=== PATIENT | female | born 1930 | race Caucasian/White ===

== ENCOUNTER 2017-06-06 18:01 | Inpatient (IN) | payer OTHER ==
--- NOTE | 2017-06-06 18:40 | PDOC ---
Attending Attestation - Resident Resident Name: NedStanOmega - ED Attending Attestation I have performed the following: I have examined & evaluated the patient, The case was reviewed & discussed with the resident, I agree w/resident's findings & plan, Exceptions are as noted - HPI HPI: 06/06/17 18:41 86yo female presents from her NH for eval of fever of 103, elevated wbc to 27, and 1 episode of n/v yesterday. Pt states feeling better today. Currently denies all complaints. No mayo. NO neck pain. No meningeal signs. No cp/sob/ cough. No abd pain. No n/v/d. No dysuria or urinary freq. Pt sent by PMD for further eval of possible sepsis. Pt is hot upon arrival. Pt with mild ecchymosis to UE. Pt awake, alert, oriented. Pt had a cxr performed outpt that was negative for acute pathology. - Physicial Exam PE: 06/06/17 18:49 Gen: awake, alert, oriented, hot to touch Head: nc/at HEENT: dry mm, cracked tongue, post pharynx clear, nares clear Neck: supple, no lymphadenopathy Heart: +s1s2 tachy Lungs: cta b/l, no rales, rhonchi, wheezing Abd: soft, diffusely ttp - specifically lower abd and suprapubic, no rebound or guarding, no cva ttp Ext: no c/c/e, scars to b/l anterior knees from prior sx, old deformity to R foot, mild weakness generally, no focal weakness Neuro: cn ii-xii grossly intact, no focal deficits skin: ecchymosis to arms, intact, hot to touch - Medical Decision Making 06/06/17 18:21 I, Dr. Gema Beth, DO, attest that this document has been prepared under my direction and personally reviewed by me in its entirety. I further attest, that it accurately reflects all work, treatment, procedures and medical decision -making performed by me. Heart Score/ECG Review - ECG Intrepretation Comment:: 06/06/17 18:52 sinus tach at 105, L axis, interventricular conduction delay, poor r wave progression
[2017-06-06] MEDS ORDERED: SODIUM CHLORIDE 0.9% 1000 ML INFUS.BAG IV STA (18:45)
[2017-06-06 19:21] LABS: VENOUS BLOOD GAS HCO3 25.5 meq/L (19-25); VENOUS PH 7.4 (7.32-7.42)
[2017-06-06 19:27] LABS: BASOPHIL 0.3 % (0-2.0); EOSINOPHIL 2.1 % (0-4.5); MCHC 33.6 g/dl (32.0-36.0); MEAN CELL VOLUME 92.4 fl (80-96); NEUTROPHILS 84.2 % (42.8-82.8); PLATELET COUNT 269 K/MM3 (134-434); RDW 13.2 % (11.6-15.6); WHITE BLOOD COUNT 16.9 K/mm3 (4.0-10.0)
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
[2017-06-06] MEDS ORDERED: PIPERACILLIN/TAZOB 3.375 GM 3.375 GM in DEXTROSE 5%-WATER - 50 ML IVPB ONE (19:41)
[2017-06-06] MEDS ORDERED: PIPERACILLIN/TAZOB 3.375 GM 50 ML IVPB ONE (20:12)
[2017-06-06 20:54] LABS: URINE APPEARANCE CLOUDY; URINE BILIRUBIN NEGATIVE (NEGATIVE); URINE BLOOD 1+ (NEGATIVE); URINE COLOR YELLOW; URINE GLUCOSE (UA) NEGATIVE (NEGATIVE); URINE KETONE NEGATIVE (NEGATIVE); URINE NITRITE POSITIVE (NEGATIVE); URINE PROTEIN NEGATIVE (NEGATIVE); URINE UROBILINOGEN NEGATIVE mg/dL (0.2-1.0)
[2017-06-06 20:55] LABS: URINE LEUK ESTERASE 3+ (NEGATIVE)
[2017-06-06 20:58] LABS: URINE BACTERIA MANY /hpf (NONE SEEN); URINE MUCUS RARE; URINE RBC 3 /hpf (0-3); URINE WBC 576 /hpf (3-5)
[2017-06-06 21:09] LABS: INR 3.25 (0.82-1.09); PROTHROMBIN TIME (PATIENT) 36.6 SEC (9.98-11.88)
[2017-06-06 21:11] LABS: ACTIVATED PTT 45.2 SECONDS (26.9-34.4)
[2017-06-06 21:21] LABS: ALBUMIN 2.7 g/dl (3.4-5.0); ALK PHOS 100 U/L (45-117); ANION GAP 10 (8-16); BILIRUBIN,TOTAL 0.6 mg/dL (0.2-1.0); CO2 23 mmol/L (21-32); CREATININE 1.4 mg/dL (0.55-1.02); GLUCOSE,RANDOM 105 mg/dL (74-106); SGOT/AST 46 U/L (15-37); SGPT/ALT 39 U/L (12-78); TOT PROT 5.8 g/dl (6.4-8.2)
[2017-06-06 21:46] LABS: CALCIUM 8.7 mg/dL (8.5-10.1)
--- NOTE | 2017-06-06 22:12 | PDOC ---
*Physical Exam - Vital Signs Last Vital Signs Temp Pulse Resp BP Pulse Ox 98 F 69 18 110/52 100 06/06/17 18:55 06/06/17 18:06 06/06/17 18:06 06/06/17 18:06 06/06/17 18:06 <AlejoraPierce - Last Filed: 06/06/17 22:12> - Vital Signs Last Vital Signs Temp Pulse Resp BP Pulse Ox 98 F 69 18 110/52 100 06/06/17 18:55 06/06/17 18:06 06/06/17 18:06 06/06/17 18:06 06/06/17 18:06 <Dilcia Aguilarew - Last Filed: 06/06/17 22:19> ED Treatment Course - LABORATORY CBC & Chemistry Diagram: 06/06/17 18:50 06/06/17 20:40 - ADDITIONAL ORDERS Additional order review: Laboratory Results 06/06/17 06/06/17 06/06/17 20:40 20:40 20:40 INR 3.25 H PTT (Actin FS) 45.2 H VBG pH POC VBG pCO2 POC VBG pO2 Mixed VBG HCO3 Sodium 135 L Potassium 4.1 Chloride 102 Carbon Dioxide 23 Anion Gap 10 BUN 35 H Creatinine 1.4 H Creat Clearance w eGFR 35.82 Random Glucose 105 Lactic Acid Calcium 8.7 Total Bilirubin 0.6 AST 46 H ALT 39 Alkaline Phosphatase 100 Creatine Kinase Troponin I Total Protein 5.8 L Albumin 2.7 L Urine Color Yellow Urine Appearance Cloudy Urine pH 7.0 Ur Specific [place] 1.010 Urine Protein Negative Urine Glucose (UA) Negative Urine Ketones Negative Urine Blood 1+ H Urine Nitrite Positive Urine Bilirubin Negative Urine Urobilinogen Negative Ur Leukocyte Esterase 3+ H Urine RBC 3 Urine WBC 576 Ur Epithelial Cells Rare Urine Bacteria Many Urine Mucus Rare 06/06/17 06/06/17 06/06/17 19:15 18:50 18:50 INR PTT (Actin FS) VBG pH 7.40 POC VBG pCO2 41.7 POC VBG pO2 38.5 Mixed VBG HCO3 25.5 H Sodium Cancelled Potassium Cancelled Chloride Cancelled Carbon Dioxide Cancelled Anion Gap Cancelled BUN Cancelled Creatinine Cancelled Creat Clearance w eGFR Cancelled Random Glucose Cancelled Lactic Acid 1.0 Calcium Cancelled Total Bilirubin Cancelled AST Cancelled ALT Cancelled Alkaline Phosphatase Cancelled Creatine Kinase Cancelled Troponin I Cancelled Total Protein Cancelled Albumin Cancelled Urine Color Urine Appearance Urine pH Ur Specific [place] Urine Protein Urine Glucose (UA) Urine Ketones Urine Blood Urine Nitrite Urine Bilirubin Urine Urobilinogen Ur Leukocyte Esterase Urine RBC Urine WBC Ur Epithelial Cells Urine Bacteria Urine Mucus 06/06/17 18:50 RBC 3.97 MCV 92.4 MCHC 33.6 RDW 13.2 MPV 7.0 L Neutrophils % 84.2 H Lymphocytes % 8.5 Monocytes % 4.9 Eosinophils % 2.1 Basophils % 0.3 - RADIOLOGY Radiology Studies Ordered: Category Date Time Status ABDOMEN & PELVIS CT W/O CONTR [CT] Stat CT Scan 06/06/17 21:41 Taken - Medications Given in the ED: ED Medications Discontinued Medications Generic Name Dose Route Start Last Admin Trade Name Freq PRN Reason Stop Dose Admin Piperacillin Sod/Tazobactam 50 mls @ 100 mls/hr 06/06/17 19:41 06/06/17 21:00 Sod 3.375 gm/ Dextrose IVPB 06/06/17 20:10 100 mls/hr ONCE ONE Administration Protocol Sodium Chloride 1,089 ml 06/06/17 18:45 06/06/17 19:41 Normal Saline - IV 06/06/17 18:46 1,089 ml ONCE STA Administration <Pierce Chand - Last Filed: 06/06/17 22:12> - LABORATORY CBC & Chemistry Diagram: 06/06/17 18:50 06/06/17 20:40 - ADDITIONAL ORDERS Additional order review: Laboratory Results 06/06/17 06/06/17 06/06/17 20:40 20:40 20:40 INR 3.25 H PTT (Actin FS) 45.2 H VBG pH POC VBG pCO2 POC VBG pO2 Mixed VBG HCO3 Sodium 135 L Potassium 4.1 Chloride 102 Carbon Dioxide 23 Anion Gap 10 BUN 35 H Creatinine 1.4 H Creat Clearance w eGFR 35.82 Random Glucose 105 Lactic Acid Calcium 8.7 Total Bilirubin 0.6 AST 46 H ALT 39 Alkaline Phosphatase 100 Creatine Kinase Troponin I Total Protein 5.8 L Albumin 2.7 L Urine Color Yellow Urine Appearance Cloudy Urine pH 7.0 Ur Specific [place] 1.010 Urine Protein Negative Urine Glucose (UA) Negative Urine Ketones Negative Urine Blood 1+ H Urine Nitrite Positive Urine Bilirubin Negative Urine Urobilinogen Negative Ur Leukocyte Esterase 3+ H Urine RBC 3 Urine WBC 576 Ur Epithelial Cells Rare Urine Bacteria Many Urine Mucus Rare 06/06/17 06/06/17 06/06/17 19:15 18:50 18:50 INR PTT (Actin FS) VBG pH 7.40 POC VBG pCO2 41.7 POC VBG pO2 38.5 Mixed VBG HCO3 25.5 H Sodium Cancelled Potassium Cancelled Chloride Cancelled Carbon Dioxide Cancelled Anion Gap Cancelled BUN Cancelled Creatinine Cancelled Creat Clearance w eGFR Cancelled Random Glucose Cancelled Lactic Acid 1.0 Calcium Cancelled Total Bilirubin Cancelled AST Cancelled ALT Cancelled Alkaline Phosphatase Cancelled Creatine Kinase Cancelled Troponin I Cancelled Total Protein Cancelled Albumin Cancelled Urine Color Urine Appearance Urine pH Ur Specific [place] Urine Protein Urine Glucose (UA) Urine Ketones Urine Blood Urine Nitrite Urine Bilirubin Urine Urobilinogen Ur Leukocyte Esterase Urine RBC Urine WBC Ur Epithelial Cells Urine Bacteria Urine Mucus 06/06/17 18:50 RBC 3.97 MCV 92.4 MCHC 33.6 RDW 13.2 MPV 7.0 L Neutrophils % 84.2 H Lymphocytes % 8.5 Monocytes % 4.9 Eosinophils % 2.1 Basophils % 0.3 - Medications Given in the ED: ED Medications Discontinued Medications Generic Name Dose Route Start Last Admin Trade Name Freq PRN Reason Stop Dose Admin Piperacillin Sod/Tazobactam 50 mls @ 100 mls/hr 06/06/17 19:41 06/06/17 21:00 Sod 3.375 gm/ Dextrose IVPB 06/06/17 20:10 100 mls/hr ONCE ONE Administration Protocol Sodium Chloride 1,089 ml 06/06/17 18:45 06/06/17 19:41 Normal Saline - IV 06/06/17 18:46 1,089 ml ONCE STA Administration <Jesu Aguilar - Last Filed: 06/06/17 22:19> Medical Decision Making - Medical Decision Making 06/06/17 22:[address] Armando Yi @21:59pm. Case discussed. <Jesu Aguilar - Last Filed: 06/06/17 22:19> *DC/Admit/Observation/Transfer - Discharge Dispostion Admit: Yes <Pierce Chand - Last Filed: 09/06/17 22:12> <Jesu Aguilar - Last Filed: 06/06/17 22:19> Diagnosis at time of Disposition: UTI (urinary tract infection) Qualifiers: Indwelling urinary catheter type: unspecified - Referrals Referrals: Armando Pierce MD [Primary Care Provider] - - Patient Instructions - Post Discharge Activity
[2017-06-06 22:15] LABS: CPK 218 IU/L (26-192)
[2017-06-06 22:16] LABS: TROPONIN I < 0.02 ng/ml (0.00-0.05)
[2017-06-06] MEDS ORDERED: ACETAMINOPHEN 325 MG TABLET (FP) PO PRN (22:31)
[2017-06-07 00:27] VITALS: BMI 26.9
[2017-06-07 07:48] LABS: MCH 30.1 pg (25.7-33.7); MCHC 32.9 g/dl (32.0-36.0); MEAN CELL VOLUME 91.5 fl (80-96); MEAN PLT VOLUME 6.9 fl (7.5-11.1); PLATELET COUNT 322 K/MM3 (134-434); RDW 13.4 % (11.6-15.6); WHITE BLOOD COUNT 13.8 K/mm3 (4.0-10.0)
[2017-06-07 08:03] LABS: INR 3.02 (0.82-1.09)
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
--- NOTE | 2017-06-07 08:26 | PN ---
Teaching Attending Note Name of Resident: Bernardo Gavin ATTENDING PHYSICIAN STATEMENT I saw and evaluated the patient. I reviewed the resident's note and discussed the case with the resident. I agree with the resident's findings and plan as documented. SUBJECTIVE:Brought for evaluation of fever 103 Alert NAD "NOt sure why she is here" OBJECTIVE: ASSESSMENT AND PLAN: Selected Entries 06/07/17 06:00 Temperature 99.4 F Pulse Rate 73 Respiratory 20 Rate Blood Pressure 97/47 Lung Clear Cor S1 S2 RR Abd Suprapubic tenderness Microbiology Laboratory Tests 06/06/17 06/06/17 06/06/17 18:50 18:50 20:40 WBC 16.9 H Hgb 12.3 Plt Count 269 BUN Creatinine Creat Clearance w eGFR Lactic Acid 1.0 Ur Leukocyte Esterase 3+ H Urine RBC 3 Urine WBC 576 06/06/17 20:40 WBC Hgb Plt Count BUN 35 H Creatinine 1.4 H Creat Clearance w eGFR 35.82 Lactic Acid Ur Leukocyte Esterase Urine RBC Urine WBC ASSESSMENT FEVER AND UTI PLAN CEFTRIAXONE 1 GRAM DAILY PENDING C/S CT ABD REVIEWED DOUBT INTRABD INFECTION Problem List - Problems (1) Fever Code(s): R50.9 - FEVER, UNSPECIFIED
[2017-06-07 08:39] LABS: ALBUMIN 2.8 g/dl (3.4-5.0); ALK PHOS 99 U/L (45-117); ANION GAP 11 (8-16); BILIRUBIN,TOTAL 0.8 mg/dL (0.2-1.0); CALCIUM 9.1 mg/dL (8.5-10.1); CO2 23 mmol/L (21-32); CREATININE 1.4 mg/dL (0.55-1.02); GLUCOSE,RANDOM 86 mg/dL (74-106); SGOT/AST 39 U/L (15-37); SGPT/ALT 39 U/L (12-78); TOT PROT 5.7 g/dl (6.4-8.2)
[2017-06-07] MEDS ORDERED: PT OWN MED DRAWER 7, Y5N ONE ×2 (09:23→11:45)
[2017-06-07] MEDS ORDERED: cefTRIAXone SODIUM 1 GM VIAL ONE (09:24)
[2017-06-07] MEDS ORDERED: DEXTROSE 5%-WATER - 50 ML IVPB ONE (09:24)
[2017-06-07] MEDS: SPIRONOLACTONE 25 MG TABLET (FP) PO SCH (09:30)
[2017-06-07] MEDS: ASPIRIN 81 MG CHEWABLE TABLETS PO SCH (09:31)
[2017-06-07] MEDS: CARVEDILOL 6.25 MG TABLET (FP) PO SCH (09:31)
[2017-06-07] MEDS: OXYBUTYNIN CHLORIDE 5 MG TABLET PO SCH (09:31)
[2017-06-07] MEDS: LACTOBACILLUS ACIDOPHILUS 1 EACH TAB (FP) PO SCH ×2 (09:31→21:24)
[2017-06-07] MEDS: PANTOPRAZOLE 40 MG TABLET (FP) PO SCH (09:32)
[2017-06-07] MEDS: SIMETHICONE 80 MG TAB.CHEW (FP) PO SCH (09:32)
[2017-06-07] MEDS: CHOLECALCIFEROL (VITAMIN D3) 1,000 UNIT TABLET (FP) PO SCH (09:32)
[2017-06-07] MEDS: SENNOSIDES 8.6MG TABLET (FP) PO SCH (09:32)
[2017-06-07] MEDS: MULTIVITAMINS (DAILY MVI) TABLET (FP) PO SCH (09:32)
[2017-06-07] MEDS: ASCORBIC ACID 500 MG TABLET (FP) PO SCH (09:32)
[2017-06-07] MEDS: CEFTRIAXONE 1 GM in DEXTROSE 5%-WATER - 50 ML IVPB SCH (09:33)
[2017-06-07] MEDS ORDERED: cefTRIAXone 1 GM/50 ML BAG (PRE-DOCKED) IVPB SCH (10:00)
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
[2017-06-07] MEDS: DOCUSATE NA 100 MG/10 ML UNIT-DOSE CUPS PO SCH (11:48)
--- NOTE | 2017-06-07 12:26 | EKG ---
Test Reason : Blood Pressure : / mmHG Vent. Rate : 105 BPM Atrial Rate : 105 BPM P-R Int : 320 ms QRS Dur : 140 ms QT Int : 392 ms P-R-T Axes : 073 -49 084 degrees QTc Int : 518 ms SINUS TACHYCARDIA WITH 1ST DEGREE A-V BLOCK LEFT AXIS DEVIATION NON-SPECIFIC INTRA-VENTRICULAR CONDUCTION BLOCK CANNOT RULE OUT ANTERIOR INFARCT , AGE UNDETERMINED ABNORMAL ECG NO PREVIOUS ECGS AVAILABLE Confirmed by MONALISA ALEJO, SANDOR ([id number]) on 06/07/2017 12:26:13 PM Referred By: Confirmed By:SANDOR SHELDON MD
[2017-06-07] MEDS: WARFARIN NA 2 MG TABLET (UD) PO SCH (17:59)
[2017-06-07] MEDS: ROSUVASTATIN CA 5 MG TABLET (FP) PO SCH (21:24)
[2017-06-08 08:00] LABS: MCH 30.4 pg (25.7-33.7); MCHC 33.1 g/dl (32.0-36.0); MEAN PLT VOLUME 6.8 fl (7.5-11.1); PLATELET COUNT 340 K/MM3 (134-434); RDW 13.1 % (11.6-15.6); WHITE BLOOD COUNT 11.1 K/mm3 (4.0-10.0)
[2017-06-08 08:19] LABS: INR 1.91 (0.82-1.09); PROTHROMBIN TIME (PATIENT) 21.3 SEC (9.98-11.88)
[2017-06-08 08:30] LABS: ALBUMIN 2.6 g/dl (3.4-5.0); ALK PHOS 99 U/L (45-117); ANION GAP 12 (8-16); BILIRUBIN,TOTAL 0.7 mg/dL (0.2-1.0); CALCIUM 9.4 mg/dL (8.5-10.1); CO2 22 mmol/L (21-32); CREATININE 1.4 mg/dL (0.55-1.02); GLUCOSE,RANDOM 86 mg/dL (74-106); SGOT/AST 32 U/L (15-37); SGPT/ALT 32 U/L (12-78); TOT PROT 5.8 g/dl (6.4-8.2)
--- NOTE | 2017-06-08 09:29 | PN ---
Progress Note, Physician History of Present Illness: Pt w/o fever, chills, SOB, CP, palp, abd pain, diarrhea, dysuria. - Current Medication List Current Medications: Active Medications Acetaminophen (Tylenol -) 650 mg PO Q6H PRN PRN Reason: FEVER OR PAIN Ascorbic Acid (Vitamin C -) 500 mg PO DAILY [facility] Last Admin: 06/07/17 09:32 Dose: 500 mg Aspirin (Asa -) 81 mg PO DAILY [facility] Last Admin: 06/07/17 09:31 Dose: 81 mg Carvedilol (Coreg -) 6.25 mg PO DAILY [facility] Last Admin: 06/07/17 09:31 Dose: 6.25 mg Cholecalciferol (Vitamin D3 -) 1,000 unit PO DAILY [facility] Last Admin: 06/07/17 09:32 Dose: 1,000 unit Docusate Sodium (Colace Liquid -) 150 mg PO DAILY [facility] Last Admin: 06/07/17 11:48 Dose: 150 mg Ceftriaxone Sodium 1 gm/ (Dextrose) 50 mls @ 100 mls/hr IVPB DAILY [facility] Last Admin: 06/07/17 09:33 Dose: 100 mls/hr Lactobacillus Acidophilus (Bacid -) 1 tab PO BID [facility] Last Admin: 06/07/17 21:24 Dose: 1 tab Multivitamins/Minerals/Vitamin C (Tab-A-Vit -) 1 tab PO DAILY [facility] Last Admin: 06/07/17 09:32 Dose: 1 tab Oxybutynin Chloride (Ditropan -) 5 mg PO DAILY [facility] Last Admin: 06/07/17 09:31 Dose: 5 mg Pantoprazole Sodium (Protonix -) 40 mg PO DAILY [facility] Last Admin: 06/07/17 09:32 Dose: 40 mg Rosuvastatin Calcium (Crestor -) 5 mg PO HS [facility] Last Admin: 06/07/17 21:24 Dose: 5 mg Senna (Senna -) 1 tab PO DAILY [facility] Last Admin: 06/07/17 09:32 Dose: 1 tab Simethicone (Mylicon -) 80 mg PO DAILY [facility] Last Admin: 06/07/17 09:32 Dose: 80 mg Spironolactone (Aldactone -) 25 mg PO DAILY [facility] Last Admin: 06/07/17 09:30 Dose: 25 mg Warfarin Sodium (Coumadin -) 4 mg PO TuThSa@1800 [facility] Last Admin: 06/07/17 17:59 Dose: Not Given Warfarin Sodium (Coumadin -) 6 mg PO SuMoWeFr@1800 [facility] - Objective Vital Signs: Vital Signs Temperature 97.7 F 06/08/17 06:00 Pulse Rate 67 06/08/17 06:00 Respiratory Rate 20 06/08/17 06:00 Blood Pressure 121/57 06/08/17 06:00 O2 Sat by Pulse Oximetry (%) 100 06/07/17 21:00 Constitutional: Yes: No Distress, Calm Cardiovascular: Yes: Regular Rate and Rhythm, S1, S2 Respiratory: Yes: Regular, CTA Bilaterally. No: Rales Gastrointestinal: Yes: Normal Bowel Sounds, Soft. No: Tenderness Edema: No Neurological: Yes: Alert, Oriented Labs: CBC, BMP 06/08/17 06:00 06/08/17 06:00 INR, PTT INR 1.91 (0.82-1.09) H D 06/08/17 06:00 Problem List - Problems (1) UTI (urinary tract infection) Code(s): N39.0 - URINARY TRACT INFECTION, SITE NOT SPECIFIED (2) Sepsis Code(s): A41.9 - SEPSIS, UNSPECIFIED ORGANISM (3) Atrial fibrillation Code(s): I48.91 - UNSPECIFIED ATRIAL FIBRILLATION (4) Hypertension Code(s): I10 - ESSENTIAL (PRIMARY) HYPERTENSION Assessment/Plan IV abtx ID consult; case was d/w Dr. Morales. AM labs F/u INR Encourage PO fluids AM labs PT
--- NOTE | 2017-06-08 09:44 | PN ---
Progress Note, Physician History of Present Illness: History 86 year old female from nursing facility with pmh HTN, HLD, Afib, CABG, presented to the ED for 1 episode of n/v and fevers of 103. Patient is a poor historian and is unable to recall certain aspects of her medical history. As per ED, patient came with PCP eval for sepsis. In the ED, patient was found to have a positive UA for UTI. ID consulted for management of UTI. Patient currently denies any current complaints. Denies recent travel, sick contacts, pet contacts. Progress (06/08/17) Patient seen and examined at bedside. No overnight events, denies any current complaints. Denies chest pain, SOB, nausea, vomiting, abdominal pain, suprapubic pain, back pain, dysuria. - Current Medication List Current Medications: Active Medications Acetaminophen (Tylenol -) 650 mg PO Q6H PRN PRN Reason: FEVER OR PAIN Ascorbic Acid (Vitamin C -) 500 mg PO DAILY [facility] Last Admin: 06/07/17 09:32 Dose: 500 mg Aspirin (Asa -) 81 mg PO DAILY [facility] Last Admin: 06/07/17 09:31 Dose: 81 mg Carvedilol (Coreg -) 6.25 mg PO DAILY [facility] Last Admin: 06/07/17 09:31 Dose: 6.25 mg Cholecalciferol (Vitamin D3 -) 1,000 unit PO DAILY [facility] Last Admin: 06/07/17 09:32 Dose: 1,000 unit Docusate Sodium (Colace Liquid -) 150 mg PO DAILY [facility] Last Admin: 06/07/17 11:48 Dose: 150 mg Ceftriaxone Sodium 1 gm/ (Dextrose) 50 mls @ 100 mls/hr IVPB DAILY [facility] Last Admin: 06/07/17 09:33 Dose: 100 mls/hr Lactobacillus Acidophilus (Bacid -) 1 tab PO BID [facility] Last Admin: 06/07/17 21:24 Dose: 1 tab Multivitamins/Minerals/Vitamin C (Tab-A-Vit -) 1 tab PO DAILY [facility] Last Admin: 06/07/17 09:32 Dose: 1 tab Oxybutynin Chloride (Ditropan -) 5 mg PO DAILY [facility] Last Admin: 06/07/17 09:31 Dose: 5 mg Pantoprazole Sodium (Protonix -) 40 mg PO DAILY [facility] Last Admin: 06/07/17 09:32 Dose: 40 mg Rosuvastatin Calcium (Crestor -) 5 mg PO [facility] Last Admin: 06/07/17 21:24 Dose: 5 mg Senna (Senna -) 1 tab PO DAILY [facility] Last Admin: 06/07/17 09:32 Dose: 1 tab Simethicone (Mylicon -) 80 mg PO DAILY [facility] Last Admin: 06/07/17 09:32 Dose: 80 mg Spironolactone (Aldactone -) 25 mg PO DAILY [facility] Last Admin: 06/07/17 09:30 Dose: 25 mg Warfarin Sodium (Coumadin -) 4 mg PO TuThSa@1800 [facility] Last Admin: 06/07/17 17:59 Dose: Not Given Warfarin Sodium (Coumadin -) 6 mg PO SuMoWeFr@1800 [facility] - Objective Vital Signs: Vital Signs Temperature 97.7 F 06/08/17 06:00 Pulse Rate 67 06/08/17 06:00 Respiratory Rate 20 06/08/17 06:00 Blood Pressure 121/57 06/08/17 06:00 O2 Sat by Pulse Oximetry (%) 100 06/07/17 21:00 Constitutional: Yes: No Distress, Calm Eyes: Yes: Conjunctiva Clear, EOM Intact HENT: Yes: Atraumatic, Normocephalic Neck: Yes: Supple, Trachea Midline Cardiovascular: Yes: Regular Rate and Rhythm, Murmur (systolic murmur appreciated), S1, S2. No: Gallop, Rub Respiratory: Yes: Regular, CTA Bilaterally. No: Rales, SOB, SOB on Exertion, Stridor, Tachypnea, Wheezes Gastrointestinal: Yes: Normal Bowel Sounds, Soft Musculoskeletal: Yes: WNL Extremities: Yes: WNL Edema: No Peripheral Pulses WNL: Yes Integumentary: Yes: WNL Neurological: Yes: Alert, Oriented, Cran Nerves II-XII Intact Labs: CBC, BMP 06/08/17 06:00 06/08/17 06:00 INR, PTT INR 1.91 (0.82-1.09) H D 06/08/17 06:00 - ....Imaging Cat Scan: Report Reviewed Problem List - Problems (1) UTI (urinary tract infection) Code(s): N39.0 - URINARY TRACT INFECTION, SITE NOT SPECIFIED Qualifiers: Indwelling urinary catheter type: unspecified Assessment/Plan Microbiology 06/06/17 20:40 Urine - Urine - Catheterized Urine Culture - Preliminary Lactose Fermenting Neg Bacilli 06/06/17 20:40 Blood - Peripheral Venous Blood Culture - Preliminary NO GROWTH OBTAINED AFTER 24 HOURS, INCUBATION TO CONTINUE FOR 4 DAYS. 06/06/17 18:50 Blood - Peripheral Venous Blood Culture - Preliminary NO GROWTH OBTAINED AFTER 24 HOURS, INCUBATION TO CONTINUE FOR 4 DAYS. Laboratory Tests 06/07/17 06/07/17 06/08/17 06:00 06:00 06:00 WBC 11.1 H ESR 86 H BUN Creatinine C-Reactive Protein 14.6 H 06/08/17 06:00 WBC ESR BUN 34 H Creatinine 1.4 H C-Reactive Protein 86 year old female from nursing facility pmh HTN, HLD, Afib, CABG, admitted for UTI/possible sepsis -clinically improved -rocephin 1 gram torday, likely switch to PO pending cultures -WBC trending down (11.1 today)
--- NOTE | 2017-06-08 10:14 | PN ---
Progress Note, Physician Chief Complaint: ID Ceftriaxone She feels better now and eating well - Current Medication List Current Medications: Active Medications Acetaminophen (Tylenol -) 650 mg PO Q6H PRN PRN Reason: FEVER OR PAIN Ascorbic Acid (Vitamin C -) 500 mg PO DAILY [facility] Last Admin: 06/07/17 09:32 Dose: 500 mg Aspirin (Asa -) 81 mg PO DAILY [facility] Last Admin: 06/07/17 09:31 Dose: 81 mg Carvedilol (Coreg -) 6.25 mg PO DAILY [facility] Last Admin: 06/07/17 09:31 Dose: 6.25 mg Cholecalciferol (Vitamin D3 -) 1,000 unit PO DAILY [facility] Last Admin: 06/07/17 09:32 Dose: 1,000 unit Docusate Sodium (Colace Liquid -) 150 mg PO DAILY [facility] Last Admin: 06/07/17 11:48 Dose: 150 mg Ceftriaxone Sodium 1 gm/ (Dextrose) 50 mls @ 100 mls/hr IVPB DAILY [facility] Last Admin: 06/07/17 09:33 Dose: 100 mls/hr Lactobacillus Acidophilus (Bacid -) 1 tab PO BID [facility] Last Admin: 06/07/17 21:24 Dose: 1 tab Multivitamins/Minerals/Vitamin C (Tab-A-Vit -) 1 tab PO DAILY [facility] Last Admin: 06/07/17 09:32 Dose: 1 tab Oxybutynin Chloride (Ditropan -) 5 mg PO DAILY [facility] Last Admin: 06/07/17 09:31 Dose: 5 mg Pantoprazole Sodium (Protonix -) 40 mg PO DAILY [facility] Last Admin: 06/07/17 09:32 Dose: 40 mg Rosuvastatin Calcium (Crestor -) 5 mg PO [facility] Last Admin: 06/07/17 21:24 Dose: 5 mg Senna (Senna -) 1 tab PO DAILY [facility] Last Admin: 06/07/17 09:32 Dose: 1 tab Simethicone (Mylicon -) 80 mg PO DAILY [facility] Last Admin: 06/07/17 09:32 Dose: 80 mg Spironolactone (Aldactone -) 25 mg PO DAILY [facility] Last Admin: 06/07/17 09:30 Dose: 25 mg Warfarin Sodium (Coumadin -) 4 mg PO TuThSa@1800 [facility] Last Admin: 06/07/17 17:59 Dose: Not Given Warfarin Sodium (Coumadin -) 6 mg PO SuMoWeFr@1800 [facility] Warfarin Sodium (Coumadin -) 2 mg PO ONCE@1800 [facility] Stop: 06/08/17 18:01 - Objective Vital Signs: Vital Signs Temperature 97.7 F 06/08/17 06:00 Pulse Rate 67 06/08/17 06:00 Respiratory Rate 20 06/08/17 06:00 Blood Pressure 121/57 06/08/17 06:00 O2 Sat by Pulse Oximetry (%) 100 06/07/17 21:00 Constitutional: Yes: Well Nourished, No Distress HENT: Yes: WNL, Atraumatic Neck: Yes: WNL, Supple Cardiovascular: Yes: Regular Rate and Rhythm, S1, S2 Respiratory: Yes: WNL, Regular, CTA Bilaterally Gastrointestinal: Yes: WNL, Normal Bowel Sounds, Soft. No: Tenderness, Tenderness, Epigastrium Edema: No Labs: CBC, BMP 06/08/17 06:00 06/08/17 06:00 INR, PTT INR 1.91 (0.82-1.09) H D 06/08/17 06:00 Problem List - Problems (1) Fever Code(s): R50.9 - FEVER, UNSPECIFIED Assessment/Plan Microbiology 06/06/17 20:40 Urine - Urine - Catheterized Urine Culture - Preliminary Lactose Fermenting Neg Bacilli 06/06/17 20:40 Blood - Peripheral Venous Blood Culture - Preliminary NO GROWTH OBTAINED AFTER 24 HOURS, INCUBATION TO CONTINUE FOR 4 DAYS. 06/06/17 18:50 Blood - Peripheral Venous Blood Culture - Preliminary NO GROWTH OBTAINED AFTER 24 HOURS, INCUBATION TO CONTINUE FOR 4 DAYS. Laboratory Tests 06/06/17 06/07/17 06/07/17 18:50 06:00 06:00 WBC 16.9 H 13.8 H Hgb Plt Count ESR 86 H BUN Creatinine 06/08/17 06/08/17 06:00 06:00 WBC 11.1 H Hgb 12.0 Plt Count 340 ESR BUN 34 H Creatinine 1.4 H Assessment Fever and urinary infection GNB improving Plan Continue Ceftriaxone with switch to po therapy perhaps tomorrow pending c/s Carmen ALEJO
[2017-06-08] MEDS ORDERED: cefTRIAXone SODIUM 1 GM VIAL ONE (10:17)
[2017-06-08] MEDS ORDERED: DEXTROSE 5%-WATER - 50 ML IVPB ONE (10:17)
[2017-06-08] MEDS: ASCORBIC ACID 500 MG TABLET (FP) PO SCH (10:24)
[2017-06-08] MEDS: ASPIRIN 81 MG CHEWABLE TABLETS PO SCH (10:24)
[2017-06-08] MEDS: CARVEDILOL 6.25 MG TABLET (FP) PO SCH (10:24)
[2017-06-08] MEDS: LACTOBACILLUS ACIDOPHILUS 1 EACH TAB (FP) PO SCH ×2 (10:24→21:44)
[2017-06-08] MEDS: PANTOPRAZOLE 40 MG TABLET (FP) PO SCH (10:24)
[2017-06-08] MEDS: SPIRONOLACTONE 25 MG TABLET (FP) PO SCH (10:24)
[2017-06-08] MEDS: OXYBUTYNIN CHLORIDE 5 MG TABLET PO SCH (10:24)
[2017-06-08] MEDS: CHOLECALCIFEROL (VITAMIN D3) 1,000 UNIT TABLET (FP) PO SCH (10:24)
[2017-06-08] MEDS: SENNOSIDES 8.6MG TABLET (FP) PO SCH (10:24)
[2017-06-08] MEDS: MULTIVITAMINS (DAILY MVI) TABLET (FP) PO SCH (10:24)
[2017-06-08] MEDS: SIMETHICONE 80 MG TAB.CHEW (FP) PO SCH (10:25)
[2017-06-08] MEDS: CEFTRIAXONE 1 GM in DEXTROSE 5%-WATER - 50 ML IVPB SCH (10:25)
[2017-06-08] MEDS: DOCUSATE NA 100 MG/10 ML UNIT-DOSE CUPS PO SCH (10:49)
[2017-06-08] MEDS ORDERED: WARFARIN NA 2 MG TABLET (UD) PO ONE (18:00)
[2017-06-08] MEDS: WARFARIN NA 3 MG TABLET PO SCH (18:25)
[2017-06-08] MEDS ORDERED: PT OWN MED DRAWER 7, Y5N ONE (21:43)
[2017-06-08] MEDS: ROSUVASTATIN CA 5 MG TABLET (FP) PO SCH (21:44)
[2017-06-09 07:42] LABS: MCH 30.5 pg (25.7-33.7); MCHC 33.5 g/dl (32.0-36.0); MEAN CELL VOLUME 91.1 fl (80-96); MEAN PLT VOLUME 6.8 fl (7.5-11.1); PLATELET COUNT 352 K/MM3 (134-434); RDW 13.1 % (11.6-15.6); WHITE BLOOD COUNT 11.4 K/mm3 (4.0-10.0)
[2017-06-09 07:55] LABS: INR 1.66 (0.82-1.09); PROTHROMBIN TIME (PATIENT) 18.4 SEC (9.98-11.88)
[2017-06-09 08:33] LABS: ALBUMIN 2.5 g/dl (3.4-5.0); ALK PHOS 98 U/L (45-117); ANION GAP 12 (8-16); BILIRUBIN,TOTAL 0.5 mg/dL (0.2-1.0); CALCIUM 9.1 mg/dL (8.5-10.1); CO2 22 mmol/L (21-32); CREATININE 1.4 mg/dL (0.55-1.02); GLUCOSE,RANDOM 84 mg/dL (74-106); SGOT/AST 29 U/L (15-37); SGPT/ALT 31 U/L (12-78); TOT PROT 5.6 g/dl (6.4-8.2)
[2017-06-09] MEDS ORDERED: DEXTROSE 5%-WATER - 50 ML IVPB ONE (10:00)
[2017-06-09] MEDS ORDERED: cefTRIAXone SODIUM 1 GM VIAL ONE (10:00)
[2017-06-09] MEDS: SPIRONOLACTONE 25 MG TABLET (FP) PO SCH (10:02)
[2017-06-09] MEDS: SIMETHICONE 80 MG TAB.CHEW (FP) PO SCH (10:03)
[2017-06-09] MEDS: OXYBUTYNIN CHLORIDE 5 MG TABLET PO SCH (10:03)
[2017-06-09] MEDS: CARVEDILOL 6.25 MG TABLET (FP) PO SCH (10:03)
[2017-06-09] MEDS: CHOLECALCIFEROL (VITAMIN D3) 1,000 UNIT TABLET (FP) PO SCH (10:03)
[2017-06-09] MEDS: CEFTRIAXONE 1 GM in DEXTROSE 5%-WATER - 50 ML IVPB SCH (10:03)
[2017-06-09] MEDS: PANTOPRAZOLE 40 MG TABLET (FP) PO SCH (10:03)
[2017-06-09] MEDS: SENNOSIDES 8.6MG TABLET (FP) PO SCH (10:03)
[2017-06-09] MEDS: ASCORBIC ACID 500 MG TABLET (FP) PO SCH (10:03)
[2017-06-09] MEDS: MULTIVITAMINS (DAILY MVI) TABLET (FP) PO SCH (10:03)
[2017-06-09] MEDS: LACTOBACILLUS ACIDOPHILUS 1 EACH TAB (FP) PO SCH ×2 (10:03→23:49)
[2017-06-09] MEDS: DOCUSATE NA 100 MG/10 ML UNIT-DOSE CUPS PO SCH (10:04)
[2017-06-09] MEDS: ASPIRIN 81 MG CHEWABLE TABLETS PO SCH (10:06)
--- NOTE | 2017-06-09 11:54 | PN ---
Progress Note, Physician History of Present Illness: Awake, alert No complaints Denies dysuria No fever/ chills Afebrile WBC improved 11.4 BC (-) Urine c/s LF - Current Medication List Current Medications: Active Medications Acetaminophen (Tylenol -) 650 mg PO Q6H PRN PRN Reason: FEVER OR PAIN Ascorbic Acid (Vitamin C -) 500 mg PO DAILY [facility] Last Admin: 06/09/17 10:03 Dose: 500 mg Aspirin (Asa -) 81 mg PO DAILY [facility] Last Admin: 06/09/17 10:06 Dose: 81 mg Carvedilol (Coreg -) 6.25 mg PO DAILY [facility] Last Admin: 06/09/17 10:03 Dose: 6.25 mg Cholecalciferol (Vitamin D3 -) 1,000 unit PO DAILY [facility] Last Admin: 06/09/17 10:03 Dose: 1,000 unit Docusate Sodium (Colace Liquid -) 150 mg PO DAILY [facility] Last Admin: 06/09/17 10:04 Dose: Not Given Ceftriaxone Sodium 1 gm/ (Dextrose) 50 mls @ 100 mls/hr IVPB DAILY [facility] Last Admin: 06/09/17 10:03 Dose: 100 mls/hr Lactobacillus Acidophilus (Bacid -) 1 tab PO BID [facility] Last Admin: 06/09/17 10:03 Dose: 1 tab Multivitamins/Minerals/Vitamin C (Tab-A-Vit -) 1 tab PO DAILY [facility] Last Admin: 06/09/17 10:03 Dose: 1 tab Oxybutynin Chloride (Ditropan -) 5 mg PO DAILY [facility] Last Admin: 06/09/17 10:03 Dose: 5 mg Pantoprazole Sodium (Protonix -) 40 mg PO DAILY [facility] Last Admin: 06/09/17 10:03 Dose: 40 mg Rosuvastatin Calcium (Crestor -) 5 mg PO HS [facility] Last Admin: 06/08/17 21:44 Dose: 5 mg Senna (Senna -) 1 tab PO DAILY [facility] Last Admin: 06/09/17 10:03 Dose: 1 tab Simethicone (Mylicon -) 80 mg PO DAILY [facility] Last Admin: 06/09/17 10:03 Dose: 80 mg Spironolactone (Aldactone -) 25 mg PO DAILY [facility] Last Admin: 06/09/17 10:02 Dose: 25 mg Warfarin Sodium (Coumadin -) 4 mg PO TuThSa@1800 [facility] Last Admin: 06/07/17 17:59 Dose: Not Given Warfarin Sodium (Coumadin -) 6 mg PO SuMoWeFr@1800 [facility] Last Admin: 06/08/17 18:25 Dose: 6 mg - Objective Vital Signs: Vital Signs Temperature 98.8 F 06/09/17 10:00 Pulse Rate 78 06/09/17 10:00 Respiratory Rate 18 06/09/17 10:00 Blood Pressure 126/69 06/09/17 10:00 O2 Sat by Pulse Oximetry (%) 98 06/09/17 09:00 Constitutional: Yes: No Distress Eyes: Yes: Conjunctiva Clear Cardiovascular: Yes: Regular Rate and Rhythm, S1, S2 Respiratory: Yes: CTA Bilaterally Gastrointestinal: Yes: Normal Bowel Sounds, Soft, Abdomen, Obese. No: Tenderness Edema: Yes Edema: LLE: 1+, RLE: 1+ Labs: CBC, BMP 06/09/17 06:00 06/09/17 06:00 INR, PTT INR 1.66 (0.82-1.09) H 06/09/17 06:00 Assessment/Plan UTI Leukocytosis- improved Continue empiric ceftriaxone Await final urine c/s result
--- NOTE | 2017-06-09 16:10 | PN ---
Progress Note, Physician History of Present Illness: Pt w/o fever, chills, SOB, CP, palp, abd pain, diarrhea, dysuria. - Current Medication List Current Medications: Active Medications Acetaminophen (Tylenol -) 650 mg PO Q6H PRN PRN Reason: FEVER OR PAIN Ascorbic Acid (Vitamin C -) 500 mg PO DAILY [facility] Last Admin: 06/09/17 10:03 Dose: 500 mg Aspirin (Asa -) 81 mg PO DAILY [facility] Last Admin: 06/09/17 10:06 Dose: 81 mg Carvedilol (Coreg -) 6.25 mg PO DAILY [facility] Last Admin: 06/09/17 10:03 Dose: 6.25 mg Cholecalciferol (Vitamin D3 -) 1,000 unit PO DAILY [facility] Last Admin: 06/09/17 10:03 Dose: 1,000 unit Docusate Sodium (Colace Liquid -) 150 mg PO DAILY [facility] Last Admin: 06/09/17 10:04 Dose: Not Given Ceftriaxone Sodium 1 gm/ (Dextrose) 50 mls @ 100 mls/hr IVPB DAILY [facility] Last Admin: 06/09/17 10:03 Dose: 100 mls/hr Lactobacillus Acidophilus (Bacid -) 1 tab PO BID [facility] Last Admin: 06/09/17 10:03 Dose: 1 tab Multivitamins/Minerals/Vitamin C (Tab-A-Vit -) 1 tab PO DAILY [facility] Last Admin: 06/09/17 10:03 Dose: 1 tab Oxybutynin Chloride (Ditropan -) 5 mg PO DAILY [facility] Last Admin: 06/09/17 10:03 Dose: 5 mg Pantoprazole Sodium (Protonix -) 40 mg PO DAILY [facility] Last Admin: 06/09/17 10:03 Dose: 40 mg Rosuvastatin Calcium (Crestor -) 5 mg PO HS [facility] Last Admin: 06/08/17 21:44 Dose: 5 mg Senna (Senna -) 1 tab PO DAILY [facility] Last Admin: 06/09/17 10:03 Dose: 1 tab Simethicone (Mylicon -) 80 mg PO DAILY [facility] Last Admin: 06/09/17 10:03 Dose: 80 mg Spironolactone (Aldactone -) 25 mg PO DAILY [facility] Last Admin: 06/09/17 10:02 Dose: 25 mg Warfarin Sodium (Coumadin -) 4 mg PO TuThSa@1800 [facility] Last Admin: 06/07/17 17:59 Dose: Not Given Warfarin Sodium (Coumadin -) 6 mg PO SuMoWeFr@1800 [facility] Last Admin: 06/08/17 18:25 Dose: 6 mg - Objective Vital Signs: Vital Signs Temperature 97.9 F 06/09/17 14:30 Pulse Rate 70 06/09/17 14:30 Respiratory Rate 20 06/09/17 14:30 Blood Pressure 103/52 06/09/17 14:30 O2 Sat by Pulse Oximetry (%) 98 06/09/17 09:00 Constitutional: Yes: No Distress, Calm Cardiovascular: Yes: Regular Rate and Rhythm, S1, S2 Respiratory: Yes: Regular, CTA Bilaterally Gastrointestinal: Yes: Normal Bowel Sounds, Soft. No: Tenderness Edema: No Neurological: Yes: Alert, Oriented Labs: CBC, BMP 06/09/17 06:00 06/09/17 06:00 INR, PTT INR 1.66 (0.82-1.09) H 06/09/17 06:00 Problem List - Problems (1) UTI (urinary tract infection) Code(s): N39.0 - URINARY TRACT INFECTION, SITE NOT SPECIFIED Qualifiers: Indwelling urinary catheter type: unspecified (2) Sepsis Code(s): A41.9 - SEPSIS, UNSPECIFIED ORGANISM (3) Atrial fibrillation Code(s): I48.91 - UNSPECIFIED ATRIAL FIBRILLATION (4) Hypertension Code(s): I10 - ESSENTIAL (PRIMARY) HYPERTENSION (5) Subtherapeutic anticoagulation Code(s): Z51.81 - ENCOUNTER FOR THERAPEUTIC DRUG LEVEL MONITORING 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 Extra Coumadin tonight (also). F/u INR Encourage PO fluids AM labs PT
[2017-06-09] MEDS: WARFARIN NA 2 MG TABLET (UD) PO SCH (17:40)
[2017-06-09] MEDS ORDERED: WARFARIN NA 2 MG TABLET (UD) PO ONE (18:00)
[2017-06-09] MEDS ORDERED: PT OWN MED DRAWER 7, Y5N ONE (23:17)
[2017-06-09] MEDS: ROSUVASTATIN CA 5 MG TABLET (FP) PO SCH (23:49)
[2017-06-10 08:17] LABS: MCH 30.8 pg (25.7-33.7); MCHC 33.5 g/dl (32.0-36.0); MEAN CELL VOLUME 91.7 fl (80-96); MEAN PLT VOLUME 6.8 fl (7.5-11.1); PLATELET COUNT 344 K/MM3 (134-434); RDW 12.9 % (11.6-15.6); WHITE BLOOD COUNT 10.8 K/mm3 (4.0-10.0)
[2017-06-10 08:26] LABS: INR 2.09 (0.82-1.09); PROTHROMBIN TIME (PATIENT) 23.3 SEC (9.98-11.88)
[2017-06-10 08:43] LABS: ANION GAP 11 (8-16); CALCIUM 9.1 mg/dL (8.5-10.1); CO2 24 mmol/L (21-32); CREATININE 1.4 mg/dL (0.55-1.02); GLUCOSE,RANDOM 80 mg/dL (74-106)
[2017-06-10] MEDS ORDERED: PT OWN MED DRAWER 7, Y5N ONE ×4 (11:32→21:38)
[2017-06-10] MEDS: DOCUSATE NA 100 MG/10 ML UNIT-DOSE CUPS PO SCH (11:46)
[2017-06-10] MEDS: SIMETHICONE 80 MG TAB.CHEW (FP) PO SCH (11:46)
[2017-06-10] MEDS: PANTOPRAZOLE 40 MG TABLET (FP) PO SCH (11:46)
[2017-06-10] MEDS: OXYBUTYNIN CHLORIDE 5 MG TABLET PO SCH (11:46)
[2017-06-10] MEDS: ASPIRIN 81 MG CHEWABLE TABLETS PO SCH (11:46)
[2017-06-10] MEDS: SPIRONOLACTONE 25 MG TABLET (FP) PO SCH (11:47)
[2017-06-10] MEDS: CARVEDILOL 6.25 MG TABLET (FP) PO SCH (11:47)
[2017-06-10] MEDS: MULTIVITAMINS (DAILY MVI) TABLET (FP) PO SCH (11:47)
[2017-06-10] MEDS: ASCORBIC ACID 500 MG TABLET (FP) PO SCH (11:47)
[2017-06-10] MEDS: LACTOBACILLUS ACIDOPHILUS 1 EACH TAB (FP) PO SCH ×2 (11:47→22:08)
[2017-06-10] MEDS: CHOLECALCIFEROL (VITAMIN D3) 1,000 UNIT TABLET (FP) PO SCH (11:47)
[2017-06-10] MEDS: SENNOSIDES 8.6MG TABLET (FP) PO SCH (11:47)
[2017-06-10] MEDS: CEFTRIAXONE 1 GM in DEXTROSE 5%-WATER - 50 ML IVPB SCH ×2 (11:47→15:51)
--- NOTE | 2017-06-10 15:13 | PN ---
Progress Note, Physician History of Present Illness: Pt w/o fever, chills, SOB, CP, palp, abd pain, diarrhea. - Current Medication List Current Medications: Active Medications Acetaminophen (Tylenol -) 650 mg PO Q6H PRN PRN Reason: FEVER OR PAIN Ascorbic Acid (Vitamin C -) 500 mg PO DAILY [facility] Last Admin: 06/10/17 11:47 Dose: 500 mg Aspirin (Asa -) 81 mg PO DAILY [facility] Last Admin: 06/10/17 11:46 Dose: 81 mg Carvedilol (Coreg -) 6.25 mg PO DAILY [facility] Last Admin: 06/10/17 11:47 Dose: 6.25 mg Cholecalciferol (Vitamin D3 -) 1,000 unit PO DAILY [facility] Last Admin: 06/10/17 11:47 Dose: 1,000 unit Docusate Sodium (Colace Liquid -) 150 mg PO DAILY [facility] Last Admin: 06/10/17 11:46 Dose: 150 mg Ceftriaxone Sodium 1 gm/ (Dextrose) 50 mls @ 100 mls/hr IVPB DAILY [facility] Lactobacillus Acidophilus (Bacid -) 1 tab PO BID [facility] Last Admin: 06/10/17 11:47 Dose: 1 tab Multivitamins/Minerals/Vitamin C (Tab-A-Vit -) 1 tab PO DAILY [facility] Last Admin: 06/10/17 11:47 Dose: 1 tab Oxybutynin Chloride (Ditropan -) 5 mg PO DAILY [facility] Last Admin: 06/10/17 11:46 Dose: 5 mg Pantoprazole Sodium (Protonix -) 40 mg PO DAILY [facility] Last Admin: 06/10/17 11:46 Dose: 40 mg Rosuvastatin Calcium (Crestor -) 5 mg PO [facility] Last Admin: 06/09/17 23:49 Dose: 5 mg Senna (Senna -) 1 tab PO DAILY [facility] Last Admin: 06/10/17 11:47 Dose: 1 tab Simethicone (Mylicon -) 80 mg PO DAILY [facility] Last Admin: 06/10/17 11:46 Dose: 80 mg Spironolactone (Aldactone -) 25 mg PO DAILY [facility] Last Admin: 06/10/17 11:47 Dose: 25 mg Warfarin Sodium (Coumadin -) 4 mg PO TuThSa@1800 [facility] Last Admin: 06/09/17 17:40 Dose: 4 mg Warfarin Sodium (Coumadin -) 6 mg PO SuMoWeFr@1800 [facility] Last Admin: 06/08/17 18:25 Dose: 6 mg - Objective Vital Signs: Vital Signs Temperature 97.7 F 06/10/17 06:17 Pulse Rate 75 06/10/17 06:17 Respiratory Rate 20 06/10/17 06:17 Blood Pressure 119/67 06/10/17 06:17 O2 Sat by Pulse Oximetry (%) 98 06/09/17 21:00 Constitutional: Yes: No Distress, Calm Cardiovascular: Yes: Regular Rate and Rhythm, S1, S2 Respiratory: Yes: Regular, CTA Bilaterally. No: Rales Gastrointestinal: Yes: Normal Bowel Sounds, Soft. No: Tenderness Edema: No Labs: CBC, BMP 06/10/17 06:45 06/10/17 06:45 INR, PTT INR 2.09 (0.82-1.09) H 06/10/17 06:45 Problem List - Problems (1) UTI (urinary tract infection) Code(s): N39.0 - URINARY TRACT INFECTION, SITE NOT SPECIFIED Qualifiers: Indwelling urinary catheter type: unspecified (2) Sepsis Code(s): A41.9 - SEPSIS, UNSPECIFIED ORGANISM (3) Atrial fibrillation Code(s): I48.91 - UNSPECIFIED ATRIAL FIBRILLATION (4) Supratherapeutic INR Code(s): R79.1 - ABNORMAL COAGULATION PROFILE (5) Hypertension Code(s): I10 - ESSENTIAL (PRIMARY) HYPERTENSION (6) Subtherapeutic anticoagulation Code(s): Z51.81 - ENCOUNTER FOR THERAPEUTIC DRUG LEVEL MONITORING Z79.01 - 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 F/u INR; today within 2-3 range Encourage PO fluids AM labs PT
[2017-06-10] MEDS ORDERED: cefTRIAXone SODIUM 1 GM VIAL ONE (15:48)
[2017-06-10] MEDS ORDERED: DEXTROSE 5%-WATER - 50 ML IVPB ONE (15:49)
--- NOTE | 2017-06-10 16:20 | PN ---
Progress Note, Physician History of Present Illness: More awake and alert No complaints No dysuria Afebrile WBC improved - Current Medication List Current Medications: Active Medications Acetaminophen (Tylenol -) 650 mg PO Q6H PRN PRN Reason: FEVER OR PAIN Ascorbic Acid (Vitamin C -) 500 mg PO DAILY [facility] Last Admin: 06/10/17 11:47 Dose: 500 mg Aspirin (Asa -) 81 mg PO DAILY [facility] Last Admin: 06/10/17 11:46 Dose: 81 mg Carvedilol (Coreg -) 6.25 mg PO DAILY [facility] Last Admin: 06/10/17 11:47 Dose: 6.25 mg Cholecalciferol (Vitamin D3 -) 1,000 unit PO DAILY [facility] Last Admin: 06/10/17 11:47 Dose: 1,000 unit Docusate Sodium (Colace Liquid -) 150 mg PO DAILY [facility] Last Admin: 06/10/17 11:46 Dose: 150 mg Ceftriaxone Sodium 1 gm/ (Dextrose) 50 mls @ 100 mls/hr IVPB DAILY [facility] Last Admin: 06/10/17 15:51 Dose: 100 mls/hr Lactobacillus Acidophilus (Bacid -) 1 tab PO BID [facility] Last Admin: 06/10/17 11:47 Dose: 1 tab Multivitamins/Minerals/Vitamin C (Tab-A-Vit -) 1 tab PO DAILY [facility] Last Admin: 06/10/17 11:47 Dose: 1 tab Oxybutynin Chloride (Ditropan -) 5 mg PO DAILY [facility] Last Admin: 06/10/17 11:46 Dose: 5 mg Pantoprazole Sodium (Protonix -) 40 mg PO DAILY [facility] Last Admin: 06/10/17 11:46 Dose: 40 mg Rosuvastatin Calcium (Crestor -) 5 mg PO HS [facility] Last Admin: 06/09/17 23:49 Dose: 5 mg Senna (Senna -) 1 tab PO DAILY [facility] Last Admin: 06/10/17 11:47 Dose: 1 tab Simethicone (Mylicon -) 80 mg PO DAILY [facility] Last Admin: 06/10/17 11:46 Dose: 80 mg Spironolactone (Aldactone -) 25 mg PO DAILY [facility] Last Admin: 06/10/17 11:47 Dose: 25 mg Warfarin Sodium (Coumadin -) 4 mg PO [email or web address] [facility] Last Admin: 06/09/17 17:40 Dose: 4 mg Warfarin Sodium (Coumadin -) 6 mg PO [email or web address] [email or web address] Last Admin: 06/08/17 18:25 Dose: 6 mg - Objective Vital Signs: Vital Signs Temperature 96.8 F L 06/10/17 13:51 Pulse Rate 71 06/10/17 13:51 Respiratory Rate 20 06/10/17 13:51 Blood Pressure 111/66 06/10/17 13:51 O2 Sat by Pulse Oximetry (%) 98 06/09/17 21:00 Constitutional: Yes: No Distress Eyes: Yes: Conjunctiva Clear Cardiovascular: Yes: Regular Rate and Rhythm, S1, S2 Respiratory: Yes: Diminished Gastrointestinal: Yes: Normal Bowel Sounds, Soft. No: Tenderness Edema: Yes Labs: CBC, BMP 06/10/17 06:45 06/10/17 06:45 INR, PTT INR 2.09 (0.82-1.09) H 06/10/17 06:45 Assessment/Plan UTI Leukocytosis- improved Continue ceftriaxone Switch to po am
[2017-06-10] MEDS: WARFARIN NA 3 MG TABLET PO SCH (18:22)
[2017-06-10] MEDS: ROSUVASTATIN CA 5 MG TABLET (FP) PO SCH (22:08)
[2017-06-11 08:02] LABS: MCH 30.6 pg (25.7-33.7); MCHC 33.4 g/dl (32.0-36.0); MEAN CELL VOLUME 91.6 fl (80-96); MEAN PLT VOLUME 6.8 fl (7.5-11.1); PLATELET COUNT 342 K/MM3 (134-434); RDW 13.1 % (11.6-15.6); WHITE BLOOD COUNT 11.8 K/mm3 (4.0-10.0)
[2017-06-11 08:08] LABS: INR 2.52 (0.82-1.09); PROTHROMBIN TIME (PATIENT) 28.3 SEC (9.98-11.88)
--- NOTE | 2017-06-11 09:18 | PN ---
Progress Note, Physician Chief Complaint: ID Day 5 antibiotics Asymptomatic - Current Medication List Current Medications: Active Medications Acetaminophen (Tylenol -) 650 mg PO Q6H PRN PRN Reason: FEVER OR PAIN Ascorbic Acid (Vitamin C -) 500 mg PO DAILY [facility] Last Admin: 06/10/17 11:47 Dose: 500 mg Aspirin (Asa -) 81 mg PO DAILY [facility] Last Admin: 06/10/17 11:46 Dose: 81 mg Carvedilol (Coreg -) 6.25 mg PO DAILY [facility] Last Admin: 06/10/17 11:47 Dose: 6.25 mg Cholecalciferol (Vitamin D3 -) 1,000 unit PO DAILY [facility] Last Admin: 06/10/17 11:47 Dose: 1,000 unit Docusate Sodium (Colace Liquid -) 150 mg PO DAILY [facility] Last Admin: 06/10/17 11:46 Dose: 150 mg Ceftriaxone Sodium 1 gm/ (Dextrose) 50 mls @ 100 mls/hr IVPB DAILY [facility] Last Admin: 06/10/17 15:51 Dose: 100 mls/hr Lactobacillus Acidophilus (Bacid -) 1 tab PO BID [facility] Last Admin: 06/10/17 22:08 Dose: 1 tab Multivitamins/Minerals/Vitamin C (Tab-A-Vit -) 1 tab PO DAILY [facility] Last Admin: 06/10/17 11:47 Dose: 1 tab Oxybutynin Chloride (Ditropan -) 5 mg PO DAILY [facility] Last Admin: 06/10/17 11:46 Dose: 5 mg Pantoprazole Sodium (Protonix -) 40 mg PO DAILY [facility] Last Admin: 06/10/17 11:46 Dose: 40 mg Rosuvastatin Calcium (Crestor -) 5 mg PO [facility] Last Admin: 06/10/17 22:08 Dose: 5 mg Senna (Senna -) 1 tab PO DAILY [facility] Last Admin: 06/10/17 11:47 Dose: 1 tab Simethicone (Mylicon -) 80 mg PO DAILY [facility] Last Admin: 06/10/17 11:46 Dose: 80 mg Spironolactone (Aldactone -) 25 mg PO DAILY [facility] Last Admin: 06/10/17 11:47 Dose: 25 mg Warfarin Sodium (Coumadin -) 4 mg PO TuThSa@1800 [facility] Last Admin: 06/09/17 17:40 Dose: 4 mg Warfarin Sodium (Coumadin -) 6 mg PO SuMoWeFr@1800 [facility] Last Admin: 06/10/17 18:22 Dose: 6 mg - Objective Vital Signs: Vital Signs Temperature 98 F 06/11/17 07:51 Pulse Rate 67 06/11/17 07:51 Respiratory Rate 20 06/11/17 07:51 Blood Pressure 110/59 06/11/17 07:51 O2 Sat by Pulse Oximetry (%) 97 06/10/17 22:00 Constitutional: Yes: No Distress Neck: Yes: WNL, Supple Cardiovascular: Yes: Regular Rate and Rhythm, S1, S2 Respiratory: Yes: WNL, Regular, CTA Bilaterally Gastrointestinal: Yes: WNL, Normal Bowel Sounds, Soft Edema: No Labs: CBC, BMP 06/11/17 07:15 06/10/17 06:45 INR, PTT INR 2.52 (0.82-1.09) H 06/11/17 07:15 Problem List - Problems (1) Fever Code(s): R50.9 - FEVER, UNSPECIFIED Assessment/Plan Microbiology 06/06/17 20:40 Urine - Urine - Catheterized Urine Culture - Final Escherichia Coli 06/06/17 20:40 Blood - Peripheral Venous Blood Culture - Preliminary NO GROWTH OBTAINED AFTER 96 HOURS, INCUBATION TO CONTINUE FOR 1 DAYS. 06/06/17 18:50 Blood - Peripheral Venous Blood Culture - Preliminary NO GROWTH OBTAINED AFTER 96 HOURS, INCUBATION TO CONTINUE FOR 1 DAYS. Laboratory Tests 06/06/17 06/10/17 06/11/17 20:40 06:45 07:15 WBC 11.8 H Hgb 12.0 Hct 35.9 Plt Count 342 BUN 31 H Creatinine 1.4 H Urine WBC 576 Assessment UTI ? Pyleonephritis with sensitive GNB E Coli Plan Stop IV antibiotic Keflex 500mg bid for 5 days Carmen ALEJO
[2017-06-11] MEDS ORDERED: cefTRIAXone SODIUM 1 GM VIAL ONE (10:22)
[2017-06-11] MEDS ORDERED: DEXTROSE 5%-WATER - 50 ML IVPB ONE (10:22)
[2017-06-11] MEDS: ASCORBIC ACID 500 MG TABLET (FP) PO SCH (10:35)
[2017-06-11] MEDS: CHOLECALCIFEROL (VITAMIN D3) 1,000 UNIT TABLET (FP) PO SCH (10:36)
[2017-06-11] MEDS: MULTIVITAMINS (DAILY MVI) TABLET (FP) PO SCH (10:36)
[2017-06-11] MEDS: SPIRONOLACTONE 25 MG TABLET (FP) PO SCH (10:36)
[2017-06-11] MEDS: SENNOSIDES 8.6MG TABLET (FP) PO SCH (10:36)
[2017-06-11] MEDS: OXYBUTYNIN CHLORIDE 5 MG TABLET PO SCH (10:36)
[2017-06-11] MEDS: ASPIRIN 81 MG CHEWABLE TABLETS PO SCH (10:36)
[2017-06-11] MEDS: PANTOPRAZOLE 40 MG TABLET (FP) PO SCH (10:36)
[2017-06-11] MEDS: CARVEDILOL 6.25 MG TABLET (FP) PO SCH (10:36)
[2017-06-11] MEDS: LACTOBACILLUS ACIDOPHILUS 1 EACH TAB (FP) PO SCH (10:36)
[2017-06-11] MEDS: DOCUSATE NA 100 MG/10 ML UNIT-DOSE CUPS PO SCH (10:37)
[2017-06-11] MEDS: SIMETHICONE 80 MG TAB.CHEW (FP) PO SCH (10:37)
[2017-06-11] MEDS: CEFTRIAXONE 1 GM in DEXTROSE 5%-WATER - 50 ML IVPB SCH (10:37)
--- NOTE | 2017-06-11 15:16 | DS ---
Physical Examination Vital Signs: Vital Signs Temperature 98.4 F 06/11/17 09:00 Pulse Rate 68 06/11/17 09:00 Respiratory Rate 16 06/11/17 09:00 Blood Pressure 112/58 06/11/17 09:00 O2 Sat by Pulse Oximetry (%) 97 06/10/17 22:00 Findings/Remarks: Pt w/o fever, chills, SOB, CP, palp, abd pain. Constitutional: Yes: No Distress, Calm Cardiovascular: Yes: Regular Rate and Rhythm, S1, S2 Respiratory: Yes: Regular, CTA Bilaterally. No: Rales Gastrointestinal: Yes: Normal Bowel Sounds, Soft. No: Palpable Mass, Tenderness Edema: No Neurological: Yes: Alert, Oriented Labs: CBC, BMP 06/11/17 07:15 06/10/17 06:45 Discharge Summary Reason For Visit: URINARY TRACT INFECTION Current Active Problems Atrial fibrillation (Acute) Fever (Acute) Hypertension (Acute) Sepsis (Acute) Subtherapeutic anticoagulation (Acute) Supratherapeutic INR (Acute) UTI (urinary tract infection) (Acute) Procedures: Principal: Abd/ Pelvis CT scan Hospital Course: Pt was sent from [facility] with Sepsis (WBC of 27 K, fever 103.0), UTI; in [facility] it was noticed to haveelevated INR . Pt was admitted and started on IV abtx, seen by ID. Pt's UCX came back + for E Coli. Pt improved with atbx. Pt to be DC' ed back to [place] on PO abtx. Condition: Improved - Instructions Diet, Activity, Other Instructions: Resume DIET INR in AM Referrals: Armando Pierce MD [Primary Care Provider] - Disposition: LONG TERM FACILITY - Home Medications Comprehensive Discharge Medication List: Ambulatory Orders this list might NOT be accurate Acetaminophen [Tylenol] 975 mg PO QID PRN 06/06/17 Ascorbate Calcium [Vitamin C] 500 mg PO DAILY 06/06/17 Aspirin [ASA -] 81 mg PO DAILY 06/06/17 Carvedilol 6.25 mg PO DAILY 06/06/17 Cholecalciferol (Vitamin D3) [Vitamin D3] 1,000 unit PO DAILY 06/06/17 Docusate Liquid [Colace Liquid -] 150 mg PO DAILY 06/06/17 Lactobacillus Acidophilus [Bacid -] 1 each PO BID 06/06/17 Multivitamins [Tab-A-Vit -] 1 tab PO DAILY 06/06/17 Oxybutynin Chloride 5 mg PO DAILY 06/06/17 Pantoprazole Sodium 40 mg PO DAILY 06/06/17 Rosuvastatin [Crestor -] 5 mg PO HS 06/06/17 Sennosides [Senna] 8.6 mg PO DAILY 06/06/17 Simethicone 80 mg PO DAILY 06/06/17 Spironolactone 25 mg PO DAILY 06/06/17 Warfarin Sodium [Coumadin] 6 mg PO ASDIR 06/06/17 Coumadin 4 mg PO ASDIR 06/07/17
[2017-06-11 15:47] VITALS: BP 88/51; PULSE 77; TEMP 97.9
[2017-06-11] MEDS: WARFARIN NA 3 MG TABLET PO SCH (17:10)
[2017-06-12] MEDS ORDERED: CEPHALEXIN MONOHYDRATE 500 MG CAPSULE (UD) PO SCH (10:00)
== END 2017-06-11 17:52 | DRG 872 ==
LOC: JER 18:01 → JERBED 22:12 → J8W 06-07
PROVIDERS: ADMIT Specialist; ATTEND Specialist
DX: A41.9 Sepsis, unspecified organism (principal); I10 Essential (primary) hypertension; E78.5 Hyperlipidemia, unspecified; I48.91 Unspecified atrial fibrillation; R13.19 Other dysphagia; K20.8 Other esophagitis; R00.0 Tachycardia, unspecified; R79.1 Abnormal coagulation profile; I44.0 Atrioventricular block, first degree; I25.10 Atherosclerotic heart disease of native coronary artery without angina pectoris; D72.828 Other elevated white blood cell count; B96.29 Other Escherichia coli [E. coli] as the cause of diseases classified elsewhere; Z95.1 Presence of aortocoronary bypass graft; Z79.01 Long term (current) use of anticoagulants; Z51.81 Encounter for therapeutic drug level monitoring; Z95.2 Presence of prosthetic heart valve
CPT/HCPCS: 36415; 71010-TC; 74176-TC; 80048; 80053; 81003; 81015; 82553; 82803; 83605; 84484; 85025; 85027; 85610; 85651; 85730; 86140; 86850; 86900; 86901; 87040; 87086; 87186; 93005; 93010; 97116-GP; 97162-GP; 99284-25

== ENCOUNTER 2019-03-11 13:05 | Inpatient (IN) | payer OTHER ==
--- NOTE | 2019-03-11 14:21 | PDOC ---
History of Present Illness - General Chief Complaint: Coffee Ground Emesis Stated Complaint: GI BLEEDING Time Seen by Provider: 03/11/19 13:51 - History of Present Illness Initial Comments: 03/11/19 14:18 88F from [facility] with pmh of a-fib on coumadin (stopped yesterday), heart failure, HTN. HLD, dysphagiaaortic valve replacement, double bypass at [facility] [place] in 2004, presents to the ED for coffee-ground emesis this morning. Patient is currently asymptomatic. CODE: DNR/DNI PCP: MISAEL Past History - Past Medical History Allergies/Adverse Reactions: Allergies Allergy/AdvReac Type Severity Reaction Status Date / Time No Known Allergies Allergy Verified 03/11/19 13:10 Home Medications: Ambulatory Orders Acetaminophen [Tylenol] 650 mg PO QID PRN 03/11/19 Ascorbic Acid [Vitamin C] 500 mg PO DAILY 03/11/19 Aspirin 81 mg PO DAILY 03/11/19 Carvedilol [Coreg] 6.25 mg PO BID 03/11/19 Cholecalciferol (Vitamin D3) [Vitamin D3] 1,000 unit PO DAILY 03/11/19 Docusate Sodium [Colace] 100 mg PO HS 03/11/19 Multivitamins [Tab-A-Vit -] 1 tab PO DAILY 03/11/19 Oxybutynin Chloride [Ditropan Xl] 10 mg PO HS 03/11/19 Pantoprazole Sodium [Protonix] 40 mg PO DAILY 03/11/19 Rosuvastatin Calcium [Crestor] 5 mg PO HS 03/11/19 Sennosides [Senna] 8.6 mg PO HS 03/11/19 Simethicone Liquid [Mylicon] 40 mg PO QID PRN 03/11/19 Cardiac Disorders: Yes (a fib) COPD: No GI Disorders: Yes (dysphagia, esophagitis.) HTN: Yes Hypercholesterolemia: Yes - Surgical History Abdominal Surgery: Yes (gastronomy) Cardiac Surgery: Yes (Prostetic heart valve,aortic coronary bypasss graft) - Suicide/Smoking/Psychosocial Hx Smoking History: Never smoked Have you smoked in the past 12 months: No Hx Alcohol Use: No Drug/Substance Use Hx: No Substance Use Type: None Review of Systems - Review of Systems Able to Perform ROS?: Yes Constitutional: No: Symptoms Reported HEENTM: No: Symptoms Reported Respiratory: No: Symptoms reported Cardiac (ROS): No: Symptoms Reported ABD/GI: No: Symptoms Reported : No: Symptoms Reported Musculoskeletal: No: Symptoms Reported Integumentary: No: Symptoms Reported Neurological: No: Symptoms reported All Other Systems: Reviewed and Negative *Physical Exam - Vital Signs Last Vital Signs Temp Pulse Resp BP Pulse Ox 101.9 F H 110 H 18 120/57 L 96 03/11/19 14:12 03/11/19 13:53 03/11/19 13:06 03/11/19 13:06 03/11/19 13:06 - Physical Exam General Appearance: Yes: Appropriately Dressed, Obese. No: Apparent Distress HEENT: positive: EOMI, PAM, Normal ENT Inspection Respiratory/Chest: positive: Lungs Clear, Normal Breath Sounds. negative: Chest Tender, Respiratory Distress Cardiovascular: positive: Regular Rhythm, Regular Rate, S1, S2 Gastrointestinal/Abdominal: positive: Normal Bowel Sounds, Tender (suprapubic), Flat, Soft, Protuberent, Distended Musculoskeletal: positive: Normal Inspection. negative: CVA Tenderness Extremity: positive: Normal Capillary Refill, Normal Inspection, Normal Range of Motion Integumentary: positive: Ecchymosis, Bruising (over arms) Neurologic: positive: Other (pleasant but not aware why shes here, doesnt remember . ) ED Treatment Course - LABORATORY CBC & Chemistry Diagram: 03/11/19 14:15 03/11/19 14:15 Medical Decision Making - Medical Decision Making 03/11/19 16:54 No evidence of Gi bleed but will obtain guiaic and look for anemia in the cbc. Memory is good at baseline, patient is altered. Will look for evidence of infection with cxr and UA/UC and Ct abdomen non-contrast for the abdominal pain. creatinine of 2, higher than her normal, UTi presents in UA. Will treat with low dose Zosyn and vanco and admit to floor under Dr. Yi. Ct abdomen pending. *DC/Admit/Observation/Transfer Diagnosis at time of Disposition: Coffee ground emesis - Discharge Dispostion Decision to Admit order: Yes - Referrals - Patient Instructions - Post Discharge Activity
[2019-03-11] MEDS ORDERED: ACETAMINOPHEN 1000 MG/100 ML VIAL (NON FORMULARY) IVPB ONE (15:13)
[2019-03-11] MEDS ORDERED: ACETAMINOPHEN INJECTION 100 ML IVPB ONE (15:15)
[2019-03-11 15:18] LABS: BASO % 0.5 % (0-2.0); HEMATOCRIT 36.9 % (32.4-45.2); HEMOGLOBIN 12.1 GM/dL (10.7-15.3); LYMPH % 1.4 % (8-40); MCH 29.5 pg (25.7-33.7); MCHC 32.8 g/dl (32.0-36.0); MEAN CELL VOLUME 89.9 fl (80-96); MEAN PLT VOLUME 6.8 fl (7.5-11.1); MONO % 4.9 % (3.8-10.2); NEUT % 93.2 % (42.8-82.8); RDW 13.4 % (11.6-15.6); WHITE BLOOD COUNT 28.5 K/mm3 (4.0-10.0)
[2019-03-11 15:32] LABS: PLATELET COUNT 415 K/MM3 (134-434)
[2019-03-11 15:32] LABS: INR 1.84 (0.83-1.09); PROTHROMBIN TIME (PATIENT) 21.9 SEC (9.7-13.0)
[2019-03-11 15:34] LABS: ACTIVATED PTT 38.3 SECONDS (25.2-36.5)
[2019-03-11 15:39] LABS: ALBUMIN 3.1 g/dl (3.4-5.0); BILIRUBIN,TOTAL 0.9 mg/dL (0.2-1); BLOOD UREA NITROGEN 27.4 mg/dL (7-18); CALCIUM 9.2 mg/dL (8.5-10.1); POTASSIUM 4.5 mmol/L (3.5-5.1); TOT PROT 6.8 g/dl (6.4-8.2)
[2019-03-11 15:48] LABS: N-TERMINAL BNP 3214.7 pg/ml (5-450)
[2019-03-11] MEDS ORDERED: SODIUM CHLORIDE 1,000 ML IV STA (15:54)
[2019-03-11] MEDS ORDERED: PIPERACILLIN/TAZOB 2.25 GM 2.25 GM in DEXTROSE 5%-WATER - 50 ML IVPB ONE (15:59)
[2019-03-11] MEDS ORDERED: PANTOPRAZOLE SODIUM 40 MG VIAL IVPUSH ONE (16:02)
[2019-03-11] MEDS ORDERED: VANCOMYCIN 1 GM in D5W (PRE-DOCKED) 1,000 MG/250 ML IVPB ONE (16:02)
[2019-03-11] MEDS ORDERED: PIPERACILLIN/TAZOB 2.25 GM 2.25 GM/50 ML BAG IVPB ONE (16:03)
--- NOTE | 2019-03-11 16:03 | PDOC ---
Documentation entered by Jeri Burns SCRIBE, acting as scribe for Demario Castellanos MD. Demario Castellanos MD: This documentation has been prepared by the Grant myrick Brenda, SCRIBE, under my direction and personally reviewed by me in its entirety. I confirm that the documentation accurately reflects all work, treatment, procedures, and medical decision making performed by me. Attending Attestation - Resident Resident Name: Espinoza Bolton - ED Attending Attestation I have performed the following: I have examined & evaluated the patient, The case was reviewed & discussed with the resident, I agree w/resident's findings & plan, Exceptions are as noted - HPI HPI: 03/11/19 15:13 The patient is an 88 year old female with a significant past medical history of Dementia, Afib (on Coumadin discontinued yesterday s/p INR 5.5), heart failure, HTN, HLD, dysphagia, aortic valve replacement, double bypass ([facility] 2004) who presents to the emergency department from [facility] with coffee ground emesis this morning. Pt has no recollection but per [facility] report, pt had one episode of coffee grounds emesis. Pt denies any complaints currently. In ED, pt noted to be febrile to 101. Pt denies cough. Denies CP/SOB. Denies abdominal pain/N/V/D. Denies dysuria. Allergies: NKDA Social history: Denies prior history of tobacco, alcohol or recreational drugs. Surgical history: Gastronomy, prosthetic heart valve, aortic coronary bypass graft PCP: Dr. Demarcus Yi. - Physicial Exam PE: 03/11/19 14:04 GENERAL: Awake, alert, and fully oriented, in no acute distress. HEAD: No signs of trauma EYES: PERRLA, EOMI, sclera anicteric, conjunctiva clear ENT: Auricles normal inspection, hearing grossly normal, nares patent, oropharynx clear without exudates. Moist mucosa NECK: Nontender, no stepoffs, Normal ROM, supple, no lymphadenopathy, JVD, or masses LUNGS: Breath sounds equal, clear to auscultation bilaterally. No wheezes, and no crackles HEART: Regular rate and rhythm, normal S1 and S2, no murmurs, rubs or gallops ABDOMEN: + diffuse lower abdominal TTP, normoactive bowel sounds. No guarding, no rebound. No masses EXTREMITIES: Normal range of motion, no edema. No clubbing or cyanosis. No cords , erythema, or tenderness NEUROLOGICAL: Cranial nerves II through XII intact. 5/5 strength and sensation in all extremities, Normal speech, normal gait, normal cerebellar function SKIN: Warm, Dry, normal turgor, no rashes or lesions noted. - Medical Decision Making 03/11/19 16:00 88 F with possible coffee grounds emesis this morning, also found to be febrile in ED. Exam notable for lower abdominal tenderness. Possible UTI. Will also obtain CT abd/pelvis to r/o intraabdominal process. - Labs, UA, BCx - CXR - IVF, tylenol - PPI 03/11/19 16:11 Labs notable for WBC 28 as well as ROSE MARY with Cr 2.0 CTAP without contrast ordered Pt admitted to Dr. Yi 03/11/19 17:44 UA consistent with UTI Vanc/zosyn started
[2019-03-11] MEDS ORDERED: VANCOMYCIN 1 GRAM (PRE-DOCKED) 1,000 MG/250 ML BAG IVPB ONE (16:11)
[2019-03-11] MEDS ORDERED: PANTOPRAZOLE SODIUM 40 MG VIAL ONE (16:12)
[2019-03-11] MEDS ORDERED: ACETAMINOPHEN 325 MG TABLET (FP) PO PRN (16:34)
[2019-03-11] MEDS ORDERED: SIMETHICONE 40 MG/0.6 ML BOTTLE PO PRN (16:34)
--- NOTE | 2019-03-11 16:58 | EKG ---
Test Reason : Blood Pressure : / mmHG Vent. Rate : 080 BPM Atrial Rate : 080 BPM P-R Int : 194 ms QRS Dur : 116 ms QT Int : 402 ms P-R-T Axes : -28 005 043 degrees QTc Int : 463 ms POOR DATA QUALITY, INTERPRETATION MAY BE ADVERSELY AFFECTED NORMAL SINUS RHYTHM INCOMPLETE LEFT BUNDLE BRANCH BLOCK BORDERLINE ECG WHEN COMPARED WITH ECG OF 06-JUN-2017 18:41, NE INTERVAL HAS DECREASED INCOMPLETE LEFT BUNDLE BRANCH BLOCK HAS REPLACED NON-SPECIFIC INTRA-VENTRICULAR CONDUCTION BLOCK Confirmed by MD Gregorio, Yury ([id number]) on 03/11/2019 4:57:57 PM Referred By: Confirmed By:Yury Perkins MD
[2019-03-11 17:07] LABS: HYALINE CASTS 9 /lpf (0-8); URINE APPEARANCE TURBID; URINE BACTERIA 759.5 /hpf (NEGATIVE); URINE BILIRUBIN NEGATIVE (NEGATIVE); URINE COLOR YELLOW; URINE GLUCOSE (UA) NEGATIVE (NEGATIVE); URINE KETONE NEGATIVE (NEGATIVE); URINE LEUK ESTERASE 3+ (NEGATIVE); URINE NITRITE POSITIVE (NEGATIVE); URINE PROTEIN 1+ (NEGATIVE); URINE RBC 48 /hpf (0-4); URINE UROBILINOGEN 0.2 mg/dL (0.2-1.0); URINE WBC 735 /hpf (0-5)
--- NOTE | 2019-03-11 17:36 | CON.ID ---
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- she is unable to give any history- sent to ED for coffee ground emesis found to have fever 101.9 and leukocytosis of 28k she is waiting for ct scan abd/pelvis she denies cough, PURI, sore throat, chest pain, SOB, fever, or chills or nausea or vomiting reports a good appetite - History Source History Provided By: Patient, Medical Record Limitations to Obtaining History: Dementia - Past Medical History 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 Cardio/Vascular: Yes: AFIB (on AC), CAD, CHF, HTN, Hyperlipdemia Additional Medical History: bilateral leg fractures - Past Surgical History Past Surgical History: Yes: CABG, Valve Replacement - Alcohol/Substance Use Hx Alcohol Use: No - Smoking History Smoking history: Never smoked Have you smoked in the past 12 months: No - Social History Usual Living Arrangement: [facility]it[facility] ADL: Support Services 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 History of Recent Travel: No Home Medications - Allergies Allergies/Adverse Reactions: Allergies Allergy/AdvReac Type Severity Reaction Status Date / Time No Known Allergies Allergy Verified 03/11/19 13:10 - Home Medications Home Medications: Ambulatory Orders Acetaminophen [Tylenol] 650 mg PO QID PRN 03/11/19 Ascorbic Acid [Vitamin C] 500 mg PO DAILY 03/11/19 Aspirin 81 mg PO DAILY 03/11/19 Carvedilol [Coreg] 6.25 mg PO BID 03/11/19 Cholecalciferol (Vitamin D3) [Vitamin D3] 1,000 unit PO DAILY 03/11/19 Docusate Sodium [Colace] 100 mg PO HS 03/11/19 Multivitamins [Tab-A-Vit -] 1 tab PO DAILY 03/11/19 Oxybutynin Chloride [Ditropan Xl] 10 mg PO HS 03/11/19 Pantoprazole Sodium [Protonix] 40 mg PO DAILY 03/11/19 Rosuvastatin Calcium [Crestor] 5 mg PO HS 03/11/19 Sennosides [Senna] 8.6 mg PO HS 03/11/19 Simethicone Liquid [Mylicon] 40 mg PO QID PRN 03/11/19 Family Disease History - Family Disease History Family History: Unable to Obtain Review of Systems - Review of Systems Constitutional: reports: No Symptoms Eyes: reports: No Symptoms HENT: reports: No Symptoms Neck: reports: No Symptoms Cardiovascular: reports: No Symptoms Respiratory: reports: No Symptoms Gastrointestinal: reports: No Symptoms Genitourinary: reports: No Symptoms Breasts: reports: No Symptoms Reported Musculoskeletal: reports: No Symptoms Integumentary: reports: No Symptoms Physical Exam Vital Signs: Vital Signs Temperature 101.9 F H 03/11/19 14:12 Pulse Rate 107 H 03/11/19 17:29 Respiratory Rate 18 03/11/19 17:29 Blood Pressure 94/60 03/11/19 17:29 O2 Sat by Pulse Oximetry (%) 97 03/11/19 17:29 Constitutional: Yes: Well Nourished, No Distress, Calm Eyes: Yes: Conjunctiva Clear, EOM Intact HENT: No: Pharyngeal Erythema, Thrush, Tonsillar Exudate Neck: Yes: Supple, Trachea Midline Cardiovascular: Yes: Regular Rate and Rhythm Respiratory: Yes: Regular, CTA Bilaterally Gastrointestinal: Yes: Soft, Abdomen, Obese, Tenderness, Other (diffuse tenderness to palpation) ...Rectal Exam: Yes: Deferred Extremities: Yes: WNL, Other (multiple well healed scars on both legs, left ankle, right thigh, both knees- ?bilateral TKR) Edema: LLE: Trace, RLE: Trace Integumentary: Yes: Other (bruise right chest wall) Neurological: Yes: Alert Labs: CBC, BMP 03/11/19 14:15 03/11/19 14:15 Imaging - Results Chest X-ray: Report Reviewed, Image Reviewed Problem List - Problems (1) Sepsis Code(s): A41.9 - SEPSIS, UNSPECIFIED ORGANISM (2) Coffee ground emesis Code(s): K92.0 - HEMATEMESIS (3) ROSE MARY (acute kidney injury) Code(s): N17.9 - ACUTE KIDNEY FAILURE, UNSPECIFIED (4) UTI (urinary tract infection) Code(s): N39.0 - URINARY TRACT INFECTION, SITE NOT SPECIFIED Qualifiers: Indwelling urinary catheter type: unspecified (5) H/O aortic valve replacement Code(s): Z95.2 - PRESENCE OF PROSTHETIC HEART VALVE Assessment/Plan would agree with CT scan (pending) continue IV hydration continue vancomycin/zosyn -dosing adjusted for ROSE MARY overall prognosis is guarded
[2019-03-11 20:04] LABS: PLATELET ESTIMATE NORMAL
--- NOTE | 2019-03-11 20:29 | CON.GI ---
Consult Consult Specialty:: Gastroenterology Referred by:: Dr Yi Reason for Consultation:: Coffee ground emesis - History of Present Illness Chief Complaint: "Can't remember why I'm here" History of Present Illness: 88F severino was transferred from [facility] after a single episode of coffee ground emesis. Sister Ruby nor her Surgical Consultant Heike Marshall can elaborate. Sister Ruby denies abdominal pain. She has nausea after the CT contrast but no further vomiting. No melena reported. Sister denies any h/o GI bleeding. She tells me that she did have a colonoscopy remotely and that it was normal. She tells me that she has been moving her bowels well. She is on Coumadin for atrial fibrillation. No abdominal surgery. Sister Rolando tells me that Sr. Beltran had vaginal bleeding yesterday. 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: Dementia Cardio/Vascular: Yes: AFIB (on AC), Aortic Stenosis (s/p AVR [address] [place] [address]), CAD (s/p 2 vessel BABG [address] [place] [address]), CHF, HTN, Hyperlipdemia Hepatobiliary: Yes: Cholelithiasis Endocrine: Yes: Other (bilateral adrenal adenomas on CT) Additional Medical History: bilateral leg fractures - Past Surgical History Past Surgical History: Yes: CABG, Colonoscopy, Valve Replacement - Alcohol/Substance Use Hx Alcohol Use: No History of Substance Use: reports: None - Smoking History Smoking history: Never smoked Have you smoked in the past 12 months: No - Social History Usual Living Arrangement: Snf ADL: Support Services 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 Place of : [facility] History of Recent Travel: No Home Medications - Allergies Allergies/Adverse Reactions: Allergies Allergy/AdvReac Type Severity Reaction Status Date / Time No Known Allergies Allergy Verified 03/11/19 13:10 - Home Medications Home Medications: Ambulatory Orders Acetaminophen [Tylenol] 650 mg PO QID PRN 03/11/19 Ascorbic Acid [Vitamin C] 500 mg PO DAILY 03/11/19 Aspirin 81 mg PO DAILY 03/11/19 Carvedilol [Coreg] 6.25 mg PO BID 03/11/19 Cholecalciferol (Vitamin D3) [Vitamin D3] 1,000 unit PO DAILY 03/11/19 Docusate Sodium [Colace] 100 mg PO HS 03/11/19 Multivitamins [Tab-A-Vit -] 1 tab PO DAILY 03/11/19 Oxybutynin Chloride [Ditropan Xl] 10 mg PO HS 03/11/19 Pantoprazole Sodium [Protonix] 40 mg PO DAILY 03/11/19 Rosuvastatin Calcium [Crestor] 5 mg PO HS 03/11/19 Sennosides [Senna] 8.6 mg PO HS 03/11/19 Simethicone Liquid [Mylicon] 40 mg PO QID PRN 03/11/19 Family Disease History - Family Disease History Family Disease History: Other: Father ( 70 pneumonia), Mother ( 80 natural causes) Review of Systems - Review of Systems Constitutional: reports: Weakness Eyes: reports: No Symptoms HENT: reports: No Symptoms Neck: reports: No Symptoms Cardiovascular: reports: Shortness of Breath Respiratory: reports: Exercise Intolerance Gastrointestinal: reports: Nausea, Vomiting Genitourinary: reports: No Symptoms Musculoskeletal: reports: Joint Pain Physical Exam-GI Vital Signs: Vital Signs Temperature 97.7 F 03/11/19 18:02 Pulse Rate 72 03/11/19 19:28 Respiratory Rate 18 03/11/19 19:28 Blood Pressure 115/50 L 03/11/19 19:28 O2 Sat by Pulse Oximetry (%) 98 03/11/19 19:28 CBC,CMP WBC 28.5 K/mm3 (4.0-10.0) H 03/11/19 14:15 RBC 4.10 M/mm3 (3.60-5.2) 03/11/19 14:15 Hgb 12.1 GM/dL (10.7-15.3) 03/11/19 14:15 Hct 36.9 % (32.4-45.2) 03/11/19 14:15 MCV 89.9 fl (80-96) 03/11/19 14:15 MCH 29.5 pg (25.7-33.7) 03/11/19 14:15 MCHC 32.8 g/dl (32.0-36.0) 03/11/19 14:15 RDW 13.4 % (11.6-15.6) 03/11/19 14:15 Plt Count 415 K/MM3 (134-434) D 03/11/19 14:15 MPV 6.8 fl (7.5-11.1) L 03/11/19 14:15 Absolute Neuts (auto) 26.6 K/mm3 (1.5-8.0) H 03/11/19 14:15 Neutrophils % 93.2 % (42.8-82.8) H 03/11/19 14:15 Neutrophils % (Manual) 88.0 % (42.8-82.8) H 03/11/19 14:15 Band Neutrophils % 5.0 % 03/11/19 14:15 Lymphocytes % 1.4 % (8-40) L D 03/11/19 14:15 Lymphocytes % (Manual) 2.0 % (8-40) L 03/11/19 14:15 Monocytes % 4.9 % (3.8-10.2) 03/11/19 14:15 Monocytes % (Manual) 5 % (3.8-10.2) 03/11/19 14:15 Eosinophils % 0.0 % (0-4.5) D 03/11/19 14:15 Basophils % 0.5 % (0-2.0) 03/11/19 14:15 Nucleated RBC % 0 % (0-0) 03/11/19 14:15 Platelet Estimate Normal 03/11/19 14:15 Sodium 129 mmol/L (136-145) L 03/11/19 14:15 Potassium 4.5 mmol/L (3.5-5.1) 03/11/19 14:15 Chloride 94 mmol/L (98-107) L 03/11/19 14:15 Carbon Dioxide 27 mmol/L (21-32) 03/11/19 14:15 Anion Gap 7 MMOL/L (8-16) L 03/11/19 14:15 BUN 27.4 mg/dL (7-18) H 03/11/19 14:15 Creatinine 2.0 mg/dL (0.55-1.3) H 03/11/19 14:15 Est GFR (CKD-EPI)AfAm 25.55 03/11/19 14:15 Est GFR (CKD-EPI)NonAf 22.05 03/11/19 14:15 Random Glucose 100 mg/dL (74-106) 03/11/19 14:15 Calcium 9.2 mg/dL (8.5-10.1) 03/11/19 14:15 Total Bilirubin 0.9 mg/dL (0.2-1) 03/11/19 14:15 AST 18 U/L (15-37) 03/11/19 14:15 ALT 14 U/L (13-61) 03/11/19 14:15 Alkaline Phosphatase 115 U/L (45-117) 03/11/19 14:15 Troponin I < 0.02 ng/ml (0.00-0.05) 03/11/19 14:15 B-Natriuretic Peptide 3214.7 pg/ml (5-450) H 03/11/19 14:15 Total Protein 6.8 g/dl (6.4-8.2) 03/11/19 14:15 Albumin 3.1 g/dl (3.4-5.0) L 03/11/19 14:15 Constitutional: Yes: Anxious Eyes: Yes: Conjunctiva Clear HENT: Yes: Atraumatic Neck: Yes: Trachea Midline Cardiovascular: Yes: Pulse Irregular, Murmur (2/6 nonmetallic murmur) Respiratory: Yes: CTA Bilaterally Gastrointestinal Inspection: Yes: Distention ...Auscultate: Yes: Hypoactive Bowel Sounds ...Palpate: Yes: Soft, Other (nontender) ...Rectal Exam: Yes: Guaiac Negative (brown guaiac negative stool) Neurological: Yes: Alert, Other (forgetful) Labs: CBC, BMP 03/11/19 14:15 03/11/19 14:15 INR, PTT INR 1.84 (0.83-1.09) H 03/11/19 14:12 Imaging - Results Cat Scan: Report Reviewed ( Final Report CT ABDOMEN & PELVIS CT W/O CONTR Show Printer-Friendly Version Patient Name: Ruby Tejada : Oct-1930 ID: [id number] Study Date: 11-Mar-2019 18:11 Krishnanacho Laws Name: SR. RUBY TEJADA DEPARTMENT OF RADIOLOGY Phys: Espinoza Bolton RESIDENT : 1930 Age: 88 Sex: F [facility] Acct: [id number] Loc: [address] Exam Date: 03/11/19 Status: ADM IN [place] [id number] Unit Number: [id number] EXAM#: TYPE/EXAM: RESULT: CT/ ABDOMEN PELVIS CT W/O CONTR CT/CHEST CT WITHOUT CONTRAST CHEST CT without contrast Clinical information given: bleed, hypotension Multiplanar imaging was performed. As requested intravenous contrast was not administered. No prior chest CT studies are available at this facility for direct comparison. There is no evidence of infiltrate, pneumothorax or pleural fluid. Minimal to mild bibasilar linear scarring is seen without definite interval change in comparison to an abdomen/pelvic CT study of 2016 which also partially imaged the lower chest. No definite cardiac enlargement is seen. Atherosclerotic coronary artery calcifications are visualized. There is no pericardial effusion. There No obvious thoracic lymphadenopathy is noted on noncontrast imaging. There is no aortic aneurysm. An approximately 6 x 4 cm fluid collection is seen within the right breast. Multiple healed right rib fractures are noted laterally. IMPRESSION: No definite CT findings of acute intrathoracic pathology are noted. Right breast fluid collection as discussed above. Status post median sternotomy. ABDOMEN AND PELVIS CT without contrast Clinical information given: abdominal pain Multiplanar imaging was performed. As requested no intravenous or enteric contrast was administered. No evidence of pneumoperitoneum, free intraperitoneal fluid or bowel obstruction. In comparison to a prior CT study of 06/06/2017 appears to be interval development of a nonspecific approximately 6.4 x 3.7 cm right adnexal isodense structure abutting the lateral border of the uterine body. A small calcified uterine leiomyoma is again noted posteriorly Cholelithiasis is noted without CT evidence of acute cholecystitis. There is no definite biliary tract dilatation. Small stable bilateral adrenal adenomas. Stable minimal to mild dilatation of the left renal collecting system and left ureter is noted to the level of the lower pelvis. The lower pelvis is partially obscured due to artifact arising from a left hip prosthesis. The appendix cannot be definitely visualized. No obvious indirect CT signs of acute appendicitis are noted. Sigmoid diverticulosis is seen without evidence of acute diverticulitis. No gross noncontrast small bowel pathology is identified. The liver, spleen , pancreas, adrenal glands and right kidney demonstrate no obvious noncontrast pathology. There is no aortic aneurysm. No obvious lymphadenopathy is identified. The visualized osseous structures demonstrate no gross CT evidence of acute pathology. IMPRESSION: In comparison to a 2017 CT exam there appears to be interval development of a 6.7 x 3.4 cm nonspecific right adnexal soft tissue structure. Confirmation and further evaluation utilizing follow-up CT utilizing intravenous and oral contrast is suggested. Alternatively MRI evaluation may be performed. The remainder of the exam appears unchanged. Cholelithiasis. Small stable bilateral adrenal adenomas. Stable minimal to mild dilatation of the left renal collecting system and left ureter. Reported By: Gagandeep Reilly MD 03/11/191936 Technologist: Fan Miller Transcribed Date/Time: 03/11/191936 Tilesetter: Gagandeep Reilly Printed Date/Time: By: Signed by: Gagandeep Reilly Signed on: 11-Mar-2019 19:38) Problem List - Problems (1) Hx of CABG Code(s): Z95.1 - PRESENCE OF AORTOCORONARY BYPASS GRAFT (2) Cholelithiasis Code(s): K80.20 - CALCULUS OF GALLBLADDER W/O CHOLECYSTITIS W/O OBSTRUCTION (3) Adrenal adenoma Code(s): D35.00 - BENIGN NEOPLASM OF UNSPECIFIED ADRENAL GLAND (4) Pelvic mass Code(s): R19.00 - INTRA-ABD AND PELVIC SWELLING, MASS AND LUMP, UNSP SITE (5) Leiomyoma of body of uterus Code(s): D25.9 - LEIOMYOMA OF UTERUS, UNSPECIFIED (6) Vaginal bleeding Code(s): N93.9 - ABNORMAL UTERINE AND VAGINAL BLEEDING, UNSPECIFIED (7) Hyponatremia Code(s): E87.1 - HYPO-OSMOLALITY AND HYPONATREMIA (8) ROSE MARY (acute kidney injury) Code(s): N17.9 - ACUTE KIDNEY FAILURE, UNSPECIFIED (9) Coffee ground emesis Assessment/Plan: Suspect that the coffee ground emesis was stagnant small bowel content rather than hemorrhage given the relatively normal Hb and lack of repeated hematemesis or melena. Will nevetheless empirically start PPI drip. Suspect that the vomiting is a sympathetic response to a UTI or urosepsis given her positive urinalysis, fever and leukocytosis. I discussed the possible need for an EGD is true bleeding ensues with Sr Trotter and Sister Rolando. I informed then of the potential for such adverse reactions as perforation and hemorrhage. Sister Rolando had me also informed the order's nurse. They are inclined to stick with conservative management for the present. Code(s): K92.0 - HEMATEMESIS (10) H/O aortic valve replacement Assessment/Plan: Given her fever and increased WBC will order echocardiogram to exclude endocarditis Code(s): Z95.2 - PRESENCE OF PROSTHETIC HEART VALVE (11) Atrial fibrillation Code(s): I48.91 - UNSPECIFIED ATRIAL FIBRILLATION (12) UTI (urinary tract infection) Code(s): N39.0 - URINARY TRACT INFECTION, SITE NOT SPECIFIED Qualifiers: Indwelling urinary catheter type: unspecified Assessment/Plan Impression: - Suspect that the coffee ground emesis was stagnant small bowel contents rather than hemorrhage given the relatively normal Hb and lack of repeated hematemesis or melena. Suspect that the vomiting is a sympathetic response to a UTI or urosepsis given her positive urinalysis, fever and leukocytosis. - The LFTs and CT imaging suggest that the gallstones are clinically silent and not the source of fever at this point Plan: -- Will empirically start PPI drip. -- IV fluids for suspected prerenal azotemia. CT does not reveal hydronephrosis -- I discussed the possible need for an EGD if true bleeding ensues with Sr Trotter and Rolando. I informed then of the potential for such adverse reactions as perforation and hemorrhage. Sister Rolando had me also informed the order's nurse. They are inclined to stick with conservative management for the present. --Echocardiogram -- Can advance diet as tolerated -- Consider GARNETT ROOM WORKER Consultation for the vaginal bleeding and pelvic mass
[2019-03-11] MEDS ORDERED: PIPERACILLIN/TAZOBACTAM 2.25 GM VIAL IVPB ONE (21:06)
[2019-03-11] MEDS ORDERED: DEXTROSE 5%-WATER - 50 ML IVPB ONE (21:06)
[2019-03-11] MEDS: DEXTROSE 5%-NORMAL SALINE 1,000 ML IV SCH (21:08)
[2019-03-11] MEDS: SENNOSIDES 8.6MG TABLET (FP) PO SCH (22:19)
[2019-03-11] MEDS: DOCUSATE SODIUM 100 MG CAPSULE (FP) PO SCH (22:19)
[2019-03-11] MEDS: SOLIFENACIN SUCCINATE 5 MG TAB PO SCH (22:19)
[2019-03-11] MEDS: ROSUVASTATIN CA 5 MG TABLET (FP) PO SCH (22:19)
[2019-03-11] MEDS: CARVEDILOL 6.25 MG TABLET (FP) PO SCH (22:19)
[2019-03-11] MEDS: PIPERACILLIN/TAZOB 2.25 GM 2.25 GM in DEXTROSE 5%-WATER - 50 ML IVPB SCH (22:19)
[2019-03-11] MEDS: PANTOPRAZOLE SODIUM 80 MG in SODIUM CHLORIDE 100 ML IVPB SCH (22:20)
[2019-03-11 23:04] VITALS: BMI 35.1
--- NOTE | 2019-03-11 23:57 | HP ---
Admitting History and Physical - Primary Care Physician PCP: Armando Yi - Admission Chief Complaint: Coffee ground emesis History of Present Illness: Pt is a resident of [facility] that was noticed this AM ,by jail staff, to have coffee ground emesis. Pt was seen while in ER and had no complains; pt's health care coordinators are at the bedside. 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 Cardiovascular: Yes: AFIB (on AC), Aortic Stenosis (s/p AVR [address] [place] [address]), CAD (s/p 2 vessel BABG [address] [place] [address]), CHF, HTN, Hyperlipdemia Hepatobiliary: Yes: Cholelithiasis Reproductive: Yes: Other (Vaginal bleed, refused evaluation until this weekend) Endocrine: Yes: Other (bilateral adrenal adenomas on CT) - Past Surgical History Past Surgical History: Yes: CABG, Colonoscopy, Valve Replacement - Advance Directives Advance Directives: Yes: DNR - Smoking History Smoking history: Never smoked Have you smoked in the past 12 months: No - Alcohol/Substance Use Hx Alcohol Use: No History of Substance Use: reports: None - Social History ADL: Support Services 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 History of Recent Travel: No Home Medications - Allergies Allergies/Adverse Reactions: Allergies Allergy/AdvReac Type Severity Reaction Status Date / Time No Known Allergies Allergy Verified 03/11/19 13:10 - Home Medications Home Medications: Ambulatory Orders Acetaminophen [Tylenol] 650 mg PO QID PRN 03/11/19 Ascorbic Acid [Vitamin C] 500 mg PO DAILY 03/11/19 Aspirin 81 mg PO DAILY 03/11/19 Carvedilol [Coreg] 6.25 mg PO BID 03/11/19 Cholecalciferol (Vitamin D3) [Vitamin D3] 1,000 unit PO DAILY 03/11/19 Docusate Sodium [Colace] 100 mg PO HS 03/11/19 Multivitamins [Tab-A-Vit -] 1 tab PO DAILY 03/11/19 Oxybutynin Chloride [Ditropan Xl] 10 mg PO HS 03/11/19 Pantoprazole Sodium [Protonix] 40 mg PO DAILY 03/11/19 Rosuvastatin Calcium [Crestor] 5 mg PO HS 03/11/19 Sennosides [Senna] 8.6 mg PO HS 03/11/19 Simethicone Liquid [Mylicon] 40 mg PO QID PRN 03/11/19 Family Disease History - Family Disease History Family Disease History: Other: Father ( 70 pneumonia), Mother ( 80 natural causes) Review of Systems - Review of Systems Constitutional: denies: Chills, Fever Eyes: denies: Blurred Vision, Double Vision HENT: denies: Difficult Swallowing, Ear Discharge, Ear Pain, Nasal Congestion, Throat Pain Neck: denies: Pain on Movement, Stiffness Cardiovascular: denies: Chest Pain, Edema, Palpitations Respiratory: denies: Cough, SOB, Wheezing Gastrointestinal: denies: Abdominal Pain, Diarrhea, Nausea, Vomiting Genitourinary: denies: Burning, Discharge, Dysuria, Flank Pain, Frequency Musculoskeletal: denies: Back Pain, Extremity Pain, Joint Swelling Integumentary: denies: Bruising, Rash Neurological: denies: Change in Speech, Confusion, Numbness, Weakness Endocrine: denies: Excessive Sweating, Intolerance to Cold Hematology/Lymphatic: denies: Easily Bruised, Excessive Bleeding Psychiatric: denies: Anxiety, Depression Physical Examination Vital Signs: Vital Signs Temperature 98 F 03/11/19 21:00 Pulse Rate 100 H 03/11/19 21:00 Respiratory Rate 18 03/11/19 21:00 Blood Pressure 125/79 03/11/19 21:00 O2 Sat by Pulse Oximetry (%) 98 03/11/19 19:28 Constitutional: Yes: No Distress, Calm Eyes: Yes: Conjunctiva Clear, EOM Intact HENT: No: Epistaxis, Pharyngeal Erythema, Rhinnorhea Neck: Yes: Trachea Midline. No: Lymphadenopathy Cardiovascular: Yes: Regular Rate and Rhythm, S1, S2 Respiratory: Yes: Regular, CTA Bilaterally. No: Rales Gastrointestinal: Yes: Normal Bowel Sounds, Soft. No: Tenderness ...Rectal Exam: Yes: Deferred, Guaiac Negative (per ER) Renal/: Yes: Vaginal Bleeding (per ER). No: Bladder Distention Breast(s): Yes: Other (deferred) Musculoskeletal: No: Joint Stiffness, Joint Swelling Extremities: No: Cold, Cool, Cyanosis Edema: No Integumentary: No: Bruising, Rash Neurological: Yes: Alert, Oriented (baselinemotor and sensory examination is symmetric and at baseline) Psychiatric: Yes: Alert, Oriented Labs: CBC, BMP 03/11/19 14:15 03/11/19 14:15 Imaging - Results Chest X-ray: Report Reviewed Problem List - Problems (1) Coffee ground emesis Code(s): K92.0 - HEMATEMESIS (2) Fever Code(s): R50.9 - FEVER, UNSPECIFIED (3) ROSE MARY (acute kidney injury) Code(s): N17.9 - ACUTE KIDNEY FAILURE, UNSPECIFIED (4) UTI (urinary tract infection) Code(s): N39.0 - URINARY TRACT INFECTION, SITE NOT SPECIFIED Qualifiers: Indwelling urinary catheter type: unspecified (5) Vaginal bleeding Code(s): N93.9 - ABNORMAL UTERINE AND VAGINAL BLEEDING, UNSPECIFIED (6) Atrial fibrillation Code(s): I48.91 - UNSPECIFIED ATRIAL FIBRILLATION (7) Supratherapeutic INR Code(s): R79.1 - ABNORMAL COAGULATION PROFILE (8) Hypertension Code(s): I10 - ESSENTIAL (PRIMARY) HYPERTENSION Assessment/Plan IVF IV abtx NPO except meds GI consult ID consult AM labs Coumadin AM labs Pt condition was d/w pt and pt's health coordinators, all questions were answered. Pt's condition was d/w pt's ER nurse (Andrew)
[2019-03-12] MEDS ORDERED: PIPERACILLIN/TAZOBACTAM 2.25 GM VIAL IVPB ONE ×4 (01:27→21:11)
[2019-03-12] MEDS ORDERED: DEXTROSE 5%-WATER - 50 ML IVPB ONE ×4 (01:28→21:11)
[2019-03-12] MEDS: PIPERACILLIN/TAZOB 2.25 GM 2.25 GM in DEXTROSE 5%-WATER - 50 ML IVPB SCH ×4 (02:53→21:22)
[2019-03-12 07:51] LABS: INR 1.88 (0.83-1.09); PROTHROMBIN TIME (PATIENT) 22.3 SEC (9.7-13.0)
[2019-03-12 08:22] LABS: BASO % 0.2 % (0-2.0); HEMATOCRIT 32.6 % (32.4-45.2); HEMOGLOBIN 10.7 GM/dL (10.7-15.3); MCH 29.6 pg (25.7-33.7); MCHC 32.7 g/dl (32.0-36.0); MEAN CELL VOLUME 90.4 fl (80-96); MEAN PLT VOLUME 7.1 fl (7.5-11.1); MONO % 1.7 % (3.8-10.2); NEUT % 97.1 % (42.8-82.8); RBC 3.61 M/mm3 (3.60-5.2); RDW 13.5 % (11.6-15.6)
[2019-03-12 08:43] LABS: ALBUMIN 2.5 g/dl (3.4-5.0); CALCIUM 8.6 mg/dL (8.5-10.1); POTASSIUM 3.7 mmol/L (3.5-5.1); TOT PROT 5.5 g/dl (6.4-8.2)
[2019-03-12] MEDS ORDERED: PT OWN MED DRAWER 7, Y5N ONE (08:56)
[2019-03-12] MEDS: PANTOPRAZOLE SODIUM 80 MG in SODIUM CHLORIDE 100 ML IVPB SCH (09:01)
[2019-03-12 09:41] LABS: ERYTHROCYTE SEDIMENTATION RATE 63 mm/hr (0-30)
[2019-03-12 09:54] LABS: ANISOCYTOSIS 1+; MACROCYTOSIS 0; PLATELET ESTIMATE INCREASED; WHITE BLOOD COUNT 30.4 K/mm3 (4.0-10.0)
[2019-03-12] MEDS: ASPIRIN 81 MG CHEWABLE TABLETS PO SCH (10:25)
[2019-03-12] MEDS: CARVEDILOL 6.25 MG TABLET (FP) PO SCH ×2 (10:25→21:22)
[2019-03-12] MEDS: ASCORBIC ACID 500 MG TABLET (FP) PO SCH (10:25)
[2019-03-12] MEDS: MULTIVITAMINS (DAILY MVI) TABLET (FP) PO SCH (10:25)
[2019-03-12 10:54] LABS: PLATELET COUNT 532 K/MM3 (134-434)
--- NOTE | 2019-03-12 11:48 | PN ---
Progress Note, Physician History of Present Illness: Pt w/o fever, chills, cg, SOB, N, V, abd pain, diarrhea, dysuria. Pt w/o CP, palpitations. - Current Medication List Current Medications: Active Medications Acetaminophen (Tylenol -) 650 mg PO Q6H PRN PRN Reason: PAIN Ascorbic Acid (Vitamin C -) 500 mg PO DAILY [facility] Last Admin: 03/12/19 10:25 Dose: 500 mg Aspirin (Asa -) 81 mg PO DAILY [facility] Last Admin: 03/12/19 10:25 Dose: 81 mg Carvedilol (Coreg -) 6.25 mg PO BID [facility] Last Admin: 03/12/19 10:25 Dose: 6.25 mg Docusate Sodium (Colace -) 100 mg PO HS [facility] Last Admin: 03/11/19 22:19 Dose: 100 mg Piperacillin Sod/Tazobactam (Sod 2.25 gm/ Dextrose) 50 mls @ 100 mls/hr IVPB Q6H-IV [facility]; Protocol Last Admin: 03/12/19 09:02 Dose: 100 mls/hr Dextrose/Sodium Chloride (D5-Ns -) 1,000 mls @ 83 mls/hr IV ASDIR [facility] Last Admin: 03/11/19 21:08 Dose: 83 mls/hr Pantoprazole Sodium 80 mg/ (Sodium Chloride) 100 mls @ 10 mls/hr IVPB Q10H [facility] Last Admin: 03/12/19 09:01 Dose: 10 mls/hr Multivitamins/Minerals/Vitamin C (Tab-A-Vit -) 1 tab PO DAILY [facility] Last Admin: 03/12/19 10:25 Dose: 1 tab Rosuvastatin Calcium (Crestor -) 5 mg PO [facility] Last Admin: 03/11/19 22:19 Dose: 5 mg Senna (Senna -) 2 tab PO HS [facility] Last Admin: 03/11/19 22:19 Dose: 2 tab Simethicone (Mylicon Liquid -) 40 mg PO QID PRN PRN Reason: CONSTIPATION Solifenacin (Vesicare -) 5 mg PO HS [facility] Last Admin: 03/11/19 22:19 Dose: 5 mg - Objective Vital Signs: Vital Signs Temperature 98.4 F 03/12/19 06:00 Pulse Rate 80 03/12/19 06:00 Respiratory Rate 18 03/12/19 06:00 Blood Pressure 99/58 L 03/12/19 06:00 O2 Sat by Pulse Oximetry (%) 98 03/11/19 21:00 Constitutional: Yes: No Distress, Calm Cardiovascular: Yes: Regular Rate and Rhythm, S1, S2 Respiratory: Yes: Regular, CTA Bilaterally, Rales Gastrointestinal: Yes: Normal Bowel Sounds, Soft. No: Tenderness Neurological: Yes: Alert, Oriented Labs: CBC, BMP 03/12/19 06:17 03/12/19 06:17 INR, PTT INR 1.88 (0.83-1.09) H 03/12/19 06:17 Problem List - Problems (1) Coffee ground emesis Code(s): K92.0 - HEMATEMESIS (2) Fever Code(s): R50.9 - FEVER, UNSPECIFIED (3) ROSE MARY (acute kidney injury) Code(s): N17.9 - ACUTE KIDNEY FAILURE, UNSPECIFIED (4) UTI (urinary tract infection) Code(s): N39.0 - URINARY TRACT INFECTION, SITE NOT SPECIFIED Qualifiers: Indwelling urinary catheter type: unspecified (5) Vaginal bleeding Code(s): N93.9 - ABNORMAL UTERINE AND VAGINAL BLEEDING, UNSPECIFIED (6) Atrial fibrillation Code(s): I48.91 - UNSPECIFIED ATRIAL FIBRILLATION (7) Supratherapeutic INR Code(s): R79.1 - ABNORMAL COAGULATION PROFILE (8) Hypertension Code(s): I10 - ESSENTIAL (PRIMARY) HYPERTENSION Assessment/Plan IVF IV abtx Clear liquid diet GI and ID consults are appreciated Coumadin to be restarted AM labs Pt's condition was d/w pt's nurse.
--- NOTE | 2019-03-12 14:06 | ECHO ---
Name: ZEB BLUE SR. Exam:Adult Echocardiogram Study Date: 03/12/2019 07:47 AM Age: 88 yrs Reason For Study: fever, AVR Height: 65 in Weight: 170 lb BSA: 1.8 m2 MMode/2D Measurements & Calculations IVSd: 1.3 cm Ao root diam: 3.2 cm LVIDd: 4.1 cm LA dimension: 2.7 cm LVIDs: 2.9 cm LVPWd: 1.2 cm EDV(Teich): 72.7 ml LVOT diam: 2.0 cm ESV(Teich): 31.0 ml Doppler Measurements & Calculations MV E max ramses: 178.0 cm/sec Ao V2 max: 219.2 cm/sec MV dec time: 0.18 sec Ao max P.2 mmHg Ao V2 mean: 152.1 cm/sec Ao mean P.7 mmHg Ao V2 VTI: 41.8 cm NAOMI(I,D): 1.0 cm2 NAOMI(V,D): 1.2 cm2 LV V1 max P.8 mmHg SV(LVOT): 43.1 ml LV V1 mean P.6 mmHg LV V1 max: 82.9 cm/sec LV V1 mean: 59.6 cm/sec LV V1 VTI: 14.2 cm PA V2 max: 93.7 cm/sec Med Peak E' Ramses: 8.1 cm/sec PA max P.5 mmHg Med E/e': 22.1 Lat Peak E' Ramses: 7.1 cm/sec Lat E/e': 25.2 Procedure The study was technically difficult with many images being suboptimal in quality. Left Ventricle The left ventricular size, thickness and function are normal. The left ventricular ejection fraction is normal. Regional wall motion abnormalities cannot be excluded due to limited visualization. Right Ventricle The right ventricle is not well visualized. Atria Normal left and right atrial size and function. Mitral Valve The mitral valve is not well visualized. Tricuspid Valve The tricuspid valve is not well visualized. There was insufficient TR detected to calculate RV systol ic pressure. Aortic Valve The prosthetic aortic valve is not well visualized. There is a bioprosthetic aortic valve. The prosth etic aortic valve is well-seated. No hemodynamically significant valvular aortic stenosis. No aortic regur gitation is present. Pulmonic Valve The pulmonic valve is not well visualized. Great Vessels The aortic root is normal size. Pericardium/Pleura There is no pericardial effusion. Interpretation Summary Clinical correlation is recommended. Would consider a transesophageal echocardiogram if clinically in dicated. The study was technically difficult with many images being suboptimal in quality. The left ventricular size, thickness and function are normal The prosthetic aortic valve is not well visualized. There is a bioprosthetic aortic valve. The prosthetic aortic valve is well-seated. The left ventricular ejection fraction is normal. Regional wall motion abnormalities cannot be excluded due to limited visualization. The mitral valve is not well visualized. The tricuspid valve is not well visualized. There was insufficient TR detected to calculate RV systolic pressure. No hemodynamically significant valvular aortic stenosis. No aortic regurgitation is present. Clinical correlation is recommended. Would consider a transesophageal echocardiogram if clinically indicated. MD Zac Llily 03/12/2019 02:06 PM
--- NOTE | 2019-03-12 15:52 | PN ---
Progress Note (short form) - Note Progress Note: awake and alert but confused- unchanged from yesterday no BM Vital Signs Period Temp Pulse Resp BP Sys/Zafar Pulse Ox Last 24 Hr 97.7 F-98.8 F 72-107 18-18 94-126/42-79 97-98 cor-rrr lungs decreased bs at bases abd protuberant, discomfort on palpation lower abdomen- ext unchanged CBC, BMP 03/12/19 06:17 03/12/19 06:17 Microbiology 03/11/19 15:00 Blood - Peripheral Venous Blood Culture - Preliminary NO GROWTH OBTAINED AFTER 24 HOURS, INCUBATION TO CONTINUE FOR 4 DAYS. 03/11/19 15:00 Blood - Peripheral Venous Blood Culture - Preliminary NO GROWTH OBTAINED AFTER 24 HOURS, INCUBATION TO CONTINUE FOR [address] scan collection right breast multiple broken ribs right- healing abd/pelvis- adnexal mass left mild hydronephrosis left hip prosthesis urine culture pending a/p persistent leukocytosis and ROSE MARY left mild hydronephrosis bladder scan now to see if romero is needed ultrasound kidneys and bladder continue IVF continue zosyn may need urology to see history of AVR dementia Problem List - Problems (1) Sepsis Code(s): A41.9 - SEPSIS, UNSPECIFIED ORGANISM (2) Coffee ground emesis Code(s): K92.0 - HEMATEMESIS (3) ROSE MARY (acute kidney injury) Code(s): N17.9 - ACUTE KIDNEY FAILURE, UNSPECIFIED (4) UTI (urinary tract infection) Code(s): N39.0 - URINARY TRACT INFECTION, SITE NOT SPECIFIED Qualifiers: Indwelling urinary catheter type: unspecified (5) H/O aortic valve replacement Code(s): Z95.2 - PRESENCE OF PROSTHETIC HEART VALVE
[2019-03-12] MEDS: SENNOSIDES 8.6MG TABLET (FP) PO SCH (21:21)
--- NOTE | 2019-03-12 21:21 | PN.GI ---
GI Progress Note Subjective: Gi NOte: No futher vomiting. No melena. Hb drop consistent with hydration. WBC rising. No obvious SBE on echo but images are suboptimal.i - Objective Vital Signs: Vital Signs Temperature 98.2 F 03/12/19 18:00 Pulse Rate 95 H 03/12/19 18:00 Respiratory Rate 18 03/12/19 18:00 Blood Pressure 100/41 L 03/12/19 18:00 O2 Sat by Pulse Oximetry (%) 98 03/12/19 09:00 Laboratory Tests 03/11/19 03/11/19 03/12/19 14:15 14:15 06:17 WBC 28.5 H 30.4 H* Hgb 12.1 10.7 BUN 27.4 H Creatinine 2.0 H Total Bilirubin AST ALT Alkaline Phosphatase 115 Albumin 03/12/19 06:17 WBC Hgb BUN 31.0 H Creatinine 2.0 H Total Bilirubin 1.0 AST 17 ALT 14 Alkaline Phosphatase 92 Albumin 2.5 L Constitutional: No Distress ...Auscultate: Yes: Normoactive Bowel Sounds ...Palpate: Yes: Soft, Other (nontender) Labs: CBC, BMP 03/12/19 06:17 03/12/19 06:17 INR, PTT INR 1.88 (0.83-1.09) H 03/12/19 06:17 Assessment/Plan Impresion: - Continue to suspect vomiting was secondary to urosepsis. No GI hemorrhage has manifested so far Plan: -- Await urine culture -- Given the leucocytosis will send stool for C diff -- Will advance diet Discussed case with Dr Guerra earlier in the day Problem List - Problems (1) Coffee ground emesis Code(s): K92.0 - HEMATEMESIS (2) Hx of CABG Code(s): Z95.1 - PRESENCE OF AORTOCORONARY BYPASS GRAFT (3) Cholelithiasis Code(s): K80.20 - CALCULUS OF GALLBLADDER W/O CHOLECYSTITIS W/O OBSTRUCTION (4) Adrenal adenoma Code(s): D35.00 - BENIGN NEOPLASM OF UNSPECIFIED ADRENAL GLAND (5) Pelvic mass Code(s): R19.00 - INTRA-ABD AND PELVIC SWELLING, MASS AND LUMP, UNSP SITE (6) Leiomyoma of body of uterus Code(s): D25.9 - LEIOMYOMA OF UTERUS, UNSPECIFIED (7) Vaginal bleeding Code(s): N93.9 - ABNORMAL UTERINE AND VAGINAL BLEEDING, UNSPECIFIED (8) Hyponatremia Code(s): E87.1 - HYPO-OSMOLALITY AND HYPONATREMIA (9) ROSE MARY (acute kidney injury) Code(s): N17.9 - ACUTE KIDNEY FAILURE, UNSPECIFIED (10) H/O aortic valve replacement Code(s): Z95.2 - PRESENCE OF PROSTHETIC HEART VALVE (11) Atrial fibrillation Code(s): I48.91 - UNSPECIFIED ATRIAL FIBRILLATION (12) UTI (urinary tract infection) Code(s): N39.0 - URINARY TRACT INFECTION, SITE NOT SPECIFIED Qualifiers: Indwelling urinary catheter type: unspecified
[2019-03-12] MEDS: WARFARIN NA 5 MG TABLET (UD) PO SCH (21:22)
[2019-03-12] MEDS: SOLIFENACIN SUCCINATE 5 MG TAB PO SCH (21:22)
[2019-03-12] MEDS: DOCUSATE SODIUM 100 MG CAPSULE (FP) PO SCH (21:22)
[2019-03-12] MEDS: ROSUVASTATIN CA 5 MG TABLET (FP) PO SCH (21:22)
[2019-03-13] MEDS ORDERED: DEXTROSE 5%-WATER - 50 ML IVPB ONE ×4 (02:23→20:45)
[2019-03-13] MEDS ORDERED: PIPERACILLIN/TAZOBACTAM 2.25 GM VIAL IVPB ONE ×4 (02:23→20:45)
[2019-03-13] MEDS: PIPERACILLIN/TAZOB 2.25 GM 2.25 GM in DEXTROSE 5%-WATER - 50 ML IVPB SCH ×5 (02:25→21:35)
[2019-03-13 08:33] LABS: INR 2.04 (0.83-1.09); PROTHROMBIN TIME (PATIENT) 24.3 SEC (9.7-13.0)
[2019-03-13 08:40] LABS: HEMATOCRIT 29.7 % (32.4-45.2); HEMOGLOBIN 9.7 GM/dL (10.7-15.3); MCH 29.3 pg (25.7-33.7); MCHC 32.5 g/dl (32.0-36.0); MEAN CELL VOLUME 90.2 fl (80-96); RDW 13.5 % (11.6-15.6); WHITE BLOOD COUNT 27.4 K/mm3 (4.0-10.0)
[2019-03-13 08:57] LABS: PLATELET COUNT 358 K/MM3 (134-434)
[2019-03-13 09:00] LABS: ALBUMIN 2.2 g/dl (3.4-5.0); BILIRUBIN,TOTAL 0.8 mg/dL (0.2-1); BLOOD UREA NITROGEN 30.7 mg/dL (7-18); CREATININE 2.2 mg/dL (0.55-1.3); POTASSIUM 3.6 mmol/L (3.5-5.1); TOT PROT 5.1 g/dl (6.4-8.2)
[2019-03-13] MEDS: CARVEDILOL 6.25 MG TABLET (FP) PO SCH ×2 (10:44→21:35)
[2019-03-13] MEDS: PANTOPRAZOLE 40 MG TABLET (FP) PO SCH ×2 (10:44→21:35)
[2019-03-13] MEDS: ASPIRIN 81 MG CHEWABLE TABLETS PO SCH (10:44)
[2019-03-13] MEDS: ASCORBIC ACID 500 MG TABLET (FP) PO SCH (10:44)
[2019-03-13] MEDS: MULTIVITAMINS (DAILY MVI) TABLET (FP) PO SCH (10:44)
--- NOTE | 2019-03-13 16:39 | PN ---
Progress Note, Physician History of Present Illness: Pt w/o fever, chills, cg, SOB, N, V, abd pain, diarrhea, dysuria. Pt w/o CP, palpitations. Pt w/o BM - Current Medication List Current Medications: Active Medications Acetaminophen (Tylenol -) 650 mg PO Q6H PRN PRN Reason: PAIN Ascorbic Acid (Vitamin C -) 500 mg PO DAILY [facility] Last Admin: 03/13/19 10:44 Dose: 500 mg Aspirin (Asa -) 81 mg PO DAILY [facility] Last Admin: 03/13/19 10:44 Dose: 81 mg Carvedilol (Coreg -) 6.25 mg PO BID [facility] Last Admin: 03/13/19 10:44 Dose: 6.25 mg Docusate Sodium (Colace -) 100 mg PO [facility] Last Admin: 03/12/19 21:22 Dose: 100 mg Piperacillin Sod/Tazobactam (Sod 2.25 gm/ Dextrose) 50 mls @ 100 mls/hr IVPB Q6H-IV [facility]; Protocol Last Admin: 03/13/19 15:00 Dose: Not Given Dextrose/Sodium Chloride (D5-Ns -) 1,000 mls @ 83 mls/hr IV ASDIR [facility] Last Admin: 03/11/19 21:08 Dose: 83 mls/hr Multivitamins/Minerals/Vitamin C (Tab-A-Vit -) 1 tab PO DAILY [facility] Last Admin: 03/13/19 10:44 Dose: 1 tab Pantoprazole Sodium (Protonix -) 40 mg PO BID [facility] Last Admin: 03/13/19 10:44 Dose: 40 mg Rosuvastatin Calcium (Crestor -) 5 mg PO [facility] Last Admin: 03/12/19 21:22 Dose: 5 mg Senna (Senna -) 2 tab PO HS [facility] Last Admin: 03/12/19 21:21 Dose: 2 tab Simethicone (Mylicon Liquid -) 40 mg PO QID PRN PRN Reason: CONSTIPATION Solifenacin (Vesicare -) 5 mg PO HS [facility] Last Admin: 03/12/19 21:22 Dose: 5 mg Warfarin Sodium (Coumadin -) 5 mg PO DAILY@1800 [facility] Last Admin: 03/12/19 21:22 Dose: 5 mg - Objective Vital Signs: Vital Signs Temperature 98.3 F 03/13/19 15:11 Pulse Rate 73 03/13/19 15:11 Respiratory Rate 18 03/13/19 15:11 Blood Pressure 122/93 03/13/19 15:11 O2 Sat by Pulse Oximetry (%) 98 03/13/19 09:40 Constitutional: Yes: No Distress, Calm Cardiovascular: Yes: Regular Rate and Rhythm, S1, S2 Respiratory: Yes: Regular, CTA Bilaterally. No: Rales Gastrointestinal: Yes: Normal Bowel Sounds, Soft. No: Tenderness Edema: No Neurological: Yes: Alert, Oriented Labs: CBC, BMP 03/13/19 07:00 03/13/19 07:00 INR, PTT INR 2.04 (0.83-1.09) H 03/13/19 07:00 Problem List - Problems (1) Coffee ground emesis Code(s): K92.0 - HEMATEMESIS (2) Fever Code(s): R50.9 - FEVER, UNSPECIFIED (3) ROSE MARY (acute kidney injury) Code(s): N17.9 - ACUTE KIDNEY FAILURE, UNSPECIFIED (4) UTI (urinary tract infection) Code(s): N39.0 - URINARY TRACT INFECTION, SITE NOT SPECIFIED Qualifiers: Indwelling urinary catheter type: unspecified (5) Vaginal bleeding Code(s): N93.9 - ABNORMAL UTERINE AND VAGINAL BLEEDING, UNSPECIFIED (6) Atrial fibrillation Code(s): I48.91 - UNSPECIFIED ATRIAL FIBRILLATION (7) Supratherapeutic INR Code(s): R79.1 - ABNORMAL COAGULATION PROFILE (8) Hypertension Code(s): I10 - ESSENTIAL (PRIMARY) HYPERTENSION (9) Constipation Assessment/Plan: Pt is refusing medication, agrees with [employer] Code(s): K59.00 - CONSTIPATION, UNSPECIFIED Assessment/Plan IVF; were on hold secondary to poor IV access; creatinine slightly up IV abtx Clear liquid diet GI and ID consults are appreciated Coumadin was restarted AM labs Pt's condition was d/w pt's nurse.
--- NOTE | 2019-03-13 16:47 | PN ---
Progress Note (short form) - Note Progress Note: alert remais confused with short term memory deficit romero placed for urinary retention no BM Vital Signs Period Temp Pulse Resp BP Sys/Zafar Pulse Ox Last 24 Hr 98.2 F-98.7 F 71-95 18-18 97-122/41-93 98-98 cor-rrr ecchymoses right breast lungs decreased bs at bases abd soft,nt ext no edema CBC, BMP 03/13/19 07:00 03/13/19 07:00 Microbiology 03/11/19 15:00 Blood - Peripheral Venous Blood Culture - Preliminary NO GROWTH OBTAINED AFTER 48 HOURS, INCUBATION TO CONTINUE FOR 3 DAYS. 03/11/19 15:00 Blood - Peripheral Venous Blood Culture - Preliminary NO GROWTH OBTAINED AFTER 48 HOURS, INCUBATION TO CONTINUE FOR 3 DAYS. 03/11/19 15:45 Urine - Urine Clean Catch Urine Culture - Final Contaminated: Please Repeat ct scan collection right breast multiple broken ribs right- healing abd/pelvis- adnexal mass left mild hydronephrosis left hip prosthesis urine culture pending a/p persistent leukocytosis and ROSE MARY left mild hydronephrosis urinary retention continue zosyn history of AVR dementia d/w dr don Problem List - Problems (1) Sepsis Code(s): A41.9 - SEPSIS, UNSPECIFIED ORGANISM (2) Coffee ground emesis Code(s): K92.0 - HEMATEMESIS (3) ROSE MARY (acute kidney injury) Code(s): N17.9 - ACUTE KIDNEY FAILURE, UNSPECIFIED (4) UTI (urinary tract infection) Code(s): N39.0 - URINARY TRACT INFECTION, SITE NOT SPECIFIED Qualifiers: Indwelling urinary catheter type: unspecified (5) H/O aortic valve replacement Code(s): Z95.2 - PRESENCE OF PROSTHETIC HEART VALVE
[2019-03-13] MEDS: WARFARIN NA 5 MG TABLET (UD) PO SCH (17:08)
[2019-03-13] MEDS: DEXTROSE 5%-NORMAL SALINE 1,000 ML IV SCH ×2 (17:09→21:35)
--- NOTE | 2019-03-13 21:09 | PN.GI ---
GI Progress Note Subjective: GI NOte: No further hematemesis, NO melena but Hb dwindling, 2nd stool for occult blood is negative - Objective Vital Signs: Vital Signs Temperature 98.9 F 03/13/19 18:00 Pulse Rate 69 03/13/19 18:00 Respiratory Rate 20 03/13/19 18:00 Blood Pressure 155/55 L 03/13/19 18:00 O2 Sat by Pulse Oximetry (%) 98 03/13/19 09:40 Laboratory Tests 03/11/19 03/12/19 03/13/19 14:15 06: 07:00 WBC 28.5 H 30.4 H* 27.4 H Hgb 12.1 10.7 9.7 L MCV 90.2 BUN Creatinine 03/13/19 07:00 WBC Hgb MCV BUN 30.7 H Creatinine 2.2 H Constitutional: No Distress ...Auscultate: Yes: Normoactive Bowel Sounds ...Palpate: Yes: Soft, Other (nontender) Labs: CBC, BMP 03/13/19 07:00 03/13/19 07:00 INR, PTT INR 2.04 (0.83-1.09) H 03/13/19 07:00 Assessment/Plan Impresion: - Continue to suspect vomiting was secondary to urosepsis. Urine C/S contaminated. Await repeat. No GI hemorrhage has manifested so far Plan: -- Await urine culture -- Given the leucocytosis ordered stool for C diff -- Will advance diet to soft Problem List - Problems (1) Coffee ground emesis Code(s): K92.0 - HEMATEMESIS (2) Hx of CABG Code(s): Z95.1 - PRESENCE OF AORTOCORONARY BYPASS GRAFT (3) Cholelithiasis Code(s): K80.20 - CALCULUS OF GALLBLADDER W/O CHOLECYSTITIS W/O OBSTRUCTION (4) Adrenal adenoma Code(s): D35.00 - BENIGN NEOPLASM OF UNSPECIFIED ADRENAL GLAND (5) Pelvic mass Code(s): R19.00 - INTRA-ABD AND PELVIC SWELLING, MASS AND LUMP, UNSP SITE (6) Leiomyoma of body of uterus Code(s): D25.9 - LEIOMYOMA OF UTERUS, UNSPECIFIED (7) Vaginal bleeding Code(s): N93.9 - ABNORMAL UTERINE AND VAGINAL BLEEDING, UNSPECIFIED (8) Hyponatremia Code(s): E87.1 - HYPO-OSMOLALITY AND HYPONATREMIA (9) ROSE MARY (acute kidney injury) Code(s): N17.9 - ACUTE KIDNEY FAILURE, UNSPECIFIED (10) H/O aortic valve replacement Code(s): Z95.2 - PRESENCE OF PROSTHETIC HEART VALVE (11) Atrial fibrillation Code(s): I48.91 - UNSPECIFIED ATRIAL FIBRILLATION (12) UTI (urinary tract infection) Code(s): N39.0 - URINARY TRACT INFECTION, SITE NOT SPECIFIED Qualifiers: Indwelling urinary catheter type: unspecified
[2019-03-13] MEDS: SOLIFENACIN SUCCINATE 5 MG TAB PO SCH (21:35)
[2019-03-13] MEDS: ROSUVASTATIN CA 5 MG TABLET (FP) PO SCH (21:35)
[2019-03-13] MEDS: SENNOSIDES 8.6MG TABLET (FP) PO SCH (21:37)
[2019-03-13] MEDS: DOCUSATE SODIUM 100 MG CAPSULE (FP) PO SCH (21:41)
[2019-03-14] MEDS ORDERED: PIPERACILLIN/TAZOBACTAM 2.25 GM VIAL IVPB ONE ×4 (01:53→22:36)
[2019-03-14] MEDS: PIPERACILLIN/TAZOB 2.25 GM 2.25 GM in DEXTROSE 5%-WATER - 50 ML IVPB SCH ×4 (02:21→22:52)
--- NOTE | 2019-03-14 07:01 | PROC ---
Procedure Note Procedure: Called by patient's RN as they are unable to obtain peripheral IV access after multiple attempts. Placed 22ga angiocath into dorsum of right hand last night at 16:30. Aspirates easily. Flushes. Line secured w/ occlusive dressing. Patient tolerated well. Line ok to use
[2019-03-14 07:51] LABS: INR 2.83 (0.83-1.09); PROTHROMBIN TIME (PATIENT) 33.7 SEC (9.7-13.0)
[2019-03-14 07:57] LABS: BILIRUBIN,TOTAL 0.6 mg/dL (0.2-1); BLOOD UREA NITROGEN 26.6 mg/dL (7-18); CALCIUM 7.7 mg/dL (8.5-10.1); POTASSIUM 3.3 mmol/L (3.5-5.1); TOT PROT 4.7 g/dl (6.4-8.2)
[2019-03-14] MEDS: DEXTROSE 5%-NORMAL SALINE 1,000 ML IV SCH ×2 (08:10→22:53)
[2019-03-14 08:28] LABS: HEMATOCRIT 27.6 % (32.4-45.2); HEMOGLOBIN 9.1 GM/dL (10.7-15.3); MCH 29.2 pg (25.7-33.7); MCHC 33.1 g/dl (32.0-36.0); MEAN CELL VOLUME 88.2 fl (80-96); MEAN PLT VOLUME 6.9 fl (7.5-11.1); PLATELET COUNT 370 K/MM3 (134-434); RBC 3.13 M/mm3 (3.60-5.2); RDW 13.5 % (11.6-15.6); WHITE BLOOD COUNT 22.6 K/mm3 (4.0-10.0)
[2019-03-14] MEDS ORDERED: DEXTROSE 5%-WATER - 50 ML IVPB ONE ×3 (09:26→22:36)
[2019-03-14] MEDS: PANTOPRAZOLE 40 MG TABLET (FP) PO SCH ×3 (09:57→22:52)
[2019-03-14] MEDS: MULTIVITAMINS (DAILY MVI) TABLET (FP) PO SCH (09:57)
[2019-03-14] MEDS: CARVEDILOL 6.25 MG TABLET (FP) PO SCH ×2 (09:58→22:51)
[2019-03-14] MEDS: ASPIRIN 81 MG CHEWABLE TABLETS PO SCH (09:58)
[2019-03-14] MEDS: ASCORBIC ACID 500 MG TABLET (FP) PO SCH (09:58)
--- NOTE | 2019-03-14 10:50 | PN ---
Progress Note, Physician History of Present Illness: Pt w/o CP, palpitations, cg, SOB, N, V, abd pain, diarrhea, dysuria. - Current Medication List Current Medications: Active Medications Acetaminophen (Tylenol -) 650 mg PO Q6H PRN PRN Reason: PAIN Ascorbic Acid (Vitamin C -) 500 mg PO DAILY [facility] Last Admin: 03/14/19 09:58 Dose: 500 mg Aspirin (Asa -) 81 mg PO DAILY [facility] Last Admin: 03/14/19 09:58 Dose: 81 mg Carvedilol (Coreg -) 6.25 mg PO BID [facility] Last Admin: 03/14/19 09:58 Dose: 6.25 mg Docusate Sodium (Colace -) 100 mg PO HS [facility] Last Admin: 03/13/19 21:41 Dose: Not Given Piperacillin Sod/Tazobactam (Sod 2.25 gm/ Dextrose) 50 mls @ 100 mls/hr IVPB Q6H-IV [facility]; Protocol Last Admin: 03/14/19 09:59 Dose: 100 mls/hr Dextrose/Sodium Chloride (D5-Ns -) 1,000 mls @ 83 mls/hr IV ASDIR [facility] Last Admin: 03/14/19 08:10 Dose: 83 mls/hr Multivitamins/Minerals/Vitamin C (Tab-A-Vit -) 1 tab PO DAILY [facility] Last Admin: 03/14/19 09:57 Dose: 1 tab Pantoprazole Sodium (Protonix -) 40 mg PO BID [facility] Last Admin: 03/14/19 09:57 Dose: 40 mg Rosuvastatin Calcium (Crestor -) 5 mg PO [facility] Last Admin: 03/13/19 21:35 Dose: 5 mg Senna (Senna -) 2 tab PO HS [facility] Last Admin: 03/13/19 21:37 Dose: 2 tab Simethicone (Mylicon Liquid -) 40 mg PO QID PRN PRN Reason: CONSTIPATION Solifenacin (Vesicare -) 5 mg PO [facility] Last Admin: 03/13/19 21:35 Dose: 5 mg Warfarin Sodium (Coumadin -) 5 mg PO DAILY@1800 [facility] Last Admin: 03/13/19 17:08 Dose: 5 mg - Objective Vital Signs: Vital Signs Temperature 98.9 F 03/13/19 18:00 Pulse Rate 69 03/13/19 18:00 Respiratory Rate 20 06/13/19 18:00 Blood Pressure 155/55 L 03/13/19 18:00 O2 Sat by Pulse Oximetry (%) 98 03/13/19 21:00 Constitutional: Yes: No Distress, Calm Cardiovascular: Yes: Regular Rate and Rhythm, S1, S2 Respiratory: Yes: Regular, CTA Bilaterally Gastrointestinal: Yes: Normal Bowel Sounds, Soft. No: Tenderness Neurological: Yes: Alert, Oriented Labs: CBC, BMP 03/14/19 06:40 03/14/19 06:40 INR, PTT INR 2.83 (0.83-1.09) H 03/14/19 06:40 Problem List - Problems (1) Coffee ground emesis Code(s): K92.0 - HEMATEMESIS (2) Fever Code(s): R50.9 - FEVER, UNSPECIFIED (3) ROSE MARY (acute kidney injury) Code(s): N17.9 - ACUTE KIDNEY FAILURE, UNSPECIFIED (4) UTI (urinary tract infection) Code(s): N39.0 - URINARY TRACT INFECTION, SITE NOT SPECIFIED Qualifiers: Indwelling urinary catheter type: unspecified (5) Vaginal bleeding Code(s): N93.9 - ABNORMAL UTERINE AND VAGINAL BLEEDING, UNSPECIFIED (6) Atrial fibrillation Code(s): I48.91 - UNSPECIFIED ATRIAL FIBRILLATION (7) Supratherapeutic INR Code(s): R79.1 - ABNORMAL COAGULATION PROFILE (8) Hypertension Code(s): I10 - ESSENTIAL (PRIMARY) HYPERTENSION (9) Constipation Code(s): K59.00 - CONSTIPATION, UNSPECIFIED Assessment/Plan IVF; to decrease the rate IV abtx Diet was advanced GI and ID consults are appreciated Coumadin was restarted AM labs Pt's condition was d/w pt's nurse.
[2019-03-14] MEDS ORDERED: WARFARIN NA 2 MG TABLET (UD) PO ONE (18:00)
[2019-03-14] MEDS: DOCUSATE SODIUM 100 MG CAPSULE (FP) PO SCH (22:50)
[2019-03-14] MEDS: ROSUVASTATIN CA 5 MG TABLET (FP) PO SCH (22:51)
[2019-03-14] MEDS: POTASSIUM CHLORIDE TABS 10 MEQ TABLET.ER (FP) PO ONE ×2 (22:51→23:24)
[2019-03-14] MEDS: SENNOSIDES 8.6MG TABLET (FP) PO SCH (22:51)
[2019-03-14] MEDS: SOLIFENACIN SUCCINATE 5 MG TAB PO SCH (22:51)
[2019-03-14] MEDS ORDERED: POTASSIUM CHLORIDE ORAL LIQUID 20 MEQ/15 ML PO ONE (23:30)
[2019-03-15] MEDS ORDERED: PIPERACILLIN/TAZOBACTAM 2.25 GM VIAL IVPB ONE ×4 (02:09→21:33)
[2019-03-15] MEDS ORDERED: DEXTROSE 5%-WATER - 50 ML IVPB ONE ×4 (02:09→21:33)
[2019-03-15] MEDS: PIPERACILLIN/TAZOB 2.25 GM 2.25 GM in DEXTROSE 5%-WATER - 50 ML IVPB SCH ×4 (02:18→21:51)
[2019-03-15 07:56] LABS: BLOOD UREA NITROGEN 24.8 mg/dL (7-18); CREATININE 1.9 mg/dL (0.55-1.3); POTASSIUM 3.8 mmol/L (3.5-5.1)
[2019-03-15 08:00] LABS: INR 3.57 (0.83-1.09); PROTHROMBIN TIME (PATIENT) 42.7 SEC (9.7-13.0)
[2019-03-15 08:06] LABS: HEMOGLOBIN 9.6 GM/dL (10.7-15.3); MCH 29.8 pg (25.7-33.7); MCHC 33.3 g/dl (32.0-36.0); MEAN CELL VOLUME 89.7 fl (80-96); MEAN PLT VOLUME 6.9 fl (7.5-11.1); PLATELET COUNT 394 K/MM3 (134-434); RBC 3.23 M/mm3 (3.60-5.2); RDW 13.4 % (11.6-15.6); WHITE BLOOD COUNT 19.7 K/mm3 (4.0-10.0)
[2019-03-15] MEDS: PANTOPRAZOLE 40 MG TABLET (FP) PO SCH ×2 (09:26→21:52)
[2019-03-15] MEDS: ASCORBIC ACID 500 MG TABLET (FP) PO SCH (09:26)
[2019-03-15] MEDS: MULTIVITAMINS (DAILY MVI) TABLET (FP) PO SCH (09:26)
[2019-03-15] MEDS: ASPIRIN 81 MG CHEWABLE TABLETS PO SCH (09:26)
[2019-03-15] MEDS: CARVEDILOL 6.25 MG TABLET (FP) PO SCH ×2 (09:27→21:55)
--- NOTE | 2019-03-15 10:12 | CONS ---
DATE OF CONSULTATION: 03/13/2019 REASON FOR CONSULTATION: Right adnexal cyst. Patient is an 88-year-old female with history of coronary artery disease, heart failure, hypertension, and previous history of coronary artery bypass and aortic valve replacement. She was admitted basically for coffee-ground emesis in the [facility] and brought to the ER, admitted for possible sepsis, rule out UTI. On the CAT scan of the abdomen and pelvis, was found to have a 6-cm soft tissue density in the right adnexal area. There was no evidence of diverticulitis or ascites. I was asked to see the patient. Patient has dementia, and history is not obtainable. History was obtained from the chart. PHYSICAL EXAMINATION: General: At bedside exam, she is morbidly obese. Abdomen: Soft, nontender. No rebound. Pelvic: unable to do the pelvic exam because of the patient's habitus and condition. IMPRESSION: Right adnexal mass, rule out ovarian cyst versus hydrosalpinx versus neoplasm. We will do CA-125, but because of surgical risks, do not recommend any procedure at this time. Further evaluation with CA-125. SVETLANA EVANS M.D. [id number]
[2019-03-15] MEDS: PANTOPRAZOLE SODIUM 80 MG in SODIUM CHLORIDE 100 ML IVPB SCH (10:18)
--- NOTE | 2019-03-15 12:43 | PN ---
Progress Note (short form) - Note Progress Note: alert eating lunch romero placed for urinary retention + BM (but she doesn't remember) Vital Signs Period Temp Pulse Resp BP Sys/Zafar Pulse Ox Last 24 Hr 97.7 F-98.0 F 64-70 18-20 100-125/48-57 98 cor-rrr lungs decreased bs t bases abd soft,nt ext no edema +romero CBC, BMP 03/15/19 06:36 03/15/19 06:36 Microbiology 03/11/19 15:00 Blood - Peripheral Venous Blood Culture - Preliminary NO GROWTH OBTAINED AFTER 72 HOURS, INCUBATION TO CONTINUE FOR 2 DAYS. 03/11/19 15:00 Blood - Peripheral Venous Blood Culture - Preliminary NO GROWTH OBTAINED AFTER 72 HOURS, INCUBATION TO CONTINUE FOR 2 DAYS. 03/11/19 15:45 Urine - Urine Clean Catch Urine Culture - Final Contaminated: Please Repeat ct scan collection right breast multiple broken ribs right- healing abd/pelvis- adnexal mass left mild hydronephrosis left hip prosthesis a/p suspected UTI- continue zosyn day#4 urinary retention-has romero history of AVR dementia adnexal mass- tumor markers sent Problem List - Problems (1) Sepsis Code(s): A41.9 - SEPSIS, UNSPECIFIED ORGANISM (2) Coffee ground emesis Code(s): K92.0 - HEMATEMESIS (3) ROSE MARY (acute kidney injury) Code(s): N17.9 - ACUTE KIDNEY FAILURE, UNSPECIFIED (4) UTI (urinary tract infection) Code(s): N39.0 - URINARY TRACT INFECTION, SITE NOT SPECIFIED Qualifiers: Indwelling urinary catheter type: unspecified (5) H/O aortic valve replacement Code(s): Z95.2 - PRESENCE OF PROSTHETIC HEART VALVE
[2019-03-15] MEDS: DEXTROSE 5%-NORMAL SALINE 1,000 ML IV SCH (19:20)
[2019-03-15] MEDS: DOCUSATE SODIUM 100 MG CAPSULE (FP) PO SCH (21:51)
[2019-03-15] MEDS: SENNOSIDES 8.6MG TABLET (FP) PO SCH (21:53)
[2019-03-15] MEDS: ROSUVASTATIN CA 5 MG TABLET (FP) PO SCH (21:53)
[2019-03-15] MEDS: SOLIFENACIN SUCCINATE 5 MG TAB PO SCH (21:53)
--- NOTE | 2019-03-15 23:41 | PN ---
Progress Note, Physician History of Present Illness: Pt w/o CP, palpitations, cough, SOB, N, V, abd pain, diarrhea, dysuria. - Current Medication List Current Medications: Active Medications Acetaminophen (Tylenol -) 650 mg PO Q6H PRN PRN Reason: PAIN Ascorbic Acid (Vitamin C -) 500 mg PO DAILY [facility] Last Admin: 03/15/19 09:26 Dose: 500 mg Aspirin (Asa -) 81 mg PO DAILY [facility] Last Admin: 03/15/19 09:26 Dose: 81 mg Carvedilol (Coreg -) 6.25 mg PO BID [facility] Last Admin: 03/15/19 21:55 Dose: 6.25 mg Docusate Sodium (Colace -) 100 mg PO HS [facility] Last Admin: 03/15/19 21:51 Dose: Not Given Piperacillin Sod/Tazobactam (Sod 2.25 gm/ Dextrose) 50 mls @ 100 mls/hr IVPB Q6H-IV [facility]; Protocol Last Admin: 03/15/19 21:51 Dose: 100 mls/hr Dextrose/Sodium Chloride (D5-Ns -) 1,000 mls @ 42 mls/hr IV ASDIR [facility] Last Admin: 03/14/19 22:53 Dose: 42 mls/hr Multivitamins/Minerals/Vitamin C (Tab-A-Vit -) 1 tab PO DAILY [facility] Last Admin: 03/15/19 09:26 Dose: 1 tab Pantoprazole Sodium (Protonix -) 40 mg PO BID [facility] Last Admin: 03/15/19 21:52 Dose: 40 mg Rosuvastatin Calcium (Crestor -) 5 mg PO [facility] Last Admin: 03/15/19 21:53 Dose: 5 mg Senna (Senna -) 2 tab PO HS [facility] Last Admin: 03/15/19 21:53 Dose: 2 tab Simethicone (Mylicon Liquid -) 40 mg PO QID PRN PRN Reason: CONSTIPATION Solifenacin (Vesicare -) 5 mg PO [facility] Last Admin: 03/15/19 21:53 Dose: 5 mg - Objective Vital Signs: Vital Signs Temperature 98.4 F 03/15/19 18:00 Pulse Rate 66 03/15/19 18:00 Respiratory Rate 20 03/15/19 18:00 Blood Pressure 113/50 L 03/15/19 18:00 O2 Sat by Pulse Oximetry (%) 98 03/15/19 09:00 Constitutional: Yes: No Distress, Calm Cardiovascular: Yes: Regular Rate and Rhythm, S1, S2 Respiratory: Yes: Regular, CTA Bilaterally. No: Rales Gastrointestinal: Yes: Normal Bowel Sounds, Soft. No: Tenderness Neurological: Yes: Alert, Oriented Labs: CBC, BMP 03/15/19 06:36 03/15/19 06:36 INR, PTT INR 3.57 (0.83-1.09) H 03/15/19 06:36 Problem List - Problems (1) Coffee ground emesis Code(s): K92.0 - HEMATEMESIS (2) Fever Code(s): R50.9 - FEVER, UNSPECIFIED (3) ROSE MARY (acute kidney injury) Code(s): N17.9 - ACUTE KIDNEY FAILURE, UNSPECIFIED (4) UTI (urinary tract infection) Code(s): N39.0 - URINARY TRACT INFECTION, SITE NOT SPECIFIED Qualifiers: Indwelling urinary catheter type: unspecified (5) Vaginal bleeding Code(s): N93.9 - ABNORMAL UTERINE AND VAGINAL BLEEDING, UNSPECIFIED (6) Atrial fibrillation Code(s): I48.91 - UNSPECIFIED ATRIAL FIBRILLATION (7) Supratherapeutic INR Code(s): R79.1 - ABNORMAL COAGULATION PROFILE (8) Hypertension Code(s): I10 - ESSENTIAL (PRIMARY) HYPERTENSION (9) Constipation Code(s): K59.00 - CONSTIPATION, UNSPECIFIED Assessment/Plan IVF; low rate IV abtx Diet was advanced GI and ID consults are appreciated Coumadin is on hold secondary to high INR AM labs Pt's condition was d/w pt's nurse.
[2019-03-16] MEDS ORDERED: PIPERACILLIN/TAZOBACTAM 2.25 GM VIAL IVPB ONE ×4 (02:46→19:35)
[2019-03-16] MEDS ORDERED: DEXTROSE 5%-WATER - 50 ML IVPB ONE ×4 (02:48→19:35)
[2019-03-16] MEDS: PIPERACILLIN/TAZOB 2.25 GM 2.25 GM in DEXTROSE 5%-WATER - 50 ML IVPB SCH ×4 (02:50→20:50)
[2019-03-16] MEDS: DEXTROSE 5%-NORMAL SALINE 1,000 ML IV SCH ×2 (02:51→21:03)
[2019-03-16 07:38] LABS: BLOOD UREA NITROGEN 22.7 mg/dL (7-18); CALCIUM 8.2 mg/dL (8.5-10.1); CREATININE 1.7 mg/dL (0.55-1.3); POTASSIUM 3.7 mmol/L (3.5-5.1)
[2019-03-16 07:43] LABS: HEMATOCRIT 28.8 % (32.4-45.2); HEMOGLOBIN 9.4 GM/dL (10.7-15.3); MCHC 32.4 g/dl (32.0-36.0); MEAN CELL VOLUME 89.5 fl (80-96); MEAN PLT VOLUME 6.9 fl (7.5-11.1); RBC 3.22 M/mm3 (3.60-5.2); RDW 13.6 % (11.6-15.6); WHITE BLOOD COUNT 16.8 K/mm3 (4.0-10.0)
[2019-03-16 08:07] LABS: INR 3.12 (0.83-1.09); PROTHROMBIN TIME (PATIENT) 37.3 SEC (9.7-13.0)
[2019-03-16 08:44] LABS: PLATELET COUNT 454 K/MM3 (134-434)
[2019-03-16] MEDS: ASPIRIN 81 MG CHEWABLE TABLETS PO SCH (10:26)
[2019-03-16] MEDS: ASCORBIC ACID 500 MG TABLET (FP) PO SCH (10:27)
[2019-03-16] MEDS: PANTOPRAZOLE 40 MG TABLET (FP) PO SCH ×2 (10:27→21:03)
[2019-03-16] MEDS: MULTIVITAMINS (DAILY MVI) TABLET (FP) PO SCH (10:27)
[2019-03-16] MEDS: CARVEDILOL 6.25 MG TABLET (FP) PO SCH ×2 (10:27→21:03)
--- NOTE | 2019-03-16 13:30 | PN ---
Progress Note, Physician History of Present Illness: Pt w/o CP, palpitations, cough, SOB, abd pain. - Current Medication List Current Medications: Active Medications Acetaminophen (Tylenol -) 650 mg PO Q6H PRN PRN Reason: PAIN Ascorbic Acid (Vitamin C -) 500 mg PO DAILY [facility] Last Admin: 03/16/19 10:27 Dose: 500 mg Aspirin (Asa -) 81 mg PO DAILY [facility] Last Admin: 03/16/19 10:26 Dose: 81 mg Carvedilol (Coreg -) 6.25 mg PO BID [facility] Last Admin: 03/16/19 10:27 Dose: 6.25 mg Docusate Sodium (Colace -) 100 mg PO HS [facility] Last Admin: 03/15/19 21:51 Dose: Not Given Piperacillin Sod/Tazobactam (Sod 2.25 gm/ Dextrose) 50 mls @ 100 mls/hr IVPB Q6H-IV [facility]; Protocol Last Admin: 03/16/19 09:08 Dose: 100 mls/hr Dextrose/Sodium Chloride (D5-Ns -) 1,000 mls @ 42 mls/hr IV ASDIR [facility] Last Admin: 03/16/19 02:51 Dose: 42 mls/hr Multivitamins/Minerals/Vitamin C (Tab-A-Vit -) 1 tab PO DAILY [facility] Last Admin: 03/16/19 10:27 Dose: 1 tab Pantoprazole Sodium (Protonix -) 40 mg PO BID [facility] Last Admin: 03/16/19 10:27 Dose: 40 mg Rosuvastatin Calcium (Crestor -) 5 mg PO HS [facility] Last Admin: 03/15/19 21:53 Dose: 5 mg Senna (Senna -) 2 tab PO HS [facility] Last Admin: 03/15/19 21:53 Dose: 2 tab Simethicone (Mylicon Liquid -) 40 mg PO QID PRN PRN Reason: CONSTIPATION Solifenacin (Vesicare -) 5 mg PO HS [facility] Last Admin: 03/15/19 21:53 Dose: 5 mg - Objective Vital Signs: Vital Signs Temperature 98.7 F 03/16/19 13:00 Pulse Rate 108 H 03/16/19 13:00 Respiratory Rate 18 03/16/19 13:00 Blood Pressure 149/64 03/16/19 13:00 O2 Sat by Pulse Oximetry (%) 98 03/15/19 21:00 Constitutional: Yes: No Distress, Calm Cardiovascular: Yes: Pulse Irregular, S1, S2 Respiratory: Yes: Regular, CTA Bilaterally Gastrointestinal: Yes: Normal Bowel Sounds, Soft, Tenderness Neurological: Yes: Alert, Oriented Labs: CBC, BMP 03/16/19 06:06 03/16/19 06:06 INR, PTT INR 3.12 (0.83-1.09) H 03/16/19 06:06 Problem List - Problems (1) Coffee ground emesis Code(s): K92.0 - HEMATEMESIS (2) Fever Code(s): R50.9 - FEVER, UNSPECIFIED (3) ROSE MARY (acute kidney injury) Code(s): N17.9 - ACUTE KIDNEY FAILURE, UNSPECIFIED (4) UTI (urinary tract infection) Code(s): N39.0 - URINARY TRACT INFECTION, SITE NOT SPECIFIED Qualifiers: Indwelling urinary catheter type: unspecified (5) Vaginal bleeding Code(s): N93.9 - ABNORMAL UTERINE AND VAGINAL BLEEDING, UNSPECIFIED (6) Atrial fibrillation Code(s): I48.91 - UNSPECIFIED ATRIAL FIBRILLATION (7) Supratherapeutic INR Code(s): R79.1 - ABNORMAL COAGULATION PROFILE (8) Hypertension Code(s): I10 - ESSENTIAL (PRIMARY) HYPERTENSION (9) Constipation Code(s): K59.00 - CONSTIPATION, UNSPECIFIED Assessment/Plan IVF; low rate IV abtx Diet was advanced, tolerated well GI and ID consults are appreciated Coumadin is on hold secondary to high INR AM labs Pt's condition was d/w pt's nurse.
[2019-03-16] MEDS: ROSUVASTATIN CA 5 MG TABLET (FP) PO SCH (21:02)
[2019-03-16] MEDS: DOCUSATE SODIUM 100 MG CAPSULE (FP) PO SCH (21:02)
[2019-03-16] MEDS: SOLIFENACIN SUCCINATE 5 MG TAB PO SCH (21:03)
[2019-03-16] MEDS: SENNOSIDES 8.6MG TABLET (FP) PO SCH (21:03)
[2019-03-17] MEDS ORDERED: DEXTROSE 5%-WATER - 50 ML IVPB ONE ×4 (01:40→20:56)
[2019-03-17] MEDS ORDERED: PIPERACILLIN/TAZOBACTAM 2.25 GM VIAL IVPB ONE ×4 (01:40→20:56)
[2019-03-17] MEDS: PIPERACILLIN/TAZOB 2.25 GM 2.25 GM in DEXTROSE 5%-WATER - 50 ML IVPB SCH ×4 (02:39→21:14)
[2019-03-17] MEDS: DEXTROSE 5%-NORMAL SALINE 1,000 ML IV SCH ×2 (02:40→21:02)
[2019-03-17 07:37] LABS: BLOOD UREA NITROGEN 21.4 mg/dL (7-18); CALCIUM 8.4 mg/dL (8.5-10.1); CREATININE 1.8 mg/dL (0.55-1.3); POTASSIUM 3.8 mmol/L (3.5-5.1)
[2019-03-17 07:40] LABS: HEMATOCRIT 29.2 % (32.4-45.2); HEMOGLOBIN 9.5 GM/dL (10.7-15.3); MCH 29.1 pg (25.7-33.7); MCHC 32.6 g/dl (32.0-36.0); MEAN CELL VOLUME 89.2 fl (80-96); MEAN PLT VOLUME 6.7 fl (7.5-11.1); RBC 3.27 M/mm3 (3.60-5.2); RDW 13.6 % (11.6-15.6); WHITE BLOOD COUNT 14.3 K/mm3 (4.0-10.0)
[2019-03-17 09:36] LABS: PLATELET COUNT 501 K/MM3 (134-434)
[2019-03-17] MEDS: PANTOPRAZOLE 40 MG TABLET (FP) PO SCH ×2 (10:43→21:15)
[2019-03-17] MEDS: CARVEDILOL 6.25 MG TABLET (FP) PO SCH ×2 (10:43→21:15)
[2019-03-17] MEDS: ASPIRIN 81 MG CHEWABLE TABLETS PO SCH (10:43)
[2019-03-17] MEDS: MULTIVITAMINS (DAILY MVI) TABLET (FP) PO SCH (10:43)
[2019-03-17] MEDS: ASCORBIC ACID 500 MG TABLET (FP) PO SCH (10:43)
--- NOTE | 2019-03-17 14:57 | PN ---
Progress Note (short form) - Note Progress Note: NAD Vital Signs Period Temp Pulse Resp BP Sys/Zafar Pulse Ox Last 24 Hr 97.8 F-98.5 F 63-111 19-20 103-130/49-80 98 cor-rrr lungs clear abd soft,nt ext no edema +romero CBC, BMP 03/17/19 06:25 03/17/19 06:25 Microbiology 03/11/19 15:00 Blood - Peripheral Venous Blood Culture - Final NO GROWTH AFTER 5 DAYS INCUBATION 03/11/19 15:00 Blood - Peripheral Venous Blood Culture - Final NO GROWTH AFTER 5 DAYS INCUBATION 03/11/19 15:45 Urine - Urine Clean Catch Urine Culture - Final Contaminated: Please Repeat ct scan collection right breast multiple broken ribs right- healing abd/pelvis- adnexal mass left mild hydronephrosis left hip prosthesis a/p suspected UTI- continue zosyn day#6/7 would ocmplete 7 days zosyn then d/c antibiotics and observe urinary retention-has romero history of AVR dementia adnexal mass- tumor markers sent Problem List - Problems (1) Sepsis Code(s): A41.9 - SEPSIS, UNSPECIFIED ORGANISM (2) Coffee ground emesis Code(s): K92.0 - HEMATEMESIS (3) ROSE MARY (acute kidney injury) Code(s): N17.9 - ACUTE KIDNEY FAILURE, UNSPECIFIED (4) UTI (urinary tract infection) Code(s): N39.0 - URINARY TRACT INFECTION, SITE NOT SPECIFIED Qualifiers: Indwelling urinary catheter type: unspecified (5) H/O aortic valve replacement Code(s): Z95.2 - PRESENCE OF PROSTHETIC HEART VALVE
--- NOTE | 2019-03-17 17:43 | PN ---
Progress Note, Physician History of Present Illness: Pt w/o fever, chills, CP, palpitations, cough, SOB, abd pain, diarhea, dysuria. - Current Medication List Current Medications: Active Medications Acetaminophen (Tylenol -) 650 mg PO Q6H PRN PRN Reason: PAIN Ascorbic Acid (Vitamin C -) 500 mg PO DAILY ON LICENSE OF [facility] Last Admin: 03/17/19 10:43 Dose: 500 mg Aspirin (Asa -) 81 mg PO DAILY ON [facility] OF [facility] Last Admin: 03/17/19 10:43 Dose: 81 mg Carvedilol (Coreg -) 6.25 mg PO BID ON LICENSE OF [facility] Last Admin: 03/17/19 10:43 Dose: 6.25 mg Docusate Sodium (Colace -) 100 mg PO HS ON LICENSE OF [facility] Last Admin: 03/16/19 21:02 Dose: 100 mg Piperacillin Sod/Tazobactam (Sod 2.25 gm/ Dextrose) 50 mls @ 100 mls/hr IVPB Q6H-IV [facility]; Protocol Last Admin: 03/17/19 14:05 Dose: 100 mls/hr Dextrose/Sodium Chloride (D5-Ns -) 1,000 mls @ 42 mls/hr IV ASDIR ON LICENSE OF [facility] Last Admin: 03/17/19 02:40 Dose: 42 mls/hr Multivitamins/Minerals/Vitamin C (Tab-A-Vit -) 1 tab PO DAILY ON [facility] OF [facility] Last Admin: 03/17/19 10:43 Dose: 1 tab Pantoprazole Sodium (Protonix -) 40 mg PO BID ON [facility] OF [facility] Last Admin: 03/17/19 10:43 Dose: 40 mg Rosuvastatin Calcium (Crestor -) 5 mg PO [facility] Last Admin: 03/16/19 21:02 Dose: 5 mg Senna (Senna -) 2 tab PO HS ON LICENSE OF [facility] Last Admin: 03/16/19 21:03 Dose: 2 tab Simethicone (Mylicon Liquid -) 40 mg PO QID PRN PRN Reason: CONSTIPATION Solifenacin (Vesicare -) 5 mg PO HS ON LICENSE OF [facility] Last Admin: 03/16/19 21:03 Dose: 5 mg - Objective Vital Signs: Vital Signs Temperature 98.5 F 03/17/19 14:50 Pulse Rate 65 03/17/19 14:50 Respiratory Rate 20 03/17/19 14:50 Blood Pressure 103/49 L 03/17/19 14:50 O2 Sat by Pulse Oximetry (%) 98 03/16/19 21:00 Constitutional: Yes: No Distress, Calm Cardiovascular: Yes: Regular Rate and Rhythm, S1, S2 Respiratory: Yes: Regular, CTA Bilaterally. No: Rales Gastrointestinal: Yes: Normal Bowel Sounds, Soft. No: Tenderness Neurological: Yes: Alert, Oriented Labs: CBC, BMP 03/17/19 06:25 03/17/19 06:25 INR, PTT INR 3.12 (0.83-1.09) H 03/16/19 06:06 Problem List - Problems (1) Coffee ground emesis Code(s): K92.0 - HEMATEMESIS (2) Fever Code(s): R50.9 - FEVER, UNSPECIFIED (3) ROSE MARY (acute kidney injury) Code(s): N17.9 - ACUTE KIDNEY FAILURE, UNSPECIFIED (4) UTI (urinary tract infection) Code(s): N39.0 - URINARY TRACT INFECTION, SITE NOT SPECIFIED Qualifiers: Indwelling urinary catheter type: unspecified (5) Vaginal bleeding Code(s): N93.9 - ABNORMAL UTERINE AND VAGINAL BLEEDING, UNSPECIFIED (6) Atrial fibrillation Code(s): I48.91 - UNSPECIFIED ATRIAL FIBRILLATION (7) Supratherapeutic INR Code(s): R79.1 - ABNORMAL COAGULATION PROFILE (8) Hypertension Code(s): I10 - ESSENTIAL (PRIMARY) HYPERTENSION (9) Constipation Code(s): K59.00 - CONSTIPATION, UNSPECIFIED (10) Sepsis Code(s): A41.9 - SEPSIS, UNSPECIFIED ORGANISM Assessment/Plan IVF; low rate IV abtx Diet was advanced, tolerated well GI and ID consults are appreciated Coumadin is on hold secondary to high INR AM labs Pt's condition was d/w pt's nurse. I called pt's [employer], no answer, left a message
[2019-03-17] MEDS: DOCUSATE SODIUM 100 MG CAPSULE (FP) PO SCH (21:15)
[2019-03-17] MEDS: ROSUVASTATIN CA 5 MG TABLET (FP) PO SCH (21:15)
[2019-03-17] MEDS: SENNOSIDES 8.6MG TABLET (FP) PO SCH (21:16)
[2019-03-17] MEDS: SOLIFENACIN SUCCINATE 5 MG TAB PO SCH (21:16)
[2019-03-18] MEDS ORDERED: PIPERACILLIN/TAZOBACTAM 2.25 GM VIAL IVPB ONE ×4 (01:25→20:45)
[2019-03-18] MEDS ORDERED: DEXTROSE 5%-WATER - 50 ML IVPB ONE ×4 (01:25→20:46)
[2019-03-18] MEDS: DEXTROSE 5%-NORMAL SALINE 1,000 ML IV SCH (02:49)
[2019-03-18] MEDS: PIPERACILLIN/TAZOB 2.25 GM 2.25 GM in DEXTROSE 5%-WATER - 50 ML IVPB SCH ×4 (02:49→22:00)
[2019-03-18 07:46] LABS: INR 1.89 (0.83-1.09); PROTHROMBIN TIME (PATIENT) 22.5 SEC (9.7-13.0)
[2019-03-18 07:56] LABS: BLOOD UREA NITROGEN 20.6 mg/dL (7-18); CALCIUM 8.3 mg/dL (8.5-10.1); CREATININE 1.7 mg/dL (0.55-1.3); POTASSIUM 3.8 mmol/L (3.5-5.1)
[2019-03-18 08:00] LABS: BASO % 0.3 % (0-2.0); EOS % 5.8 % (0-4.5); HEMATOCRIT 30.8 % (32.4-45.2); LYMPH % 5.4 % (8-40); MCHC 32.5 g/dl (32.0-36.0); MEAN CELL VOLUME 89.4 fl (80-96); MEAN PLT VOLUME 6.6 fl (7.5-11.1); MONO % 7.6 % (3.8-10.2); NEUT % 80.9 % (42.8-82.8); PLATELET COUNT 576 K/MM3 (134-434); RBC 3.44 M/mm3 (3.60-5.2); RDW 13.6 % (11.6-15.6); WHITE BLOOD COUNT 12.4 K/mm3 (4.0-10.0)
--- NOTE | 2019-03-18 09:35 | PN ---
Progress Note, Physician History of Present Illness: Pt w/o fever, chills, CP, palpitations, cough, SOB, abd pain, diarhea, dysuria. Pt had PT today. - Current Medication List Current Medications: Active Medications Acetaminophen (Tylenol -) 650 mg PO Q6H PRN PRN Reason: PAIN Ascorbic Acid (Vitamin C -) 500 mg PO DAILY [facility] Last Admin: 03/17/19 10:43 Dose: 500 mg Aspirin (Asa -) 81 mg PO DAILY [facility] Last Admin: 03/17/19 10:43 Dose: 81 mg Carvedilol (Coreg -) 6.25 mg PO BID [facility] Last Admin: 03/17/19 21:15 Dose: Not Given Docusate Sodium (Colace -) 100 mg PO HS [facility] Last Admin: 03/17/19 21:15 Dose: Not Given Piperacillin Sod/Tazobactam (Sod 2.25 gm/ Dextrose) 50 mls @ 100 mls/hr IVPB Q6H-IV [facility]; Protocol Last Admin: 03/18/19 02:49 Dose: 100 mls/hr Dextrose/Sodium Chloride (D5-Ns -) 1,000 mls @ 42 mls/hr IV ASDIR [facility] Last Admin: 03/18/19 02:49 Dose: 42 mls/hr Multivitamins/Minerals/Vitamin C (Tab-A-Vit -) 1 tab PO DAILY [facility] Last Admin: 03/17/19 10:43 Dose: 1 tab Pantoprazole Sodium (Protonix -) 40 mg PO BID [facility] Last Admin: 03/17/19 21:15 Dose: 40 mg Rosuvastatin Calcium (Crestor -) 5 mg PO [facility] Last Admin: 03/17/19 21:15 Dose: 5 mg Senna (Senna -) 2 tab PO HS [facility] Last Admin: 03/17/19 21:16 Dose: 2 tab Simethicone (Mylicon Liquid -) 40 mg PO QID PRN PRN Reason: CONSTIPATION Solifenacin (Vesicare -) 5 mg PO HS [facility] Last Admin: 03/17/19 21:16 Dose: 5 mg - Objective Vital Signs: Vital Signs Temperature 98.2 F 03/18/19 06:00 Pulse Rate 93 H 03/18/19 06:00 Respiratory Rate 20 03/18/19 06:00 Blood Pressure 127/78 03/18/19 06:00 O2 Sat by Pulse Oximetry (%) 98 03/17/19 21:00 Constitutional: Yes: No Distress, Calm Cardiovascular: Yes: Regular Rate and Rhythm, S1, S2 Respiratory: Yes: Regular, CTA Bilaterally. No: Rales Gastrointestinal: Yes: Normal Bowel Sounds, Soft, Tenderness Neurological: Yes: Alert, Oriented Labs: CBC, BMP 03/18/19 07:05 03/18/19 07:05 INR, PTT INR 1.89 (0.83-1.09) H 03/18/19 07:05 Problem List - Problems (1) Coffee ground emesis Code(s): K92.0 - HEMATEMESIS (2) Fever Code(s): R50.9 - FEVER, UNSPECIFIED (3) ROSE MARY (acute kidney injury) Code(s): N17.9 - ACUTE KIDNEY FAILURE, UNSPECIFIED (4) UTI (urinary tract infection) Code(s): N39.0 - URINARY TRACT INFECTION, SITE NOT SPECIFIED Qualifiers: Indwelling urinary catheter type: unspecified (5) Vaginal bleeding Code(s): N93.9 - ABNORMAL UTERINE AND VAGINAL BLEEDING, UNSPECIFIED (6) Atrial fibrillation Code(s): I48.91 - UNSPECIFIED ATRIAL FIBRILLATION (7) Supratherapeutic INR Code(s): R79.1 - ABNORMAL COAGULATION PROFILE (8) Hypertension Code(s): I10 - ESSENTIAL (PRIMARY) HYPERTENSION (9) Constipation Code(s): K59.00 - CONSTIPATION, UNSPECIFIED (10) Sepsis Code(s): A41.9 - SEPSIS, UNSPECIFIED ORGANISM Assessment/Plan WBC are trending down DC IVF. IV abtx Diet was advanced, tolerated well GI and ID consults are appreciated Coumadin to be restarted tonight; INR i [place] AM labs Pt's condition was d/w pt's nurse.
[2019-03-18] MEDS: MULTIVITAMINS (DAILY MVI) TABLET (FP) PO SCH (10:43)
[2019-03-18] MEDS: CARVEDILOL 6.25 MG TABLET (FP) PO SCH ×2 (10:43→21:44)
[2019-03-18] MEDS: ASPIRIN 81 MG CHEWABLE TABLETS PO SCH (10:43)
[2019-03-18] MEDS: ASCORBIC ACID 500 MG TABLET (FP) PO SCH (10:43)
[2019-03-18] MEDS: PANTOPRAZOLE 40 MG TABLET (FP) PO SCH ×2 (10:43→21:44)
[2019-03-18 11:54] LABS: ANISOCYTOSIS 0; MACROCYTOSIS 0; PLATELET ESTIMATE INCREASED
[2019-03-18] MEDS ORDERED: WARFARIN NA 2 MG TABLET (UD) PO ONE (18:00)
[2019-03-18] MEDS: SOLIFENACIN SUCCINATE 5 MG TAB PO SCH (21:44)
[2019-03-18] MEDS: SENNOSIDES 8.6MG TABLET (FP) PO SCH (21:44)
[2019-03-18] MEDS: ROSUVASTATIN CA 5 MG TABLET (FP) PO SCH (21:44)
[2019-03-18] MEDS: DOCUSATE SODIUM 100 MG CAPSULE (FP) PO SCH (22:00)
[2019-03-19] MEDS ORDERED: PIPERACILLIN/TAZOBACTAM 2.25 GM VIAL IVPB ONE (01:49)
[2019-03-19] MEDS ORDERED: DEXTROSE 5%-WATER - 50 ML IVPB ONE (01:50)
[2019-03-19] MEDS: PIPERACILLIN/TAZOB 2.25 GM 2.25 GM in DEXTROSE 5%-WATER - 50 ML IVPB SCH ×2 (02:30→10:38)
[2019-03-19 08:04] LABS: BLOOD UREA NITROGEN 18.1 mg/dL (7-18); CALCIUM 8.5 mg/dL (8.5-10.1); CREATININE 1.6 mg/dL (0.55-1.3); POTASSIUM 3.8 mmol/L (3.5-5.1)
[2019-03-19 08:19] LABS: INR 1.6 (0.83-1.09)
[2019-03-19 08:25] LABS: HEMATOCRIT 28.5 % (32.4-45.2); HEMOGLOBIN 9.5 GM/dL (10.7-15.3); MCH 29.5 pg (25.7-33.7); MCHC 33.2 g/dl (32.0-36.0); MEAN CELL VOLUME 88.8 fl (80-96); MEAN PLT VOLUME 6.6 fl (7.5-11.1); PLATELET COUNT 566 K/MM3 (134-434); RBC 3.21 M/mm3 (3.60-5.2); RDW 13.4 % (11.6-15.6); WHITE BLOOD COUNT 13.1 K/mm3 (4.0-10.0)
--- NOTE | 2019-03-19 09:39 | PN ---
Progress Note (short form) - Note Progress Note: NAD alert Vital Signs Period Temp Pulse Resp BP Sys/Zafar Pulse Ox Last 24 Hr 97.4 F-98.6 F 63-94 18-20 117-148/53-84 99-100 indurated area right breast unchanged- cor-rrr lungs clear abd soft,protuberant romero intact ext trace edema CBC, BMP 03/19/19 06:32 03/19/19 06:32 Microbiology 03/11/19 15:00 Blood - Peripheral Venous Blood Culture - Final NO GROWTH AFTER 5 DAYS INCUBATION 03/11/19 15:00 Blood - Peripheral Venous Blood Culture - Final NO GROWTH AFTER 5 DAYS INCUBATION 03/11/19 15:45 Urine - Urine Clean Catch Urine Culture - Final Contaminated: Please Repeat ct scan collection right breast multiple broken ribs right- healing abd/pelvis- adnexal mass left mild hydronephrosis left hip prosthesis a/p has completed 7 days of zosyn- d/c antibiotics and observe urinary retention-has romero history of AVR dementia adnexal mass- tumor markers high right breast fluid collection noted- ?trauma observe off antibioitics Problem List - Problems (1) Sepsis Code(s): A41.9 - SEPSIS, UNSPECIFIED ORGANISM (2) Coffee ground emesis Code(s): K92.0 - HEMATEMESIS (3) ROSE MARY (acute kidney injury) Code(s): N17.9 - ACUTE KIDNEY FAILURE, UNSPECIFIED (4) UTI (urinary tract infection) Code(s): N39.0 - URINARY TRACT INFECTION, SITE NOT SPECIFIED Qualifiers: Indwelling urinary catheter type: unspecified (5) H/O aortic valve replacement Code(s): Z95.2 - PRESENCE OF PROSTHETIC HEART VALVE
[2019-03-19] MEDS: CARVEDILOL 6.25 MG TABLET (FP) PO SCH ×2 (10:51→21:52)
[2019-03-19] MEDS: PANTOPRAZOLE 40 MG TABLET (FP) PO SCH ×2 (10:51→21:54)
[2019-03-19] MEDS: ASPIRIN 81 MG CHEWABLE TABLETS PO SCH (10:51)
[2019-03-19] MEDS: ASCORBIC ACID 500 MG TABLET (FP) PO SCH (10:51)
[2019-03-19] MEDS: MULTIVITAMINS (DAILY MVI) TABLET (FP) PO SCH (11:12)
--- NOTE | 2019-03-19 14:42 | PN ---
Progress Note, Physician History of Present Illness: Pt w/o complains. Pt w/o fever, cough, SOB, abd pain, diarhea, dysuria. Pt w/o CP. Pt had PT again today. - Current Medication List Current Medications: Active Medications Acetaminophen (Tylenol -) 650 mg PO Q6H PRN PRN Reason: PAIN Ascorbic Acid (Vitamin C -) 500 mg PO DAILY [facility] Last Admin: 03/19/19 10:51 Dose: 500 mg Aspirin (Asa -) 81 mg PO DAILY [facility] Last Admin: 03/19/19 10:51 Dose: 81 mg Carvedilol (Coreg -) 6.25 mg PO BID [facility] Last Admin: 03/19/19 10:51 Dose: 6.25 mg Docusate Sodium (Colace -) 100 mg PO [facility] Last Admin: 03/18/19 22:00 Dose: Not Given Multivitamins/Minerals/Vitamin C (Tab-A-Vit -) 1 tab PO DAILY [facility] Last Admin: 03/19/19 11:12 Dose: 1 tab Pantoprazole Sodium (Protonix -) 40 mg PO BID [facility] Last Admin: 03/19/19 10:51 Dose: 40 mg Rosuvastatin Calcium (Crestor -) 5 mg PO [facility] Last Admin: 03/18/19 21:44 Dose: 5 mg Senna (Senna -) 2 tab PO [facility] Last Admin: 03/18/19 21:44 Dose: 2 tab Simethicone (Mylicon Liquid -) 40 mg PO QID PRN PRN Reason: CONSTIPATION Solifenacin (Vesicare -) 5 mg PO [facility] Last Admin: 03/18/19 21:44 Dose: 5 mg - Objective Vital Signs: Vital Signs Temperature 98.6 F 03/19/19 06:00 Pulse Rate 68 03/19/19 10:00 Respiratory Rate 18 03/19/19 10:00 Blood Pressure 118/54 L 03/19/19 10:00 O2 Sat by Pulse Oximetry (%) 100 03/18/19 21:00 Constitutional: Yes: No Distress, Calm Cardiovascular: Yes: Regular Rate and Rhythm, S1, S2 Respiratory: Yes: Regular, CTA Bilaterally. No: Rales Gastrointestinal: Yes: Normal Bowel Sounds, Soft. No: Tenderness Neurological: Yes: Alert, Oriented Labs: CBC, BMP 03/19/19 06:32 03/19/19 06:32 INR, PTT INR 1.60 (0.83-1.09) H 03/19/19 06:32 Problem List - Problems (1) Coffee ground emesis Code(s): K92.0 - HEMATEMESIS (2) Fever Code(s): R50.9 - FEVER, UNSPECIFIED (3) ROSE MARY (acute kidney injury) Code(s): N17.9 - ACUTE KIDNEY FAILURE, UNSPECIFIED (4) UTI (urinary tract infection) Code(s): N39.0 - URINARY TRACT INFECTION, SITE NOT SPECIFIED Qualifiers: Indwelling urinary catheter type: unspecified (5) Vaginal bleeding Code(s): N93.9 - ABNORMAL UTERINE AND VAGINAL BLEEDING, UNSPECIFIED (6) Atrial fibrillation Code(s): I48.91 - UNSPECIFIED ATRIAL FIBRILLATION (7) Supratherapeutic INR Code(s): R79.1 - ABNORMAL COAGULATION PROFILE (8) Hypertension Code(s): I10 - ESSENTIAL (PRIMARY) HYPERTENSION (9) Constipation Code(s): K59.00 - CONSTIPATION, UNSPECIFIED (10) Sepsis Code(s): A41.9 - SEPSIS, UNSPECIFIED ORGANISM Assessment/Plan WBC is trending up today; to monitor. off IVF. IV abtx were DC'ed today Diet was advanced, tolerated well GI and ID consults are appreciated Coumadin tonight; INR in AM AM labs Pt's condition was d/w pt's nurse.
[2019-03-19] MEDS ORDERED: WARFARIN NA 2 MG TABLET (UD) PO ONE (18:00)
[2019-03-19] MEDS: ROSUVASTATIN CA 5 MG TABLET (FP) PO SCH (21:54)
[2019-03-19] MEDS: SENNOSIDES 8.6MG TABLET (FP) PO SCH (21:54)
[2019-03-19] MEDS: DOCUSATE SODIUM 100 MG CAPSULE (FP) PO SCH (21:55)
[2019-03-19] MEDS: SOLIFENACIN SUCCINATE 5 MG TAB PO SCH (21:55)
[2019-03-20 07:42] LABS: BLOOD UREA NITROGEN 16.7 mg/dL (7-18); CALCIUM 8.3 mg/dL (8.5-10.1); CREATININE 1.5 mg/dL (0.55-1.3); POTASSIUM 3.9 mmol/L (3.5-5.1)
[2019-03-20 07:58] LABS: BASO % 0.5 % (0-2.0); EOS % 4.9 % (0-4.5); HEMATOCRIT 30.1 % (32.4-45.2); HEMOGLOBIN 9.8 GM/dL (10.7-15.3); LYMPH % 5.4 % (8-40); MCHC 32.5 g/dl (32.0-36.0); MEAN CELL VOLUME 89.3 fl (80-96); MEAN PLT VOLUME 6.6 fl (7.5-11.1); MONO % 6.7 % (3.8-10.2); NEUT % 82.5 % (42.8-82.8); PLATELET COUNT 577 K/MM3 (134-434); RBC 3.37 M/mm3 (3.60-5.2); RDW 13.5 % (11.6-15.6)
[2019-03-20 08:06] LABS: INR 1.61 (0.83-1.09); PROTHROMBIN TIME (PATIENT) 19.1 SEC (9.7-13.0)
[2019-03-20 09:54] LABS: ANISOCYTOSIS 0; MACROCYTOSIS 0; PLATELET ESTIMATE INCREASED
[2019-03-20] MEDS: CARVEDILOL 6.25 MG TABLET (FP) PO SCH ×2 (10:49→21:35)
[2019-03-20] MEDS: MULTIVITAMINS (DAILY MVI) TABLET (FP) PO SCH (10:49)
[2019-03-20] MEDS: ASCORBIC ACID 500 MG TABLET (FP) PO SCH (10:50)
[2019-03-20] MEDS: PANTOPRAZOLE 40 MG TABLET (FP) PO SCH ×2 (10:50→21:35)
[2019-03-20] MEDS: ASPIRIN 81 MG CHEWABLE TABLETS PO SCH (10:50)
--- NOTE | 2019-03-20 16:29 | PN ---
Progress Note, Physician History of Present Illness: Pt w/o complains. Pt w/o fever, cough, SOB, CP, abd pain, diarhea, dysuria. - Current Medication List Current Medications: Active Medications Acetaminophen (Tylenol -) 650 mg PO Q6H PRN PRN Reason: PAIN Last Admin: 03/19/19 21:52 Dose: 650 mg Ascorbic Acid (Vitamin C -) 500 mg PO DAILY [facility] Last Admin: 03/20/19 10:50 Dose: 500 mg Aspirin (Asa -) 81 mg PO DAILY [facility] Last Admin: 03/20/19 10:50 Dose: 81 mg Carvedilol (Coreg -) 6.25 mg PO BID [facility] Last Admin: 03/20/19 10:49 Dose: 6.25 mg Docusate Sodium (Colace -) 100 mg PO [facility] Last Admin: 03/19/19 21:55 Dose: Not Given Multivitamins/Minerals/Vitamin C (Tab-A-Vit -) 1 tab PO DAILY [facility] Last Admin: 03/20/19 10:49 Dose: 1 tab Pantoprazole Sodium (Protonix -) 40 mg PO BID [facility] Last Admin: 03/20/19 10:50 Dose: 40 mg Rosuvastatin Calcium (Crestor -) 5 mg PO [facility] Last Admin: 03/19/19 21:54 Dose: 5 mg Senna (Senna -) 2 tab PO [facility] Last Admin: 03/19/19 21:54 Dose: 2 tab Simethicone (Mylicon Liquid -) 40 mg PO QID PRN PRN Reason: CONSTIPATION Solifenacin (Vesicare -) 5 mg PO [facility] Last Admin: 03/19/19 21:55 Dose: 5 mg - Objective Vital Signs: Vital Signs Temperature 98.5 F 03/20/19 14:24 Pulse Rate 65 03/20/19 14:24 Respiratory Rate 21 H 03/20/19 14:24 Blood Pressure 114/54 L 03/20/19 14:24 O2 Sat by Pulse Oximetry (%) 100 03/19/19 21:00 Constitutional: Yes: No Distress, Calm Cardiovascular: Yes: Regular Rate and Rhythm, S1, S2 Respiratory: Yes: Regular, CTA Bilaterally. No: Rales Gastrointestinal: Yes: Normal Bowel Sounds, Soft. No: Tenderness Neurological: Yes: Alert, Oriented Labs: CBC, BMP 03/20/19 06:30 03/20/19 06:30 INR, PTT INR 1.61 (0.83-1.09) H 03/20/19 06:30 Problem List - Problems (1) Coffee ground emesis Code(s): K92.0 - HEMATEMESIS (2) Fever Code(s): R50.9 - FEVER, UNSPECIFIED (3) ROSE MARY (acute kidney injury) Code(s): N17.9 - ACUTE KIDNEY FAILURE, UNSPECIFIED (4) UTI (urinary tract infection) Code(s): N39.0 - URINARY TRACT INFECTION, SITE NOT SPECIFIED Qualifiers: Indwelling urinary catheter type: unspecified (5) Vaginal bleeding Code(s): N93.9 - ABNORMAL UTERINE AND VAGINAL BLEEDING, UNSPECIFIED (6) Atrial fibrillation Code(s): I48.91 - UNSPECIFIED ATRIAL FIBRILLATION (7) Supratherapeutic INR Code(s): R79.1 - ABNORMAL COAGULATION PROFILE (8) Hypertension Code(s): I10 - ESSENTIAL (PRIMARY) HYPERTENSION (9) Constipation Code(s): K59.00 - CONSTIPATION, UNSPECIFIED (10) Sepsis Code(s): A41.9 - SEPSIS, UNSPECIFIED ORGANISM Assessment/Plan WBC is trending down today; to monitor. off IVF. Diet was advanced, tolerated well GI and ID consults are appreciated Coumadin tonight; INR in AM AM labs Pt's condition was d/w pt's nurse.
[2019-03-20] MEDS ORDERED: WARFARIN NA 2 MG TABLET (UD) PO ONE (20:15)
[2019-03-20] MEDS: DOCUSATE SODIUM 100 MG CAPSULE (FP) PO SCH (21:32)
[2019-03-20] MEDS: SENNOSIDES 8.6MG TABLET (FP) PO SCH (21:35)
[2019-03-20] MEDS: SOLIFENACIN SUCCINATE 5 MG TAB PO SCH (21:35)
[2019-03-20] MEDS: ROSUVASTATIN CA 5 MG TABLET (FP) PO SCH (21:35)
[2019-03-21 08:00] LABS: HEMATOCRIT 30.9 % (32.4-45.2); HEMOGLOBIN 10.1 GM/dL (10.7-15.3); MCH 29.1 pg (25.7-33.7); MCHC 32.7 g/dl (32.0-36.0); MEAN CELL VOLUME 89.1 fl (80-96); MEAN PLT VOLUME 6.5 fl (7.5-11.1); PLATELET COUNT 579 K/MM3 (134-434); RBC 3.47 M/mm3 (3.60-5.2); RDW 13.5 % (11.6-15.6); WHITE BLOOD COUNT 11.3 K/mm3 (4.0-10.0)
[2019-03-21 08:08] LABS: INR 1.74 (0.83-1.09); PROTHROMBIN TIME (PATIENT) 20.7 SEC (9.7-13.0)
[2019-03-21 08:22] LABS: BLOOD UREA NITROGEN 16.8 mg/dL (7-18); CALCIUM 8.5 mg/dL (8.5-10.1); CREATININE 1.5 mg/dL (0.55-1.3); POTASSIUM 3.8 mmol/L (3.5-5.1)
[2019-03-21] MEDS ORDERED: PT OWN MED DRAWER 7, Y5N ONE (10:05)
[2019-03-21] MEDS: CARVEDILOL 6.25 MG TABLET (FP) PO SCH ×2 (10:13→21:57)
[2019-03-21] MEDS: PANTOPRAZOLE 40 MG TABLET (FP) PO SCH ×2 (10:13→21:56)
[2019-03-21] MEDS: MULTIVITAMINS (DAILY MVI) TABLET (FP) PO SCH (10:13)
[2019-03-21] MEDS: ASPIRIN 81 MG CHEWABLE TABLETS PO SCH (10:13)
[2019-03-21] MEDS: ASCORBIC ACID 500 MG TABLET (FP) PO SCH (10:13)
--- NOTE | 2019-03-21 10:22 | PN ---
Progress Note, Physician History of Present Illness: Pt w/o fever, cough, SOB, CP, abd pain, diarrhea, dysuria. - Current Medication List Current Medications: Active Medications Acetaminophen (Tylenol -) 650 mg PO Q6H PRN PRN Reason: PAIN Last Admin: 03/19/19 21:52 Dose: 650 mg Ascorbic Acid (Vitamin C -) 500 mg PO DAILY [facility] Last Admin: 03/21/19 10:13 Dose: 500 mg Aspirin (Asa -) 81 mg PO DAILY [facility] Last Admin: 03/21/19 10:13 Dose: 81 mg Carvedilol (Coreg -) 6.25 mg PO BID [facility] Last Admin: 03/21/19 10:13 Dose: 6.25 mg Docusate Sodium (Colace -) 100 mg PO [facility] Last Admin: 03/20/19 21:32 Dose: Not Given Multivitamins/Minerals/Vitamin C (Tab-A-Vit -) 1 tab PO DAILY [facility] Last Admin: 03/21/19 10:13 Dose: 1 tab Pantoprazole Sodium (Protonix -) 40 mg PO BID [facility] Last Admin: 03/21/19 10:13 Dose: 40 mg Rosuvastatin Calcium (Crestor -) 5 mg PO [facility] Last Admin: 03/20/19 21:35 Dose: 5 mg Senna (Senna -) 2 tab PO [facility] Last Admin: 03/20/19 21:35 Dose: 2 tab Simethicone (Mylicon Liquid -) 40 mg PO QID PRN PRN Reason: CONSTIPATION Solifenacin (Vesicare -) 5 mg PO [facility] Last Admin: 03/20/19 21:35 Dose: 5 mg - Objective Vital Signs: Vital Signs Temperature 98.0 F 03/21/19 10:00 Pulse Rate 104 H 03/21/19 10:00 Respiratory Rate 18 03/21/19 10:00 Blood Pressure 106/55 L 03/21/19 10:00 O2 Sat by Pulse Oximetry (%) 100 03/19/19 21:00 Constitutional: Yes: No Distress Cardiovascular: Yes: Regular Rate and Rhythm, S1, S2 Respiratory: Yes: Regular, CTA Bilaterally. No: Rales Gastrointestinal: Yes: Normal Bowel Sounds, Soft. No: Tenderness Neurological: Yes: Alert, Oriented Labs: CBC, BMP 03/21/19 07:25 03/21/19 07:25 INR, PTT INR 1.74 (0.83-1.09) H 03/21/19 07:25 Problem List - Problems (1) Coffee ground emesis Code(s): K92.0 - HEMATEMESIS (2) Fever Code(s): R50.9 - FEVER, UNSPECIFIED (3) ROSE MARY (acute kidney injury) Code(s): N17.9 - ACUTE KIDNEY FAILURE, UNSPECIFIED (4) UTI (urinary tract infection) Code(s): N39.0 - URINARY TRACT INFECTION, SITE NOT SPECIFIED Qualifiers: Indwelling urinary catheter type: unspecified (5) Vaginal bleeding Code(s): N93.9 - ABNORMAL UTERINE AND VAGINAL BLEEDING, UNSPECIFIED (6) Atrial fibrillation Code(s): I48.91 - UNSPECIFIED ATRIAL FIBRILLATION (7) Supratherapeutic INR Code(s): R79.1 - ABNORMAL COAGULATION PROFILE (8) Hypertension Code(s): I10 - ESSENTIAL (PRIMARY) HYPERTENSION (9) Constipation Code(s): K59.00 - CONSTIPATION, UNSPECIFIED (10) Sepsis Code(s): A41.9 - SEPSIS, UNSPECIFIED ORGANISM Assessment/Plan Persistant Luekocytosis; to f/u with ID; to monitor. off IVF. Diet was advanced, tolerated well GI and ID consults are appreciated Coumadin tonight; INR in AM AM labs Pt's condition was d/w pt's nurse.
[2019-03-21] MEDS ORDERED: WARFARIN NA 2 MG TABLET (UD) PO ONE ×2 (18:00)
[2019-03-21] MEDS: DOCUSATE SODIUM 100 MG CAPSULE (FP) PO SCH (21:55)
[2019-03-21] MEDS: SOLIFENACIN SUCCINATE 5 MG TAB PO SCH (21:57)
[2019-03-21] MEDS: SENNOSIDES 8.6MG TABLET (FP) PO SCH (21:57)
[2019-03-21] MEDS: ROSUVASTATIN CA 5 MG TABLET (FP) PO SCH (21:57)
[2019-03-22 08:34] LABS: HEMOGLOBIN 10.5 GM/dL (10.7-15.3); INR 1.98 (0.83-1.09); MCH 29.5 pg (25.7-33.7); MCHC 32.8 g/dl (32.0-36.0); MEAN CELL VOLUME 89.9 fl (80-96); MEAN PLT VOLUME 6.5 fl (7.5-11.1); PLATELET COUNT 562 K/MM3 (134-434); PROTHROMBIN TIME (PATIENT) 23.5 SEC (9.7-13.0); RBC 3.55 M/mm3 (3.60-5.2); RDW 13.6 % (11.6-15.6); WHITE BLOOD COUNT 9.7 K/mm3 (4.0-10.0)
--- NOTE | 2019-03-22 10:04 | PN ---
Progress Note, Physician History of Present Illness: AWAKE, ALERT SUPINE IN BED NO COMPLAINTS DENIES DYSURIA NO FEVER/ CHILLS AFEBRILE WBC WNL BC (-) - Current Medication List Current Medications: Active Medications Acetaminophen (Tylenol -) 650 mg PO Q6H PRN PRN Reason: PAIN Last Admin: 03/19/19 21:52 Dose: 650 mg Ascorbic Acid (Vitamin C -) 500 mg PO DAILY [facility] Last Admin: 03/21/19 10:13 Dose: 500 mg Aspirin (Asa -) 81 mg PO DAILY [facility] Last Admin: 03/21/19 10:13 Dose: 81 mg Carvedilol (Coreg -) 6.25 mg PO BID [facility] Last Admin: 03/21/19 21:57 Dose: 6.25 mg Docusate Sodium (Colace -) 100 mg PO [facility] Last Admin: 03/21/19 21:55 Dose: Not Given Multivitamins/Minerals/Vitamin C (Tab-A-Vit -) 1 tab PO DAILY [facility] Last Admin: 03/21/19 10:13 Dose: 1 tab Pantoprazole Sodium (Protonix -) 40 mg PO BID [facility] Last Admin: 03/21/19 21:56 Dose: 40 mg Rosuvastatin Calcium (Crestor -) 5 mg PO [facility] Last Admin: 03/21/19 21:57 Dose: 5 mg Senna (Senna -) 2 tab PO [facility] Last Admin: 03/21/19 21:57 Dose: 2 tab Simethicone (Mylicon Liquid -) 40 mg PO QID PRN PRN Reason: CONSTIPATION Solifenacin (Vesicare -) 5 mg PO [facility] Last Admin: 03/21/19 21:57 Dose: 5 mg - Objective Vital Signs: Vital Signs Temperature 98.6 F 03/22/19 05:52 Pulse Rate 67 03/22/19 05:52 Respiratory Rate 20 03/22/19 05:52 Blood Pressure 126/60 03/22/19 05:52 O2 Sat by Pulse Oximetry (%) 96 03/21/19 10:00 Constitutional: Yes: No Distress, Obese Cardiovascular: Yes: Regular Rate and Rhythm, S1, S2 Respiratory: Yes: Diminished Gastrointestinal: Yes: Normal Bowel Sounds, Soft, Abdomen, Obese. No: Tenderness Edema: Yes Labs: CBC, BMP 03/22/19 07:50 03/21/19 07:25 INR, PTT INR 1.98 (0.83-1.09) H 03/22/19 07:50 Assessment/Plan ? SEPSIS SECONDARY TO UTI LEUKOCYTOSIS RESOLVED OBS COMPLETED 7D COURSE OF ZOSYN OBSERVE OFF NO OBJECTION TO DISCHARGE
[2019-03-22] MEDS: ASCORBIC ACID 500 MG TABLET (FP) PO SCH (10:30)
[2019-03-22] MEDS: CARVEDILOL 6.25 MG TABLET (FP) PO SCH (10:30)
[2019-03-22] MEDS: ASPIRIN 81 MG CHEWABLE TABLETS PO SCH (10:30)
[2019-03-22] MEDS: PANTOPRAZOLE 40 MG TABLET (FP) PO SCH (10:30)
[2019-03-22] MEDS: MULTIVITAMINS (DAILY MVI) TABLET (FP) PO SCH (10:30)
--- NOTE | 2019-03-22 12:16 | DS ---
Physical Examination Vital Signs: Vital Signs Temperature 98.5 F 03/22/19 09:00 Pulse Rate 60 03/22/19 09:00 Respiratory Rate 18 03/22/19 09:00 Blood Pressure 121/60 03/22/19 09:00 O2 Sat by Pulse Oximetry (%) 97 03/22/19 10:00 Findings/Remarks: Pt w/o fever, chills, cough, CP, palp, abd pain, N,V, dysuria Constitutional: Yes: No Distress, Calm Cardiovascular: Yes: Pulse Irregular, S1, S2 Respiratory: Yes: Regular, CTA Bilaterally. No: Rales Gastrointestinal: Yes: Normal Bowel Sounds, Soft. No: Tenderness Edema: Yes (baseline) Edema: LLE: Trace, RLE: Trace Neurological: Yes: Alert, Oriented Labs: CBC, BMP 03/22/19 07:50 03/21/19 07:25 Discharge Summary Reason For Visit: UTI Current Active Problems ROSE MARY (acute kidney injury) (Acute) Adrenal adenoma (Acute) Cholelithiasis (Acute) Coffee ground emesis (Acute) Constipation (Acute) H/O aortic valve replacement (Acute) Hx of CABG (Acute) Hyponatremia (Acute) Leiomyoma of body of uterus (Acute) Pelvic mass (Acute) Vaginal bleeding (Acute) Procedures: Principal: Abd/ pelvis CT scan. Renal US. Bladder US. Chest CT scan Hospital Course: Pt was transferred from [facility] for single episode of coffee ground emesis , seen by GI (Dr Khanna), no intervention was recommended.; she was started on PPI IV; pt had stool checked for C Diff (negative). Pt was noticed to have UTI and sepsis, started on IV abtx and IVF; pt was seen by ID (Dr Bland/ Nael) . Pt had Chest CT scan (c/w Right breast fluid collection), abd/ pelvis CT scan in ER, showed no acute disease, right adnexal mass. Pt was noticed to have urinary retention, Page was placed; pt had renal and bladder US c/w no acute pathology, right ovarian multiple cysts, slightly enlarged uterus and thickened endometrium; pt was seen by [employer] Agent (Dr Sharp) for vaginal bleed, US findings; Dr Sharp recommended CA-125 ( found elevated). Pt improved slowly. Pt to be DC'ed back to [place]. Condition: Improved - Instructions Diet, Activity, Other Instructions: Resume diet Resume activity Disposition: [facility] - Home Medications Comprehensive Discharge Medication List: Ambulatory Orders see Patient Discharged Instructions
[2019-03-22 15:37] VITALS: BP 113/53; PULSE 70; TEMP 98.7
== END 2019-03-22 18:07 | DRG 872 ==
LOC: JER 13:05 → JERBED 16:11 → J5S 20:11
PROVIDERS: ADMIT Specialist; ATTEND Specialist
DX: A41.9 Sepsis, unspecified organism (principal); N17.9 Acute kidney failure, unspecified; N39.0 Urinary tract infection, site not specified; K92.0 Hematemesis; E87.1 Hypo-osmolality and hyponatremia; N13.30 Unspecified hydronephrosis; I48.91 Unspecified atrial fibrillation; Z79.01 Long term (current) use of anticoagulants; F03.90 Unspecified dementia, unspecified severity, without behavioral disturbance, psychotic disturbance, mood disturbance, and anxiety; E78.5 Hyperlipidemia, unspecified; Z95.2 Presence of prosthetic heart valve; Z66 Do not resuscitate; I25.10 Atherosclerotic heart disease of native coronary artery without angina pectoris; K59.00 Constipation, unspecified; E66.01 Morbid (severe) obesity due to excess calories; N83.9 Noninflammatory disorder of ovary, fallopian tube and broad ligament, unspecified; R33.9 Retention of urine, unspecified; Z68.35 Body mass index [BMI] 35.0-35.9, adult
CPT/HCPCS: 36415; 71045-TC-FY; 71250-TC; 74176-TC; 76775-TC; 76856-TC; 80048; 80053; 81003; 82272; 83880; 84484; 85025; 85027; 85610; 85651; 85730; 86304; 87040; 87086; 87324; 87449; 93005; 93010; 93306-TC; 97116-GP; 97161-GP; 99283-25; G0480; J0131; J7030

== ENCOUNTER 2019-04-27 14:20 | Emergency (ER) | payer OTHER | END 2019-04-27 21:02 | disposition home or self-care (01) | LOC: JER 14:20 ==